=== PATIENT | female | born 1965 | race Caucasian/White ===

== ENCOUNTER 2020-06-07 08:26 | Emergency (ER) | payer MEDICAID, SELFPAY ==
[2020-06-07 08:35] VITALS: BP 198/89; PULSE 69; RESP 18; TEMP 36.7; O2SAT 97; BMI 42.3
--- NOTE | 2020-06-07 08:35 | ED.FEMALEGU ---
HPI - Female Genitourinary General Chief complaint: Urogenital-Female Stated complaint: ?uti Time Seen by Provider: 06/07/20 08:34 Source: patient Mode of arrival: ambulatory Limitations: no limitations History of Present Illness HPI Narrative: Patient with one week of frequency and now with hematuria MD elicited complaint: dysuria and UTI Pertinent past history: recurrent UTIs Onset (ago): week(s) (1) Location of symptoms: urethra Quality of pain: cramping Consistency: intermittent Urinary symptoms: Dysuria, Urgency, Frequency and Hematuria Related Data Previous Rx's Medication Instructions Recorded cephalexin 500 mg PO QID #20 cap 06/07/20 Allergies Allergy/AdvReac Type Severity Reaction Status Date / Time levofloxacin [From Levaquin] Allergy Severe THROAT Verified 06/07/20 08:41 CLOSES Review of Systems Constitutional: Constitutional: Reports no additional constitutional complaints Eyes: Eyes: Reports no additional eye complaints ENT: Denies dizziness Cardiovascular: Cardiovascular: Reports no additional cardiovascular complaints Respiratory: Respiratory: Reports as per HPI Gastrointestinal: Gastrointestinal: Reports no additional gastrointestinal complaints Genitourinary: Genitourinary: Reports no additional female genitourinary complaints Musculoskeletal: Musculoskeletal: Reports no additional musculoskeletal complaints Integumentary/Breasts: Skin/Breast: Denies rash Neurologic: Reports system reviewed and no additional complaints, except as documented, Denies dizziness and Denies Sensory deficit (Neuro) Psychiatric: Psychiatric: Denies anxiety PMF Past Medical History Medical History (Updated 06/07/20 @ 10:24 by Jorge Christianson MD) Hypertension Surgical History (Updated 06/07/20 @ 08:40 by Ivonne East) Hx of appendectomy Hx of cholecystectomy Social History Social History Smoking Status: Unknown if ever smoked Advance Directives: No Advance Directives Information Provided: No Physical Exam Vital Signs: Vital Signs: Last Vital Signs Temp 98.1 F 06/07/20 08:35 Pulse 61 06/07/20 10:20 Resp 20 06/07/20 10:20 BP 188/87 H 06/07/20 10:20 Pulse Ox 100 06/07/20 10:20 Body Mass Index 42.3 Const: Other: obese female in not distress Orientation/consciousness: oriented to person and patient oriented x3 Limitations: no limitations HENMT: Head: Yes normal to inspection Ears: external ears normal General nose exam: Normal external nose present Mouth: Normal oral and palatal mucosa present and oropharynx normal Throat: Yes posterior oropharynx normal Eyes: General: appearance normal, both eyes and all related structures Neck: Other: supple Neck: Yes normal visual inspection Chest: Chest palpation & inspection: normal inspection of the chest Resp: Auscultation: clear to auscultation bilaterally Cardio: Jugular venous distension: no JVD Rate: regular rate Rhythm: regular rhythm Heart sounds: S1 normal heart sound present and S2 normal heart sound present GI: Inspection: Yes normal to inspection Palpation (GI): Soft to palpation, nontender and No hepatosplenomegaly present Auscultation: normal bowel sounds : General: Yes no CVA tenderness Back/Spine/Pelvis: Back: no CVA tenderness Skin: General skin exam: no rashes or lesions noted Neuro: General: oriented to person and patient oriented x3 Cranial nerves: Yes CN's II-XII intact bilaterally Motor exam (neuro): 5/5 motor strength present throughout Sensory Exam: No Sensory deficit (Neuro) Extrem: General: Yes normal to inspection Psych: Appearance: grossly normal Course Course Course Narrative: Patient with UTI and HTN will start keflex and valsartan and dc home. MDM - Female Genitourinary Differential Diagnosis Differential diagnosis: Likely urinary tract infection Lab Data Labs: Lab Results 06/07/20 Range/Units 08:56 Urine Color YELLOW Urine Appearance CLOUDY Urine pH 6.0 (5.0-8.0) Ur Specific [place] >= 1.030 H (1.005-1.025) Urine Protein 2+ H (NEG-TRACE) MG/DL Urine Glucose (UA) NEG (NEG) MG/DL Urine Ketones NEG (NEG) MG/DL Urine Blood 3+ H (NEG) Urine Nitrite POS H (NEG) Ur Leukocyte Esterase 1+ H (NEG) Urine RBC 30-49 H (0) /HPF Urine WBC 15-29 H (0-4) /HPF Ur Squamous Epith Cells 2+ /LPF Urine Bacteria 1+ /LPF Discharge Plan Discharge Clinical Impression: Urinary tract infection Qualifiers: Urinary tract infection type: acute cystitis Hematuria presence: with hematuria Qualified Code(s): N30.01 - Acute cystitis with hematuria Hypertension Qualifiers: Hypertension type: essential hypertension Qualified Code(s): I10 - Essential (primary) hypertension Patient Disposition: Home, Self-Care Instructions: Urinary Tract Infection in Women (ED) Prescriptions: New cephalexin 500 mg capsule 500 mg PO QID Qty: 20 RF: 0 Referrals: Physician,None [Primary Care Provider] - 2 days
[2020-06-07 09:19] LABS: Appearance Urine CLOUDY; Color Urine YELLOW; Glucose Urine UA NEG (NEG); Leukocyte Esterase Urine 1+ (NEG); Nitrite Urine POS (NEG); Specific Gravity - Urine >= 1.030 (1.005-1.025); UACC Culture Trigger YES; Urine Blood 3+ (NEG); Urine Ketones NEG (NEG); Urine Protein 2+ MG/DL (NEG-TRACE)
[2020-06-07 09:30] LABS: Bacteria Urine 1+ /LPF; RBC Urine 30-49 /HPF (0); Squamous Epithelial Cell Urine 2+ /LPF
[2020-06-07 09:52] VITALS: BP 198/89; PULSE 79
[2020-06-07] MEDS: Valsartan 80 MG TABLET PO (09:52)
[2020-06-07] MEDS: cephALEXin 500 MG CAPSULE PO (10:04)
[2020-06-07 10:20] VITALS: BP 188/87; PULSE 61; RESP 20; O2SAT 100
== END 2020-06-07 10:32 | disposition home or self-care (01) ==
PROVIDERS: Emergency Provider Emergency Medicine
DX: N30.01 Acute cystitis with hematuria (principal); I10 Essential (primary) hypertension; Z79.899 Other long term (current) drug therapy
CPT/HCPCS: 81001; 81003; 87086; 87088; 87186; 99283; 99284

== ENCOUNTER 2020-06-21 13:00 | Emergency (ER) | payer MEDICAID, SELFPAY ==
[2020-06-21 13:26] VITALS: BP 176/67; PULSE 85; RESP 18; TEMP 36.8; O2SAT 97; BMI 42.1
--- NOTE | 2020-06-21 13:44 | ED.FEMALEGU ---
HPI - Female Genitourinary General Chief complaint: Urogenital-Female Stated complaint: UTI Time Seen by Provider: 06/21/20 13:36 Source: patient Mode of arrival: ambulatory Limitations: no limitations History of Present Illness HPI Narrative: Patient comes emergency room complaining of dysuria. Patient states that on June 07 she was diagnosed with a UTI, started on cephalexin. Then patient went to see her primary care physician due to ongoing symptoms, started on Macrobid. Patient states it is her 6th day on Macrobid. Patient states she has been compliant with antibiotic regimens, but her symptoms are still ongoing. Denies hematuria, complaining of dysuria, and constant burning sensation in the suprapubic area. Patient states that now she has mild bilateral flank pain. Patient denies fever or chills Related Data Previous Rx's Medication Instructions Recorded cephalexin 500 mg PO QID #20 cap 06/07/20 levofloxacin 500 mg PO DAILY #14 tab 06/21/20 phenazopyridine 100 mg PO TID PRN 5 Days #14 tab 06/21/20 sulfamethoxazole-trimethoprim 1 tab PO BID #14 tab 06/21/20 [Bactrim DS] Allergies Allergy/AdvReac Type Severity Reaction Status Date / Time levofloxacin [From Levaquin] Allergy Severe THROAT Verified 06/21/20 13:34 CLOSES Review of Systems Review of Systems: Constitutional : No Weight loss, No Fever, No Chills, No Night Sweats, No Fatigue, No Malaise ENT/Mouth : No Hearing loss, No Ear Pain, No Nasal Congestion, No Sinus Pain, No Hoarseness, No sore throat, No Rhinorrhea, No Swallowing Difficulty Eyes: No Eye Pain, No Swelling, No Redness, No Foreign Body, No Discharge, No Vision Changes Cardiovascular : No Chest Pain, No SOB, No Dyspnea on Exertion, No Orthopnea, No Edema, No Palpitations Respiratory : No Cough, No Sputum, No Wheezing, No Smoke Exposure, No Dyspnea Gastrointestinal : No Nausea, No Vomiting, No Diarrhea, No Constipation, complaining of suprapubic pain on palpation Genitourinary : no irregular bleeding, complaining of dysuria and constant suprapubic burning sensation, No Urinary Frequency, No Hematuria, No Urinary Incontinence, No Urgency, complaining of new onset bilateral Flank Pain, No Urinary Flow Changes, No Hesitancy Musculoskeletal : No joint pain, No Myalgias, No Joint Swelling Skin : No Skin Lesions, No rash Neuro : No Weakness, No Numbness, No Paresthesias, No Loss of Consciousness, No Dizziness, No Headache Psych : No Anxiety/Panic, No Depression, No SI/HI/AH/VH, No Social Issues, Heme/Lymph: No Bruising, No Bleeding,No Lymphadenopathy Endocrine : No Polyuria, No Polydipsia, No Temperature Intolerance [facility] Past Medical History Medical History Hypertension Surgical History Hx of appendectomy Hx of cholecystectomy Social History Social History Smoking Status: Unknown if ever smoked Smoked in Last 30 Days: No Use of substances other than those prescribed or required for medical reasons: No Advance Directives: No Advance Directives Information Provided: No Physical Exam Vital Signs: Vital Signs: Last Vital Signs Temp 97.5 F 06/21/20 15:03 Pulse 80 06/21/20 15:03 Resp 16 06/21/20 15:03 BP 125/82 06/21/20 15:03 Pulse Ox 95 06/21/20 15:03 Body Mass Index 42.1 Appearance: Alert. Oriented X3. No acute distress. Eyes: Pupils equal, round and reactive to light. ENT: Pharynx normal. Neck: Normal inspection. Neck supple. No lymph nodes noted. No crepitus CVS: Normal heart rate and rhythm. Pulses normal. Normal S1 and S2 Respiratory: No respiratory distress. Breath sounds normal. No Wheezing. No rales Abdomen: Soft, mild discomfort to deep palpation over the suprapubic area, no CVA tenderness, No rigidity. No distention. good BS x4 Skin: Skin warm and dry. Normal skin color. Normal skin turgor. Extremities: No lower extremity edema. No lower extremity edema. No Lacerations. No Rash Neuro: Oriented X 3. No motor deficit. No sensory deficit. Moving all extermities. No slurred speech. Course Course Course Narrative: Patient's chemistry and 2nd lactic acid is pending. At this time, sepsis is not suspected. Patient received fluids and IV levofloxacin. Per patient's previous labs, she is sensitive to levofloxacin. The urine analysis is better than the previous UA. However, clinically patient does have pyelonephritis. Patient still receiving fluids. Labs pending as mentioned above, patient likely to be discharged home. Sign-out given to Dr. Stallings Of note, a prescription of levofloxacin was sent to the patient's pharmacy accidentally. I spoke to the [facility]ist [facility] to [facility] it, patient is allergic to levofloxacin. The order has been canceled. Prescription for Bactrim was sent. MDM - Female Genitourinary Lab Data Result diagrams: 06/21/20 14:54 06/21/20 14:54 Labs: Lab Results 06/21/20 06/21/20 06/21/20 Range/Units 13:37 14:53 14:54 WBC 8.7 (4.8-10.8) X10*3/uL RBC 5.01 (4.20-5.50) X10*6/uL Hgb 15.3 (12.0-16.0) g/dl Hct 46.1 (37-47) % MCV 92.0 (80-98) fL MCH 30.5 (27.0-33.0) pg MCHC 33.2 (31.0-35.0) g/dl RDW 13.3 (11.0-16.0) % Plt Count 386 (160-400) X10*3/uL MPV 10.4 (9.4-12.3) fL Immature Gran % (Auto) 0.1 (0.0-0.4) % Neut % (Auto) 56.0 (45-73) % Lymph % (Auto) 36.3 (20-40) % [place] % (Auto) 6.9 (2-11) % Eos % (Auto) 0.5 (0-4) % Baso % (Auto) 0.2 (0-2) % Lymph # (Auto) 3.2 (1.2-4.9) X10*3/uL [place] # (Auto) 0.6 (0.1-1.2) X10*3/uL Eos # (Auto) 0.0 (0.0-0.4) X10*3/uL Baso # (Auto) 0.0 (0.0-0.2) X10*3/uL Abs Immat Gran (auto) 0.01 (0.00-0.03) X10*3/uL Absolute Neuts (auto) 4.9 (2.0-8.3) X10*3/uL Absolute Nucleated RBC 0.000 (0.0-0.012) X10*3/uL Nucleated RBC % (auto) 0.0 (0.0-0.2) /100WBC Lactic Acid 2.1 H* (0.5-2.0) mmol/L Urine Color YELLOW Urine Appearance CLEAR Urine pH 7.0 (5.0-8.0) Ur Specific [place] 1.010 (1.005-1.025) Urine Protein NEG (NEG-TRACE) MG/DL Urine Glucose (UA) NEG (NEG) MG/DL Urine Ketones NEG (NEG) MG/DL Urine Blood NEG (NEG) Urine Nitrite NEG (NEG) Ur Leukocyte Esterase 1+ H (NEG) Urine RBC 0 (0) /HPF Urine WBC 1-4 (0-4) /HPF Ur Squamous Epith Cells 2+ /LPF Urine Bacteria NONE /LPF Discharge Plan Discharge Clinical Impression: Pyelonephritis Patient Disposition: Home, Self-Care Instructions: Kidney Infection (ED) Additional Instructions: Please follow-up with your primary care physician tomorrow. If you have any worsening or new symptoms, please return to the emergency room or call 911 Prescriptions: New levofloxacin 500 mg tablet 500 mg PO DAILY Qty: 14 RF: 0 phenazopyridine 100 mg tablet 100 mg PO TID PRN (Reason: pain) 5 Days Qty: 14 RF: 0 sulfamethoxazole-trimethoprim [Bactrim DS] 800-160 mg tablet 1 tab PO BID Qty: 14 RF: 0 No Action cephalexin 500 mg capsule 500 mg PO QID Qty: 20 RF: 0
[2020-06-21 13:49] LABS: Glucose Urine UA NEG (NEG); Leukocyte Esterase Urine 1+ (NEG); Nitrite Urine NEG (NEG); UACC Culture Trigger YES; Urine Blood NEG (NEG); Urine Ketones NEG (NEG); Urine Protein NEG (NEG-TRACE)
[2020-06-21 13:50] LABS: Appearance Urine CLEAR; Color Urine YELLOW
[2020-06-21 13:57] LABS: RBC Urine 0 /HPF (0); Squamous Epithelial Cell Urine 2+ /LPF
[2020-06-21 14:59] LABS: MANUAL DIFF FLAG NO
[2020-06-21 15:03] VITALS: BP 125/82; PULSE 80; RESP 16; TEMP 36.4; O2SAT 95
[2020-06-21 15:11] LABS: Basophils Percent Auto 0.2 % (0-2); Eosinophils Percent Auto 0.5 % (0-4); Hematocrit 46.1 % (37-47); Hemoglobin 15.3 g/dl (12.0-16.0); Imm Gran Abs Auto 0.01 X10*3/uL (0.00-0.03); Imm Gran Pct Auto 0.1 % (0.0-0.4); Lymphocytes Absolute Auto 3.2 X10*3/uL (1.2-4.9); Lymphocytes Percent Auto 36.3 % (20-40); Mean Corpuscular HGB Conc 33.2 g/dl (31.0-35.0); Mean Corpuscular Hemoglobin 30.5 pg (27.0-33.0); Mean Platelet Volume 10.4 fL (9.4-12.3); Monocytes Absolute Auto 0.6 X10*3/uL (0.1-1.2); Monocytes Percent Auto 6.9 % (2-11); Neutrophils Absolute Auto 4.9 X10*3/uL (2.0-8.3); Platelet Count 386 X10*3/uL (160-400); Red Blood Count 5.01 X10*6/uL (4.20-5.50); Red Cell Distribution Width 13.3 % (11.0-16.0); White Blood Count 8.7 X10*3/uL (4.8-10.8)
[2020-06-21 15:38] LABS: Lactic Acid 2.1 mmol/L (0.5-2.0)
[2020-06-21] MEDS: 0.9 % Sodium Chloride 1,000 ML 999 ML IVCONT (16:01)
[2020-06-21 16:57] LABS: Reflex Lactate? Lactic Acid Added
[2020-06-21 19:17] LABS: ~Lactic Acid-LAB USE ONLY 1.3 mmol/L (0.5-2.0)
[2020-06-21 19:20] LABS: Anion Gap 15 (12-20); Blood Urea Nitrogen 13 mg/dL (9-16); Calcium 9.3 mg/dL (8.4-10.2); Carbon Dioxide 26 mmol/L (22-29); Chloride 102 mmol/L (96-108); Creatinine Clr Calc Pharmacy 106.7; Estimated Glomerular Filt Rate > 60; Glucose Random 106 mg/dL (60-115); Potassium 3.4 mmol/L (3.3-5.1); Sodium 140 mmol/L (135-145)
== END 2020-06-21 20:04 | disposition home or self-care (01) ==
PROVIDERS: Emergency Medicine; Emergency Provider Emergency Medicine Emergency Medical Services; PCP Internal Medicine
DX: N12 Tubulo-interstitial nephritis, not specified as acute or chronic (principal); I10 Essential (primary) hypertension; Z79.899 Other long term (current) drug therapy; Z79.2 Long term (current) use of antibiotics
CPT/HCPCS: 36415; 80048; 81001; 81003; 83605; 85025; 87040; 87086; 96360; 99284

== ENCOUNTER 2020-06-25 21:23 | Emergency (ER) | payer MEDICAID, SELFPAY ==
--- NOTE | ~2020-06-25 | CT_ITS ---
EXAMINATION: CT CHEST WITHOUT CONTRAST CLINICAL INFORMATION: Fever, cough. COMPARISON: 06/25/2020. TECHNIQUE: Contiguous axial thin section helical images of the chest were performed without contrast. The data set was reformatted in the coronal and sagittal planes and reviewed on an independent workstation. DLP: 387 mGy-cm. FINDINGS: The heart is of normal size. There is no pericardial effusion. There is neither mediastinal, hilar nor axillary lymphadenopathy. There are no chest wall masses. Review of lung windows demonstrates that there are neither pleural effusions nor pneumothoraces. There is mild dependent bibasilar atelectasis. There are no consolidations. There are no pulmonary parenchymal nodules. Images of the upper abdomen demonstrate that the liver is of normal size and attenuation without focal lesions. Normal adrenal glands are identified. There is a small hiatal hernia. Bone windows: Neither sclerotic nor lytic bone lesions are identified. CT/CT chest wo con IMPRESSION: No consolidations. Mild dependent bibasilar atelectasis. Small hiatal hernia. Automated exposure control (Care Dose) Adjustment of the mA and/or kv according to patient size (this includes techniques or standardized protocols for targeted exams where dose is matched to indication / reason for exam; i.e. extremities or head).
--- NOTE | ~2020-06-25 | XR_ITS ---
EXAMINATION: XR CHEST CLINICAL INFORMATION: Fever and cough. COMPARISON: Chest 05/12/2018 TECHNIQUE: Frontal view of the chest was obtained. FINDINGS: No significant abnormality is noted involving the heart, lungs, mediastinum, bony thorax or soft tissues. XR/XR chest 1V IMPRESSION: Unremarkable chest examination.
[2020-06-25 21:44] VITALS: BP 152/86; PULSE 115; RESP 20; TEMP 39.5; O2SAT 98; BMI 42.1
--- NOTE | 2020-06-25 22:20 | ECG_ITS ---
Test Reason : DYSPNEA Blood Pressure : / mmHG Vent. Rate : 102 BPM Atrial Rate : 102 BPM P-R Int : 156 ms QRS Dur : 110 ms QT Int : 362 ms P-R-T Axes : 032 004 013 degrees QTc Int : 471 ms Sinus tachycardia Otherwise normal ECG When compared with ECG of 12-MAY-2018 09:26, No significant change was found Referred By: Afshin Lee Electronically Signed By:Abiodun Barrera
[2020-06-25 22:21] VITALS: BP 115/76; PULSE 108; RESP 23; TEMP 39.7; O2SAT 97
--- NOTE | 2020-06-25 22:26 | ED_ITS ---
HPI - URI/Sore Throat General Chief Complaint: Upper Respiratory Symptoms Stated Complaint: fever,cough Time Seen by Provider: 06/25/20 22:19 Source: patient Mode of arrival: ambulatory Limitations: no limitations History of Present Illness HPI Narrative: 55-year-old female presented today with 1 day history of fever, chills, and generalized body ache, and dry cough. Patient declined any recent travel. Patient declined any sick contact. Patient has been using face mask and following procedure for COVID prophylaxis. Related Data Previous Rx's Medication Instructions Recorded cephalexin 500 mg PO QID #20 cap 06/07/20 levofloxacin 500 mg PO DAILY #14 tab 06/21/20 phenazopyridine 100 mg PO TID PRN 5 Days #14 tab 06/21/20 sulfamethoxazole-trimethoprim 1 tab PO BID #14 tab 06/21/20 [Bactrim DS] Allergies Allergy/AdvReac Type Severity Reaction Status Date / Time levofloxacin [From Levaquin] Allergy Severe THROAT Verified 06/21/20 13:34 CLOSES Review of Systems Review of Systems: All other systems are reviewed and are negative Constitutional: Reports as per HPI and Reports no additional constitutional co mplaints Eyes: Reports as per HPI and Reports no additional eye complaints Reports system reviewed and no additional complaints, except as documented Cardiovascular: Reports as per HPI and Reports no additional cardiovascular complaints Respiratory: Reports as per HPI and Reports no additional respiratory complaints Gastrointestinal: Reports as per HPI and Reports no additional gastrointestinal complaints Genitourinary: Reports no additional female genitourinary complaints Musculoskeletal: Reports no additional musculoskeletal complaints Skin/Breast: Reports system reviewed and no additional complaints, except as docu Psychiatric: Reports no additional psychiatric complaints Endocrine: Reports no additional endocrine complaints Hematologic/Lymphatic: Reports no additional hematologic/lymphatic complaints Allergic/Immunologic: Reports no additional allergic/immunologic complaints Reports system reviewed and no additional complaints, except as documented and Reports Abnormal speech present [facility] Past Medical History Medical History Hypertension Surgical History Hx of appendectomy Hx of cholecystectomy Social History Social History Smoking Status: Unknown if ever smoked Advance Directives: No Advance Directives Information Provided: No Physical Exam Vital Signs: Vital Signs: Last Vital Signs Temp 101.3 F H 06/26/20 00:14 Pulse 86 06/26/20 01:55 Resp 19 06/26/20 01:55 BP 117/73 06/26/20 01:55 Pulse Ox 95 06/26/20 01:55 Body Mass Index 42.1 Vital signs have been reviewed as appeared to be correct. Blood pressure elevated. Heart rate is elevated. Respiration rate normal. Temperature is febrile. Oxygen saturation normal. Appearance: Alert. Oriented X3. No acute distress. Head: Normal external exam. Normocephalic. Atraumatic. No Guevara signs noted. No raccoon eyes noted Eyes: PERRLA. EOMI. Conjunctiva and sclera normal. Eyelids normal. ENT: TM's Normal. Pharynx normal. Uvula midline. Moist mucous membranes. No trismus noted. No drooling noted. No muffled voice noted. Neck: Normal inspection. Neck supple. FROM. No adenopathy. Thyroid Normal. No meningeal signs. No neck mass noted. CVS: Normal heart rate and rhythm. Heart sound normal. No murmurs noted. Pulses normal throughout. Respiratory: No respiratory distress. Painless inspiration. Breath sounds normal. No wheezes/rales/rhonchi noted. Chest nontender. No accessory muscle usage noted or decreased air movement noted. Abdomen: Soft and nontender. Bowel sounds normal in all 4 quadrants. No distention noted. No organomegaly noted. No visible injury noted. Back: No CVA tenderness. Full range of motion noted. Skin: Skin warm and dry. Normal skin color. Normal skin turgor. No rashes/lesions/lacerations noted. Extremities: No lower extremity edema. Extremities exhibit normal range of motion. Extremities nontender. Neuro: Oriented X 3. No motor deficit. No sensory deficit. Reflexes normal. Course Course Course Narrative: Assessment and plan. 55-year-old came in for high fever, patient had extensive workup in the emergency department which showed no source of the fever today. Patient received IV antibiotic, 1 dose of ceftriaxone thought to be UTI patient now feels better. No reason to continue antibiotic or keeping the patient in the hospital will discharge the patient with instruction to return back if fever resume or persist. Patient was on oral antibiotic for when she reported UTI (patient finished the course of antibiotic). [facility] - URI/Sore Throat Lab Data Attestation: I reviewed the patient's lab results. Result diagrams: 06/25/20 22:26 06/25/20 22:26 Labs: Lab Results 06/25/20 06/25/20 06/25/20 Range/Units 22:26 22:26 22:26 WBC 11.1 H (4.8-10.8) X10*3/uL RBC 4.57 (4.20-5.50) X10*6/uL Hgb 13.9 (12.0-16.0) g/dl Hct 41.5 (37-47) % MCV 90.8 (80-98) fL MCH 30.4 (27.0-33.0) pg MCHC 33.5 (31.0-35.0) g/dl RDW 13.3 (11.0-16.0) % Plt Count 350 (160-400) X10*3/uL MPV 10.6 (9.4-12.3) fL Immature Gran % (Auto) 0.3 (0.0-0.4) % Neut % (Auto) 78.2 H (45-73) % Lymph % (Auto) 13.2 L (20-40) % [place] % (Auto) 5.8 (2-11) % Eos % (Auto) 2.3 (0-4) % Baso % (Auto) 0.2 (0-2) % Lymph # (Auto) 1.5 (1.2-4.9) X10*3/uL [place] # (Auto) 0.6 (0.1-1.2) X10*3/uL Eos # (Auto) 0.3 (0.0-0.4) X10*3/uL Baso # (Auto) 0.0 (0.0-0.2) X10*3/uL Abs Immat Gran (auto) 0.03 (0.00-0.03) X10*3/uL Absolute Neuts (auto) 8.7 H (2.0-8.3) X10*3/uL Absolute Nucleated RBC 0.000 (0.0-0.012) X10*3/uL Nucleated RBC % (auto) 0.0 (0.0-0.2) /100WBC Sodium 138 (135-145) mmol/L Potassium 3.7 (3.3-5.1) mmol/L Chloride 98 (96-108) mmol/L Carbon Dioxide 28 (22-29) mmol/L Anion Gap 16 (12-20) BUN 17 H (9-16) mg/dL Creatinine 0.90 (0.5-1.4) mg/dL Estim Creat Clear Calc 84.2 Estimated GFR > 60 Random Glucose 118 H (60-115) mg/dL Lactic Acid 2.0 (0.5-2.0) mmol/L Calcium 9.0 (8.4-10.2) mg/dL Total Bilirubin 0.8 (0.0-1.0) mg/dL Direct Bilirubin 0.2 (0.0-0.5) mg/dL AST 16 (5-31) U/L ALT 22 (0-31) U/L Alkaline Phosphatase 62 (39-117) U/L Troponin I High Sens (<3.5-17.0) ng/L B-Natriuretic Peptide (<100) pg/mL Total Protein 7.1 (6.5-8.0) g/dL Albumin 4.3 (3.5-5.0) g/dL Lipase 29 (8-78) U/L Urine Color Urine Appearance Urine pH (5.0-8.0) Ur Specific [place] (1.005-1.025) Urine Protein (NEG-TRACE) MG/DL Urine Glucose (UA) (NEG) MG/DL Urine Ketones (NEG) MG/DL Urine Blood (NEG) Urine Nitrite (NEG) Ur Leukocyte Esterase (NEG) COVID-19 ([facility]) (Negative) COVID-19 Clin Com 06/25/20 06/25/20 06/26/20 Range/Units 22:26 22:26 00:21 WBC (4.8-10.8) X10*3/uL RBC (4.20-5.50) X10*6/uL Hgb (12.0-16.0) g/dl Hct (37-47) % MCV (80-98) fL MCH (27.0-33.0) pg MCHC (31.0-35.0) g/dl RDW (11.0-16.0) % Plt Count (160-400) X10*3/uL MPV (9.4-12.3) fL Immature Gran % (Auto) (0.0-0.4) % Neut % (Auto) (45-73) % Lymph % (Auto) (20-40) % [place] % (Auto) (2-11) % Eos % (Auto) (0-4) % Baso % (Auto) (0-2) % Lymph # (Auto) (1.2-4.9) X10*3/uL [place] # (Auto) (0.1-1.2) X10*3/uL Eos # (Auto) (0.0-0.4) X10*3/uL Baso # (Auto) (0.0-0.2) X10*3/uL Abs Immat Gran (auto) (0.00-0.03) X10*3/uL Absolute Neuts (auto) (2.0-8.3) X10*3/uL Absolute Nucleated RBC (0.0-0.012) X10*3/uL Nucleated RBC % (auto) (0.0-0.2) /100WBC Sodium (135-145) mmol/L Potassium (3.3-5.1) mmol/L Chloride (96-108) mmol/L Carbon Dioxide (22-29) mmol/L Anion Gap (12-20) BUN (9-16) mg/dL Creatinine (0.5-1.4) mg/dL Estim Creat Clear Calc Estimated GFR Random Glucose (60-115) mg/dL Lactic Acid (0.5-2.0) mmol/L Calcium (8.4-10.2) mg/dL Total Bilirubin (0.0-1.0) mg/dL Direct Bilirubin (0.0-0.5) mg/dL AST (5-31) U/L ALT (0-31) U/L Alkaline Phosphatase (39-117) U/L Troponin I High Sens < 3.5 (<3.5-17.0) ng/L B-Natriuretic Peptide 19 (<100) pg/mL Total Protein (6.5-8.0) g/dL Albumin (3.5-5.0) g/dL Lipase (8-78) U/L Urine Color YELLOW Urine Appearance CLEAR Urine pH 6.0 (5.0-8.0) Ur Specific [place] >= 1.030 H (1.005-1.025) Urine Protein NEG (NEG-TRACE) MG/DL Urine Glucose (UA) NEG (NEG) MG/DL Urine Ketones NEG (NEG) MG/DL Urine Blood NEG (NEG) Urine Nitrite NEG (NEG) Ur Leukocyte Esterase NEG (NEG) COVID-19 ([facility]) Negative (Negative) COVID-19 Clin Com See Note Imaging Data Chest x-ray: Radiologist's impression: No acute pathology. CT chest: Radiologist's impression: No acute pathology. Discharge Plan Discharge Clinical Impression: Viral infection Fever Qualifiers: Encounter type: initial encounter Patient Disposition: Home, Self-Care Instructions: Viral Syndrome (ED) Prescriptions: No Action cephalexin 500 mg capsule 500 mg PO QID Qty: 20 RF: 0 levofloxacin 500 mg tablet 500 mg PO DAILY Qty: 14 RF: 0 phenazopyridine 100 mg tablet 100 mg PO TID PRN (Reason: pain) 5 Days Qty: 14 RF: 0 sulfamethoxazole-trimethoprim [Bactrim DS] 800-160 mg tablet 1 tab PO BID Qty: 14 RF: 0 Referrals: Physician,Unknown [Primary Care Provider] - 2 days Stand Alone Forms: Work/School Release
[2020-06-25 22:42] LABS: MANUAL DIFF FLAG NO
[2020-06-25 22:43] LABS: Basophils Percent Auto 0.2 % (0-2); Eosinophils Absolute Auto 0.3 X10*3/uL (0.0-0.4); Eosinophils Percent Auto 2.3 % (0-4); Hematocrit 41.5 % (37-47); Hemoglobin 13.9 g/dl (12.0-16.0); Imm Gran Abs Auto 0.03 X10*3/uL (0.00-0.03); Imm Gran Pct Auto 0.3 % (0.0-0.4); Lymphocytes Absolute Auto 1.5 X10*3/uL (1.2-4.9); Lymphocytes Percent Auto 13.2 % (20-40); Mean Corpuscular HGB Conc 33.5 g/dl (31.0-35.0); Mean Corpuscular Hemoglobin 30.4 pg (27.0-33.0); Mean Corpuscular Volume 90.8 fL (80-98); Mean Platelet Volume 10.6 fL (9.4-12.3); Monocytes Absolute Auto 0.6 X10*3/uL (0.1-1.2); Monocytes Percent Auto 5.8 % (2-11); Neutrophils Absolute Auto 8.7 X10*3/uL (2.0-8.3); Neutrophils Percent Auto 78.2 % (45-73); Platelet Count 350 X10*3/uL (160-400); Red Blood Count 4.57 X10*6/uL (4.20-5.50); Red Cell Distribution Width 13.3 % (11.0-16.0); White Blood Count 11.1 X10*3/uL (4.8-10.8)
[2020-06-25] MEDS: Acetaminophen 325 MG TABLET 650 MG PO (22:52)
[2020-06-25 22:55] LABS: COVID-19 Test Negative (Negative); IDNOW Serial# 9DD0AD1C
[2020-06-25 22:56] VITALS: BP 133/67; PULSE 104; RESP 27; O2SAT 99
[2020-06-25 23:05] LABS: Alanine Aminotransferase 22 U/L (0-31); Albumin Level 4.3 g/dL (3.5-5.0); Alkaline Phosphatase 62 U/L (39-117); Anion Gap 16 (12-20); Aspartate Amino Transferase 16 U/L (5-31); Bilirubin Direct 0.2 mg/dL (0.0-0.5); Bilirubin Total 0.8 mg/dL (0.0-1.0); Blood Urea Nitrogen 17 mg/dL (9-16); Carbon Dioxide 28 mmol/L (22-29); Chloride 98 mmol/L (96-108); Creatinine Clr Calc Pharmacy 84.2; Estimated Glomerular Filt Rate > 60; Glucose Random 118 mg/dL (60-115); Lipase 29 U/L (8-78); Potassium 3.7 mmol/L (3.3-5.1); Sodium 138 mmol/L (135-145); Total Protein 7.1 g/dL (6.5-8.0)
[2020-06-25 23:10] LABS: B Type Natriuretic Peptide 19 pg/mL (<100); Troponin-I High Sensitivity < 3.5 ng/L (<3.5-17.0)
[2020-06-26] VITALS (9 sets, daily range): BP systolic 93–117; BP diastolic 40–73; PULSE 72–100; RESP 17–21; TEMP 37.4–38.6; O2SAT 95–97
[2020-06-26 00:30] LABS: Glucose Urine UA NEG (NEG); Leukocyte Esterase Urine NEG (NEG); Nitrite Urine NEG (NEG); Specific Gravity - Urine >= 1.030 (1.005-1.025); Urine Blood NEG (NEG); Urine Ketones NEG (NEG); Urine Protein NEG (NEG-TRACE)
[2020-06-26 00:34] LABS: Color Urine YELLOW
[2020-06-26 00:35] LABS: Appearance Urine CLEAR
[2020-06-26] MEDS: cefTRIAXone sodium 1 GM in 0.9 % Sodium Chloride 50 ML IV (01:51)
== END 2020-06-26 03:58 | disposition home or self-care (01) ==
PROVIDERS: Emergency Provider Emergency Medicine
DX: B34.9 Viral infection, unspecified (principal); Z20.822 Contact with and (suspected) exposure to COVID-19; R50.9 Fever, unspecified; I10 Essential (primary) hypertension; Z90.49 Acquired absence of other specified parts of digestive tract
CPT/HCPCS: 36415; 71045; 71250; 80048; 80076; 81003; 83605; 83690; 83880; 84484; 85025; 87040; 87635; 93005; 96361; 96365; 99283; 99284; J0696

== ENCOUNTER 2020-06-30 16:17 | Outpatient (REF) | payer MEDICAID, SELFPAY | END 2020-06-30 16:18 | disposition home or self-care (01) | LOC: HO.LAB 16:17 | PROVIDERS: PCP Internal Medicine; Visit Provider Internal Medicine | DX: I10 Essential (primary) hypertension (principal); N30.00 Acute cystitis without hematuria; R35.8 Other polyuria | CPT/HCPCS: 87086 ==

== ENCOUNTER 2020-10-07 14:41 | Outpatient (REF) | payer MEDICAID, SELFPAY ==
[2020-10-07 16:01] LABS: MANUAL DIFF FLAG NO
[2020-10-07 16:04] LABS: Basophils Percent Auto 0.2 % (0-2); Eosinophils Absolute Auto 0.1 X10*3/uL (0.0-0.4); Eosinophils Percent Auto 1.2 % (0-4); Hemoglobin 13.9 g/dl (12.0-16.0); Imm Gran Abs Auto 0.02 X10*3/uL (0.00-0.03); Imm Gran Pct Auto 0.2 % (0.0-0.4); Lymphocytes Absolute Auto 3.8 X10*3/uL (1.2-4.9); Lymphocytes Percent Auto 39.7 % (20-40); Mean Corpuscular HGB Conc 33.9 g/dl (31.0-35.0); Mean Corpuscular Hemoglobin 31.2 pg (27.0-33.0); Mean Corpuscular Volume 92.1 fL (80-98); Mean Platelet Volume 11.5 fL (9.4-12.3); Monocytes Absolute Auto 0.7 X10*3/uL (0.1-1.2); Monocytes Percent Auto 7.4 % (2-11); Neutrophils Percent Auto 51.3 % (45-73); Platelet Count 334 X10*3/uL (160-400); Red Blood Count 4.45 X10*6/uL (4.20-5.50); Red Cell Distribution Width 13.1 % (11.0-16.0); White Blood Count 9.7 X10*3/uL (4.8-10.8)
[2020-10-07 16:13] LABS: Estimated Average Glucose 123 mg/dL; Hemoglobin A1C 148.8955 umol/L; Hemoglobin A1c % 5.9 %
[2020-10-07 16:29] LABS: Alanine Aminotransferase 20 U/L (0-31); Albumin Level 4.4 g/dL (3.5-5.0); Alkaline Phosphatase 51 U/L (39-117); Anion Gap 16 (12-20); Aspartate Amino Transferase 19 U/L (5-31); Bilirubin Total 0.7 mg/dL (0.0-1.0); Blood Urea Nitrogen 19 mg/dL (9-16); Calcium 9.9 mg/dL (8.4-10.2); Carbon Dioxide 23 mmol/L (22-29); Chloride 103 mmol/L (96-108); Cholesterol 250 mg/dL; Estimated Glomerular Filt Rate > 60; Glucose Random 89 mg/dL (60-115); HDL Cholesterol 68 mg/dL; LDL Cholesterol Calculated 157 mg/dl; Potassium 3.7 mmol/L (3.3-5.1); Sodium 138 mmol/L (135-145); Triglycerides 129 mg/dL
== END 2020-10-07 14:42 | disposition home or self-care (01) ==
LOC: HO.LAB 14:41
PROVIDERS: PCP Internal Medicine; Visit Provider Internal Medicine
DX: I10 Essential (primary) hypertension (principal); R21 Rash and other nonspecific skin eruption; Z72.0 Tobacco use
CPT/HCPCS: 36415; 80053; 80061; 83036; 85025; 87086

== ENCOUNTER 2020-10-17 15:35 | Outpatient (REF) | payer MEDICAID, SELFPAY ==
--- NOTE | ~2020-10-17 | XR_ITS ---
EXAMINATION: LUMBAR SPINE, SACRUM AND PELVIS X-RAY CLINICAL INFORMATION: Pain COMPARISON: None TECHNIQUE: 3 views of the lumbar spine, 3 views of the sacrum and one view pelvis FINDINGS: Lumbar spine: Bone alignment is normal. No fracture or dislocation is seen. Disc spaces are normal. There is lower lumbar spine facet arthritis. There is evidence of atherosclerotic disease. There are surgical clips in the right lower quadrant. Sacrum: No fracture or dislocation is seen. The sacroiliac joints are normal. Soft tissues are normal. Pelvis: Bone alignment is normal. No fracture or dislocation is seen. Joint spaces are normal. There are surgical clips in the right lower quadrant. XR/XR pelvis 1-2V IMPRESSION: Mild lower lumbar spine facet arthritis.
--- NOTE | ~2020-10-17 | XR_ITS ---
EXAMINATION: LUMBAR SPINE, SACRUM AND PELVIS X-RAY CLINICAL INFORMATION: Pain COMPARISON: None TECHNIQUE: 3 views of the lumbar spine, 3 views of the sacrum and one view pelvis FINDINGS: Lumbar spine: Bone alignment is normal. No fracture or dislocation is seen. Disc spaces are normal. There is lower lumbar spine facet arthritis. There is evidence of atherosclerotic disease. There are surgical clips in the right lower quadrant. Sacrum: No fracture or dislocation is seen. The sacroiliac joints are normal. Soft tissues are normal. Pelvis: Bone alignment is normal. No fracture or dislocation is seen. Joint spaces are normal. There are surgical clips in the right lower quadrant. XR/XR sacrum coccyx min 2V IMPRESSION: Mild lower lumbar spine facet arthritis.
--- NOTE | ~2020-10-17 | XR_ITS ---
EXAMINATION: LUMBAR SPINE, SACRUM AND PELVIS X-RAY CLINICAL INFORMATION: Pain COMPARISON: None TECHNIQUE: 3 views of the lumbar spine, 3 views of the sacrum and one view pelvis FINDINGS: Lumbar spine: Bone alignment is normal. No fracture or dislocation is seen. Disc spaces are normal. There is lower lumbar spine facet arthritis. There is evidence of atherosclerotic disease. There are surgical clips in the right lower quadrant. Sacrum: No fracture or dislocation is seen. The sacroiliac joints are normal. Soft tissues are normal. Pelvis: Bone alignment is normal. No fracture or dislocation is seen. Joint spaces are normal. There are surgical clips in the right lower quadrant. XR/XR lumbar spine 2-3V IMPRESSION: Mild lower lumbar spine facet arthritis.
== END 2020-10-17 15:36 | disposition home or self-care (01) ==
LOC: HO.XRAY 15:35
PROVIDERS: PCP Internal Medicine; Visit Provider Internal Medicine Medical Oncology
DX: M54.5 Low back pain (principal)
CPT/HCPCS: 72100; 72170; 72220

== ENCOUNTER 2021-05-10 09:00 | Emergency (ER) | payer MEDICAID, SELFPAY ==
[2021-05-10] VITALS (8 sets, daily range): BP systolic 146–202; BP diastolic 70–110; PULSE 65–135; RESP 16–19; TEMP 36.6–36.8; O2SAT 98–100; BMI 40.9
--- NOTE | ~2021-05-10 | CT_ITS ---
CT head/brain wo con CLINICAL INFORMATION: Reason for Exam headache, dizziness COMPARISON: No prior CT scan available for comparison. TECHNIQUE: Department standard protocol. This CT examination was performed using dose optimization techniques as appropriate, variously including the following: *Automated exposure control *Adjustment of mA and/or kV according to patient size (this includes techniques or standardized protocols for targeted exams where dose is matched to indication/reason for exam; i.e. extremities or head) *Use of iterative reconstruction technique DLP: 652 mGy-cm FINDINGS: CEREBRAL HEMISPHERES: There is no evidence of intra-axial or extra-axial mass, hemorrhage or acute infarct. BRAIN PARENCHYMA: Normal evans-white matter differentiation. SUBDURAL SPACE: No bleed. BASAL GANGLIA AND PINEAL GLAND: Unremarkable VENTRICLES: Symmetric and normal in size. CEREBELLUM AND BRAINSTEM: No space-occupying mass, hemorrhage or acute infarct. CEREBELLOPONTINE ANGLES: No lesion found. ORBITS: No intraorbital mass. VESSELS: Unremarkable SKULL BASE: Unremarkable INCLUDED SINUSES AT SKULL BASE: Clear SKULL AND SKIN: No fracture or bone lesion found. CT/CT head/brain wo con IMPRESSION: No CT evidence of acute intracranial mass, infarct or bleed, no explanation for patient's symptoms. Normal CT scan does not rule out the possibility of hyperacute infarct in the first 12 hours. If patient symptoms persist may consider correlation with MRI, which is more sensitive for early acute infarct.
--- NOTE | ~2021-05-10 | MR_ITS ---
EXAMINATION: MR BRAIN WITHOUT CONTRAST CLINICAL INFORMATION: Dizziness. Posterior circulation stroke. COMPARISON: CT head from 05/10/2021. TECHNIQUE: MRI of the brain was obtained using routine sequences without contrast. FINDINGS: No focal restricted diffusion is demonstrated to suggest acute or subacute cerebral ischemia. No evidence of acute or chronic hemorrhagic products on heme-sensitive imaging. Few nonspecific scattered periventricular and deep white matter T2 FLAIR hyperintensities most commonly seen with mild underlying microangiopathy. Proportional prominence of the ventricles and sulcal spaces without evidence of obstructive hydrocephalus. No abnormal mass effect. No midline shift. Normal appearance of the pituitary gland. Normal positioning of the cerebellar tonsils. Normal arterial and venous vascular flow voids are present. Normal, homogeneous marrow signal. Mild mucosal thickening of the paranasal sinuses. Moderate leftward nasal septal deviation. No signal abnormalities within the mastoids. MR/MR head/brain wo con IMPRESSION: 1. No acute intracranial abnormalities. 2. Mild nonspecific white matter changes most commonly seen with underlying microangiopathy.
--- NOTE | 2021-05-10 09:30 | ECG_ITS ---
Test Reason : DIZZINESS Blood Pressure : / mmHG Vent. Rate : 069 BPM Atrial Rate : 069 BPM P-R Int : 184 ms QRS Dur : 102 ms QT Int : 416 ms P-R-T Axes : 013 -03 006 degrees QTc Int : 445 ms Normal sinus rhythm Minimal voltage criteria for LVH, may be normal variant ( [place] product ) Inferior infarct , age undetermined Cannot rule out Anterior infarct , age undetermined Abnormal ECG When compared with ECG of 25-JUN-2020 22:49, No significant change was found Referred By: Yahaira Medina Electronically Signed By:LAKSHMI MELCHOR MD
--- NOTE | 2021-05-10 10:16 | ED.DIZZY ---
HPI - Dizziness General Chief Complaint: Dizziness <Yahaira MedinaHARVINDER - Last Filed: 05/10/21 18:03> Stated Complaint: dizzy <Yahaira MedinaHARVINDER - Last Filed: 05/10/21 18:03> Time Seen by Provider: 05/10/21 09:23 <Yahaira MedinaHARVINDER - Last Filed: 05/10/21 18:03> Source: patient <Yahaira Medina HARVINDER - Last Filed: 05/10/21 18:03> Mode of arrival: ambulatory <Yahaira MedinaHARVINDER - Last Filed: 05/10/21 18:03> Limitations: no limitations <Yahaira MedinaHARVINDER - Last Filed: 05/10/21 18:03> History of Present Illness HPI Narrative: Patient is a 55-year-old female with reports of history of CVA in reportedly due to hypertension. Patient states that she awoke this morning around 430 without any symptoms. Around 7 this morning while she was standing at work she noticed sudden onset of severe dizziness. dizziness is described as a room spinning sensation and feeling off balance. It has been Constant since onset but with variable intensity. She does note some improvement when sitting down in worsening while standing or with position change. With episodes of dizziness she reports severe nausea. Additionally she is having pain to her left shoulder and left upper arm. She states that yesterday she was having a sore throat and some right ear discomfort, which have both resolved, in addition to frontal head pressure which still persists. She reports that she took an at-home COVID- 19 test which was negative. Denies any known COVID-19 exposure. denies fevers, chills, recent head injury, vision changes, syncope/ near-syncope, chest pain, palpitations, shortness of breath, dyspnea on exertion, nausea, vomiting, abdominal pain, pedal edema. <Yahairaeden Medina CNP - Last Filed: 05/10/21 18:03> MD elicited complaint: dizziness <Yahaira RasmussenHARVINDER fuentes - Last Filed: 05/10/21 18:03> Related Data Home Medications: Previous Rx's Medication Instructions Recorded cephalexin 500 mg capsule 500 mg PO QID #20 cap 06/07/20 levofloxacin 500 mg tablet 500 mg PO DAILY #14 tab 06/21/20 phenazopyridine 100 mg tablet 100 mg PO TID PRN 5 Days #14 tab 06/21/20 sulfamethoxazole 800 1 tab PO BID #14 tab 06/21/20 mg-trimethoprim 160 mg tablet (Bactrim DS) meclizine 25 mg chewable tablet 25 mg PO DAILY PRN 7 Days #7 tab 05/10/21 <Yahaira Medina CNP - Last Filed: 05/10/21 18:03> Allergies/Adverse Reactions: Allergies Allergy/AdvReac Type Severity Reaction Status Date / Time levofloxacin [From Levaquin] Allergy Severe THROAT Verified 06/21/20 13:34 CLOSES <Yahaira Medina CNP - Last Filed: 05/10/21 18:03> Review of Systems Review of Systems: Constitutional: No weight loss, fever, chills, weakness or fatigue. HEENT: No visual loss, blurred vision, double vision. No hearing loss, sneezing, congestion, runny nose or sore throat. Skin: No rash or itching. Cardiovascular: No chest pain, chest pressure or chest discomfort. No palpitations or pedal edema. Respiratory: No shortness of breath, cough or sputum production. Gastrointestinal: No anorexia, nausea, vomiting or diarrhea. No abdominal pain or blood in stool. Genitourinary: No burning micturition. No urinary frequency or incontinence. Neurologic: + head pressure, dizziness. No syncope, unilateral weakness, ataxia, numbness or tingling in the extremities. No change in bowel or bladder control. Musculoskeletal: No muscle pain, back pain, joint pain or stiffness. Hematologic: No bleeding or bruising. Lymphatics: No enlarged lymph nodes. Psychiatric:No depression or anxiety. Endocrine: No polyuria or polydipsia. <Yahaira Medina CNP - Last Filed: 05/10/21 18:03> [facility] Past Medical History Attestation statement: The following information was validated with the patient. <Yahaira Medina CNP - Last Filed: 05/10/21 18:03> Source: old records reviewed <Yahaira Medina CNP - Last Filed: 05/10/21 18:03> Medical History: Medical History Hypertension <Yahaira Medina CNP - Last Filed: 05/10/21 18:03> Surgical History: Surgical History Hx of appendectomy Hx of cholecystectomy <Yahaira Medina CNP - Last Filed: 05/10/21 18:03> Social History Social History: Social History Advance Directives: No Advance Directives Information Provided: No <Yahaira Medina CNP - Last Filed: 05/10/21 18:03> Physical Exam Vital Signs: Vital Signs: Last Vital Signs Temp 98.3 F 05/10/21 15:24 Pulse 65 05/10/21 16:00 Resp 18 05/10/21 16:00 BP 179/83 H 05/10/21 16:00 Pulse Ox 99 05/10/21 16:00 BMI result Body Mass Index 40.9 Vital signs have been reviewed and appeared to be correct. Blood pressure elevated 157/83.? Heart rate normal.? Respiration rate normal. Temperature normal.? Oxygen saturation normal. <Yahaira Medina CNP - Last Filed: 05/10/21 18:03> Vital Signs: Last Vital Signs Temp 98.3 F 05/10/21 15:24 Pulse 65 05/10/21 16:00 Resp 18 05/10/21 16:00 BP 179/83 H 05/10/21 16:00 Pulse Ox 99 05/10/21 16:00 BMI result Body Mass Index 40.9 <QUINTON Johnson - Last Filed: 05/10/21 20:35> Appearance: Alert.?Oriented to person, place and time. No acute distress.?Normal affect. Head: Normocephalic, atraumatic. No head, sinus or TMJ tenderness.? Eyes: Sclera white, conjunctiva pink. PERRL, 3 mm bilaterally. Visual mccann full to confrontation, EOMi.?No Nystagmus. Ears: Bilateral ear canals clear, TM visible with good cone of light.? Nose: Nasal mucosa pink and moist with midline septum, nares patent bilaterally.? Mouth/ Throat: Oral mucosa pink and moist without lesions. Pharynx without exudate, tonsils symmetric, no adenopathy.??? Neck: Normal inspection.? Neck supple.??No JVD CVS: Heart sounds normal. Normal heart rate and rhythm.? Pulses normal.?? Respiratory: No respiratory distress.? Lung sounds clear to auscultation bilaterally?? Abdomen: Soft and non-tender. Normoactive bowel sounds. No pulsatile mass.?? Skin: Skin warm and dry.? Normal skin color.? Normal skin turgor.?? Extremities: No lower extremity edema.? Neuro: No focal neurological deficit observed, CN II-XII intact, normal sensory observed, normal coordination observed. Level of consciousness: Appropriate for age. Motor strength: right upper extremity 5 /5, left upper extremity 5 /5, right lower extremity 5 /5, left lower extremity 5 /5.?Speech: Normal, Gait: Normal, Ztzlvd-no-oaug test: Normal, Yvvg-gl-zqcq test: Normal. <Yahaira Medina CNP - Last Filed: 05/10/21 18:03> NIH Stroke Scale Internal: Initial- Upon Arrival <Yahaira Medina CNP - Last Filed: 05/10/21 18:03> Level of Consciousness: Alert <Yahaira Medina CNP - Last Filed: 05/10/21 18:03> Level of Consciousness Questions: Answers both questions correctly <Yahaira Medina CNP - Last Filed: 05/10/21 18:03> Level of Consciousness Commands: Performs both tasks correctly <Yahaira Medina CNP - Last Filed: 05/10/21 18:03> Best Gaze: Normal <Yahaira Medina CNP Last Filed: 05/10/21 18:03> Visual: No visual loss <Yahaira Medina CNP - Last Filed: 05/10/21 18:03> Facial Palsy: Normal <Yahaira Medina CNP - Last Filed: 05/10/21 18:03> Motor Arm (Right): No drift <Yahaira Medina CNP Last Filed: 05/10/21 18:03> Motor Arm (Left): No drift <Yahaira Medina, HEAV[employer] MACHINERY ASSEMBLER - Last Filed: 05/10/21 18:03> Motor Leg (Right): No drift <Yahaira Medina HEAVY MACHINERY ASSEMBLER - Last Filed: 05/10/21 18:03> Motor Leg (Left): No drift <Yahaira Medina HEAVY MACHINERY ASSEMBLER - Last Filed: 05/10/21 18:03> Limb Ataxia: Absent <Yahaira MedinaHARVINDER - Last Filed: 05/10/21 18:03> Sensory: Normal <Yahaira MedinaHARVINDER - Last Filed: 05/10/21 18:03> Best Language: No aphasia <Yahaira Medina HEAVY MACHINERY ASSEMBLER - Last Filed: 05/10/21 18:03> Dysarthia: Normal <Yahaira Medina HEAVY MACHINERY ASSEMBLER - Last Filed: 05/10/21 18:03> Extinction and Inattention: No abnormality <Yahaira Medina HEAVY MACHINERY ASSEMBLER - Last Filed: 05/10/21 18:03> Score: 0 <Yahaira MedinaHARVINDER - Last Filed: 05/10/21 18:03> 0 <QUINTON Johnson - Last Filed: 05/10/21 20:35> Course Course Course Narrative: Patient is a 55 old female presenting for evaluation of dizziness. Prateek-Hallpike maneuver is negative, no nystagmus. Will obtain CBC to evaluate for leukocytosis/ anemia, CMP to evaluate for abnormal electrolytes /abnormal renal function/ abnormal hepatic function, EKG and troponin to evaluate for arrhythmia/ ischemia/ACS, orthostatic vital signs. No recent head trauma. Current NIH score 0, based on history and physical exam unlikely to be ICH /SAH, although cannot completely exclude posterior circulation stroke. <Yahaira Medina HEAVY MACHINERY ASSEMBLER - Last Filed: 05/10/21 18:03> Reevaluation(s) Reevaluation #1: CBC and CMP is unremarkable. Troponin is negative EKG with normal sinus rhythm no acute ischemia. COVID-19 testing negative. No orthostatic hypotension. She reports no improvement in her dizziness after meclizine 25 mg p.o., will order an additional 25 mg p.o. at this time. Will obtain CT of the head without contrast to exclude infarct. <Yahaira Mcmanus HARIVNDER Medina - Last Filed: 05/10/21 18:03> Time: 13:04 <Yahaira Mcmanus HARVINDER Medina - Last Filed: 05/10/21 18:03> Reevaluation #2: CT of the head reveals no acute intracranial mass, infarct or bleed. At this time patient appears well, she is hemodynamically stable, though she reports no improvement in her dizziness. NIH stroke scale remains 0, she has no ataxia, [id number] test is normal heel to alexis test is normal. I discussed with her the option of evaluation for posterior circulation stroke with MRI, she is agreeable to this plan and would like to proceed however she endorses significant claustrophobia, therefore will premedicate with lorazepam IV prior to MRI. We did review that hew symptoms may be consistent with benign paroxysmal positional vertigo, possible vestibular neuritis due to viral illness as she was experiencing sore throat ear pain, headache. <Yahairageovanna Medina CNP - Last Filed: 05/10/21 18:03> Time: 16:00 <Yahaira Mcmanus HARVINDER Medina - Last Filed: 05/10/21 18:03> Reevaluation #3: Patient signed out Sarina ALCANTARA pending MRI brain and disposition. <Yahaira Mariettajaime Medina CNP - Last Filed: 05/10/21 18:03> Time: 18:02 <Yahaira Mcmanus HARVINDER Medina - Last Filed: 05/10/21 18:03> Additional Reevaluation(s): Patient's MRI was read as no acute intracranial process. I discussed these findings with the patient. I recommended the patient follow up with a neurologist, her primary care provider, and a physical therapist. <QUINTON Johnson - Last Filed: 05/10/21 20:35> MDM - Dizziness Medical Records Attestation: I reviewed the patient's medical records. <Yahairageovanna Medina CNP - Last Filed: 05/10/21 18:03> Lab Data Attestation: I reviewed the patient's lab results. <Yahaira Medina CNP - Last Filed: 05/10/21 18:03> Result diagrams: : 05/10/21 10:17 05/10/21 12:14 <Yahaira Medina, HEAV[employer] MACHINERY ASSEMBLER - Last Filed: 05/10/21 18:03> Labs: Lab Results 05/10/21 05/10/21 05/10/21 Range/Units 10:17 10:17 10:17 WBC 7.1 (4.8-10.8) X10*3/uL RBC 4.41 (4.20-5.50) X10*6/uL Hgb 13.6 (12.0-16.0) g/dl Hct 40.4 (37.0-47.0) % MCV 91.6 (80.0-98.0) fL MCH 30.8 (27.0-33.0) pg MCHC 33.7 (31.0-35.0) g/dl RDW 13.3 (11.0-16.0) % Plt Count 339 (160-400) X10*3/uL MPV 10.5 (9.4-12.3) fL Immature Gran % (Auto) 0.1 (0.0-0.4) % Neut % (Auto) 45.6 (45-73) % Lymph % (Auto) 43.5 H (20-40) % [place]ne % (Auto) 8.2 (2-11) % Eos % (Auto) 2.0 (0-4) % Baso % (Auto) 0.6 (0-2) % Lymph # (Auto) 3.1 (1.2-4.9) X10*3/uL [place] # (Auto) 0.6 (0.1-1.2) X10*3/uL Eos # (Auto) 0.1 (0.0-0.4) X10*3/uL Baso # (Auto) 0.0 (0.0-0.2) X10*3/uL Abs Immat Gran (auto) 0.01 (0.00-0.03) X10*3/uL Absolute Neuts (auto) 3.2 (2.0-8.3) x10*3/uL Absolute Nucleated RBC 0.000 (0.0-0.012) X10*3/uL Nucleated RBC % (auto) 0.0 (0.0-0.2) /100WBC Sodium (135-145) mmol/L Potassium (3.3-5.1) mmol/L Chloride (96-108) mmol/L Carbon Dioxide (22-29) mmol/L Anion Gap (12-20) BUN (9-16) mg/dL Creatinine (0.5-1.4) mg/dL Estim Creat Clear Calc Estimated GFR Random Glucose (60-115) mg/dL Calcium (8.4-10.2) mg/dL Magnesium (1.6-2.6) mg/dL Total Bilirubin (0.0-1.0) mg/dL AST (5-31) U/L ALT (0-31) U/L Alkaline Phosphatase (39-117) U/L Troponin I High Sens < 3.5 (<3.5-17.0) ng/L Total Protein (6.5-8.0) g/dL Albumin (3.5-5.0) g/dL COVID-19 (HENRIQUE) Negative (Negative) COVID-19 Clin Com See Note 05/10/21 Range/Units 12:14 WBC (4.8-10.8) X10*3/uL RBC (4.20-5.50) X10*6/uL Hgb (12.0-16.0) g/dl Hct (37.0-47.0) % MCV (80.0-98.0) fL MCH (27.0-33.0) pg MCHC (31.0-35.0) g/dl RDW (11.0-16.0) % Plt Count (160-400) X10*3/uL MPV (9.4-12.3) fL Immature Gran % (Auto) (0.0-0.4) % Neut % (Auto) (45-73) % Lymph % (Auto) (20-40) % [place] % (Auto) (2-11) % Eos % (Auto) (0-4) % Baso % (Auto) (0-2) % Lymph # (Auto) (1.2-4.9) X10*3/uL [place] # (Auto) (0.1-1.2) X10*3/uL Eos # (Auto) (0.0-0.4) X10*3/uL Baso # (Auto) (0.0-0.2) X10*3/uL Abs Immat Gran (auto) (0.00-0.03) X10*3/uL Absolute Neuts (auto) (2.0-8.3) x10*3/uL Absolute Nucleated RBC (0.0-0.012) X10*3/uL Nucleated RBC % (auto) (0.0-0.2) /100WBC Sodium 143 (135-145) mmol/L Potassium 4.2 (3.3-5.1) mmol/L Chloride 106 (96-108) mmol/L Carbon Dioxide 29 (22-29) mmol/L Anion Gap 12 (12-20) BUN 13 (9-16) mg/dL Creatinine 0.75 (0.5-1.4) mg/dL Estim Creat Clear Calc 99.3 Estimated GFR > 60 Random Glucose 98 (60-115) mg/dL Calcium 9.3 D (8.4-10.2) mg/dL Magnesium 1.9 (1.6-2.6) mg/dL Total Bilirubin 0.6 (0.0-1.0) mg/dL AST 17 (5-31) U/L ALT 15 (0-31) U/L Alkaline Phosphatase 63 D (39-117) U/L Troponin I High Sens (<3.5-17.0) ng/L Total Protein 6.3 L (6.5-8.0) g/dL Albumin 3.9 (3.5-5.0) g/dL COVID-19 (HENRIQUE) (Negative) COVID-19 Clin Com <Yahaira Medina CNP - Last Filed: 05/10/21 18:03> Lab Results 05/10/21 05/10/21 05/10/21 Range/Units 10:17 10:17 10:17 WBC 7.1 (4.8-10.8) X10*3/uL RBC 4.41 (4.20-5.50) X10*6/uL Hgb 13.6 (12.0-16.0) g/dl Hct 40.4 (37.0-47.0) % MCV 91.6 (80.0-98.0) fL MCH 30.8 (27.0-33.0) pg MCHC 33.7 (31.0-35.0) g/dl RDW 13.3 (11.0-16.0) % Plt Count 339 (160-400) X10*3/uL MPV 10.5 (9.4-12.3) fL Immature Gran % (Auto) 0.1 (0.0-0.4) % Neut % (Auto) 45.6 (45-73) % Lymph % (Auto) 43.5 H (20-40) % [place]ne % (Auto) 8.2 (2-11) % Eos % (Auto) 2.0 (0-4) % Baso % (Auto) 0.6 (0-2) % Lymph # (Auto) 3.1 (1.2-4.9) X10*3/uL [place]ne # (Auto) 0.6 (0.1-1.2) X10*3/uL Eos # (Auto) 0.1 (0.0-0.4) X10*3/uL Baso # (Auto) 0.0 (0.0-0.2) X10*3/uL Abs Immat Gran (auto) 0.01 (0.00-0.03) X10*3/uL Absolute Neuts (auto) 3.2 (2.0-8.3) x10*3/uL Absolute Nucleated RBC 0.000 (0.0-0.012) X10*3/uL Nucleated RBC % (auto) 0.0 (0.0-0.2) /100WBC Sodium (135-145) mmol/L Potassium (3.3-5.1) mmol/L Chloride (96-108) mmol/L Carbon Dioxide (22-29) mmol/L Anion Gap (12-20) BUN (9-16) mg/dL Creatinine (0.5-1.4) mg/dL Estim Creat Clear Calc Estimated GFR Random Glucose (60-115) mg/dL Calcium (8.4-10.2) mg/dL Magnesium (1.6-2.6) mg/dL Total Bilirubin (0.0-1.0) mg/dL AST (5-31) U/L ALT (0-31) U/L Alkaline Phosphatase (39-117) U/L Troponin I High Sens < 3.5 (<3.5-17.0) ng/L Total Protein (6.5-8.0) g/dL Albumin (3.5-5.0) g/dL COVID-19 (HENRIQUE) Negative (Negative) COVID-19 Clin Com See Note 05/10/21 Range/Units 12:14 WBC (4.8-10.8) X10*3/uL RBC (4.20-5.50) X10*6/uL Hgb (12.0-16.0) g/dl Hct (37.0-47.0) % MCV (80.0-98.0) fL MCH (27.0-33.0) pg MCHC (31.0-35.0) g/dl RDW (11.0-16.0) % Plt Count (160-400) X10*3/uL MPV (9.4-12.3) fL Immature Gran % (Auto) (0.0-0.4) % Neut % (Auto) (45-73) % Lymph % (Auto) (20-40) % Duc[place]ne % (Auto) (2-11) % Eos % (Auto) (0-4) % Baso % (Auto) (0-2) % Lymph # (Auto) (1.2-4.9) X10*3/uL [place] # (Auto) (0.1-1.2) X10*3/uL Eos # (Auto) (0.0-0.4) X10*3/uL Baso # (Auto) (0.0-0.2) X10*3/uL Abs Immat Gran (auto) (0.00-0.03) X10*3/uL Absolute Neuts (auto) (2.0-8.3) x10*3/uL Absolute Nucleated RBC (0.0-0.012) X10*3/uL Nucleated RBC % (auto) (0.0-0.2) /100WBC Sodium 143 (135-145) mmol/L Potassium 4.2 (3.3-5.1) mmol/L Chloride 106 (96-108) mmol/L Carbon Dioxide 29 (22-29) mmol/L Anion Gap 12 (12-20) BUN 13 (9-16) mg/dL Creatinine 0.75 (0.5-1.4) mg/dL Estim Creat Clear Calc 99.3 Estimated GFR > 60 Random Glucose 98 (60-115) mg/dL Calcium 9.3 D (8.4-10.2) mg/dL Magnesium 1.9 (1.6-2.6) mg/dL Total Bilirubin 0.6 (0.0-1.0) mg/dL AST 17 (5-31) U/L ALT 15 (0-31) U/L Alkaline Phosphatase 63 D (39-117) U/L Troponin I High Sens (<3.5-17.0) ng/L Total Protein 6.3 L (6.5-8.0) g/dL Albumin 3.9 (3.5-5.0) g/dL COVID-19 (HENRIQUE) (Negative) COVID-19 Clin Com <QUINTON Johnson - Last Filed: 05/10/21 20:35> Imaging Data CT scan - head: Radiologist's impression: IMPRESSION: No CT evidence of acute intracranial mass, infarct or bleed, no explanation for patient's symptoms. ? Normal CT scan does not rule out the possibility of hyperacute infarct in the first 12 hours. If patient symptoms persist may consider correlation with MRI, which is more sensitive for early acute infarct. <Yahaira Medina CNP - Last Filed: 05/10/21 18:03> ECG Data Attestation: I personally reviewed and interpreted this ECG as follows: <Yahaira Medina CNP - Last Filed: 05/10/21 18:03> ECG interpretation date: 05/10/21 <Yahaira Medina CNP - Last Filed: 05/10/21 18:03> ECG interpretation time: 10:00 <Yahaira Medina CNP - Last Filed: 05/10/21 18:03> Prior ECG tracings: available for review <Yahaira Medina CNP - Last Filed: 05/10/21 18:03> Interpretation: Rate: 69 Rhythm:? normal sinus rhythm Normal P waves.? Normal DINAH.?? Normal QRS complex.?? ST T wave :?? no ST elevation, no ST depression, T-wave inversion in III qTC: 445 prior studies:? June 2020 similar on comparison The study has been interpreted contemporaneously by me. <Yahaira Medina CNP - Last Filed: 05/10/21 18:03> Discharge Plan Discharge Clinical Impression: Dizziness, Benign paroxysmal positional vertigo <Yahaira Medina CNP - Last Filed: 05/10/21 18:03> Patient Disposition: Home, Self-Care <Yahaira Medina CNP - Last Filed: 05/10/21 18:03> Instructions: Benign Paroxysmal Positional Vertigo (ED), Dizziness (ED) <Yahaira Medina CNP - Last Filed: 05/10/21 18:03> Additional Instructions: Follow up with your primary care provider, neurologist, and physical therapist. Return to the emergency department immediately if your symptoms worsen or if you develop any dizziness, shortness of breath, difficulty breathing, chest pain, blurry vision, loss of vision, nausea, vomiting, abdominal pain, fever, chills, back pain, or any other complaints. <Yahaira Medina CNP - Last Filed: 05/10/21 18:03> Prescriptions: New meclizine 25 mg tablet,chewable 25 mg PO DAILY PRN (Reason: dizziness) 7 Days Qty: 7 0RF No Action cephalexin 500 mg capsule 500 mg PO QID Qty: 20 0RF levofloxacin 500 mg tablet 500 mg PO DAILY Qty: 14 0RF phenazopyridine 100 mg tablet 100 mg PO TID PRN (Reason: pain) 5 Days Qty: 14 0RF sulfamethoxazole-trimethoprim [Bactrim DS] 800-160 mg tablet 1 tab PO BID Qty: 14 0RF <Yahaira Medina CNP - Last Filed: 05/10/21 18:03> Referrals: Catrina Freeman MD [Physician] - 2 days <Yahaira Medina CNP - Last Filed: 05/10/21 18:03> Print Language: Irish <Yahaira Medina CNP - Last Filed: 05/10/21 18:03>
[2021-05-10] MEDS: 0.9 % Sodium Chloride 1,000 ML 999 ML IV (10:20)
[2021-05-10 10:25] LABS: MANUAL DIFF FLAG NO
[2021-05-10 10:26] LABS: Basophils Percent Auto 0.6 % (0-2); Eosinophils Absolute Auto 0.1 X10*3/uL (0.0-0.4); Hematocrit 40.4 % (37.0-47.0); Hemoglobin 13.6 g/dl (12.0-16.0); Imm Gran Abs Auto 0.01 X10*3/uL (0.00-0.03); Imm Gran Pct Auto 0.1 % (0.0-0.4); Lymphocytes Absolute Auto 3.1 X10*3/uL (1.2-4.9); Lymphocytes Percent Auto 43.5 % (20-40); Mean Corpuscular HGB Conc 33.7 g/dl (31.0-35.0); Mean Corpuscular Hemoglobin 30.8 pg (27.0-33.0); Mean Corpuscular Volume 91.6 fL (80.0-98.0); Mean Platelet Volume 10.5 fL (9.4-12.3); Monocytes Absolute Auto 0.6 X10*3/uL (0.1-1.2); Monocytes Percent Auto 8.2 % (2-11); Neutrophils Absolute Auto 3.2 x10*3/uL (2.0-8.3); Neutrophils Percent Auto 45.6 % (45-73); Platelet Count 339 X10*3/uL (160-400); Red Blood Count 4.41 X10*6/uL (4.20-5.50); Red Cell Distribution Width 13.3 % (11.0-16.0); White Blood Count 7.1 X10*3/uL (4.8-10.8)
[2021-05-10] MEDS: Meclizine HCl 25 MG TABLET PO ×2 (10:38→14:45)
[2021-05-10 10:41] LABS: COVID-19 Test Negative (Negative); IDNOW Serial# 9DD0AD1C
[2021-05-10 10:46] LABS: Troponin-I High Sensitivity < 3.5 ng/L (<3.5-17.0)
[2021-05-10 12:46] LABS: Alanine Aminotransferase 15 U/L (0-31); Albumin Level 3.9 g/dL (3.5-5.0); Alkaline Phosphatase 63 U/L (39-117); Anion Gap 12 (12-20); Aspartate Amino Transferase 17 U/L (5-31); Bilirubin Total 0.6 mg/dL (0.0-1.0); Blood Urea Nitrogen 13 mg/dL (9-16); Calcium 9.3 mg/dL (8.4-10.2); Carbon Dioxide 29 mmol/L (22-29); Chloride 106 mmol/L (96-108); Creatinine Clr Calc Pharmacy 99.3; Estimated Glomerular Filt Rate > 60; Glucose Random 98 mg/dL (60-115); Magnesium 1.9 mg/dL (1.6-2.6); Potassium 4.2 mmol/L (3.3-5.1); Sodium 143 mmol/L (135-145); Total Protein 6.3 g/dL (6.5-8.0)
--- NOTE | 2021-05-10 15:54 | MHC.STROKE ---
I MET WITH PATIENT BASED ON HER PRESENTING SYMPTOMS: SUDDEN ONSET DIZZINESS, MENDOZA, HTN, NAUSEA. SHE GOT UP AT 0430 FOR WORK, WHILE AT WORK AROUND 0700 SHE HAD A SUDDEN EPISODE OF SEVERE DIZZINESS WITH NAUSEA. SHE DID NOT WANT HER CO-WORKER TO KNOW SO SHE DID NOT CALL AN AMBULANCE. SHE PASSED HER SWALLOW SCREEN PRIOR TO PO MECLIZINE. SHE WAS ABLE TO SIT ON THE EDGE OF THE BED HERSELF, SHE WALKED 100FT IN THE HALLWAY INDEPENDENTLY WITH ME BY HER SIDE. NO C/O DIZZINESS. SHE IS C/O THROAT PAIN, MENDOZA, NO FURTHER NAUSEA. SHE SAID THAT SHE'S NOT SURE IF THIS HAS HAPPENED BEFORE BUT IT MIGHT HAVE. SHE SAID SHE HAD TWO STROKES IN THE PAST 2012 AND 2013 FROM HTN AND SHE WENT TO [facility]. SHE SAID SHE CANNOT TOLERATE AN MRI DUE TO EXTREME CLAUSTROPHOBIA, SHE WOULD HAVE TO BE HIGHLY MEDICATED IF SHE WAS GOING TO TOLERATE THE MRI. I DID REPORT ALL THIS TO THE COMMERCIAL LITIGATION ATTORNEY NICHOLE. I HAVE CONTACTED THE BORING MILL OPERATOR FOR METAL AT [facility] TO SEE IF SHE CAN VERIFY THIS. HER CT HEAD DID NOT REVEAL ANY PRIOR STROKES.
[2021-05-10] MEDS: Acetaminophen 325 MG TABLET 975 MG PO (16:38)
[2021-05-10] MEDS: LORazepam 2 MG/ML VIAL IVPUSH (17:38)
--- NOTE | 2021-05-10 19:20 | PC.NURSE ---
Assumed care of pt at 1900. Pt sleeping, even and non-labored resps. Dispo pending MRI result
== END 2021-05-10 20:42 | disposition home or self-care (01) ==
PROVIDERS: Nurse Practitioner Family; Emergency Provider Emergency Medicine; PCP Internal Medicine
DX: H81.10 Benign paroxysmal vertigo, unspecified ear (principal); Z20.822 Contact with and (suspected) exposure to COVID-19; I10 Essential (primary) hypertension; Z86.73 Personal history of transient ischemic attack (TIA), and cerebral infarction without residual deficits
CPT/HCPCS: 70450; 70551; 80053; 83735; 84484; 85025; 87635; 93005; 96361; 96374; 99285; J2060

== ENCOUNTER 2021-07-01 12:13 | Observation (INO) | payer BC, SELFPAY ==
--- NOTE | ~2021-07-01 | CT_ITS ---
CT ANGIOGRAM NECK WITH CONTRAST CT ANGIOGRAM BRAIN WITH CONTRAST CLINICAL INFORMATION: Left-sided face, arm, and leg numbness. COMPARISON: CT head 07/01/2021 and brain MRI 05/10/2021. TECHNIQUE: Test bolus sequences followed by intravenous administration 75 mL of Omnipaque 350. Helical imaging was performed in the axial plane from the thoracic inlet to the skull vertex. Delayed postcontrast imaging of the head was also performed. The data was processed at the pharmacy technologist workstation for generation of MIP sequences. Angled MIPs and volume rendered reformatted images were also generated at an offline 3D workstation under concurrent supervision. Stenoses are assessed in accordance with NASCET criteria unless otherwise indicated. This CT examination was performed using dose optimization techniques as appropriate, variously including the following: *Automated exposure control *Adjustment of mA and/or kV according to patient size (this includes techniques or standardized protocols for targeted exams where dose is matched to indication/reason for exam; i.e. extremities or head) *Use of iterative reconstruction technique FINDINGS: BRAIN: [There is no intracranial hemorrhage, hydrocephalus, extra-axial surface collection, midline shift, or other herniation pattern. Garza to white matter differentiation is diffusely maintained without evidence of an evolved acute territorial infarct. The basilar cisterns are preserved. No significant soft tissue abnormality. No acute osseous abnormality. The paranasal sinuses and the mastoid air cells are well aerated.] CERVICAL SOFT TISSUES AND LUNG APICES: [Unremarkable. ] NECK CTA: [There is a classic 3 vessel configuration of the aortic arch. Proximal arch vessels are non-stenotic. Left vertebral artery is dominant. No significant ostial stenosis is visualized on either side. Both vertebral arteries are widely patent throughout their extracranial cervical course. Both common carotid arteries are normal in course and caliber.] Retropharyngeal course of the cervical internal carotid arteries bilaterally. BRAIN CTA: [There is normal opacification of major intracranial arteries. No focal flow-limiting stenosis nor discrete proximal large artery occlusion. No aneurysm. Timing of the contrast bolus allows assessment of the major dural venous sinuses, which all opacify normally] CT/CT angio head neck stroke IMPRESSION: - No acute intracranial findings. No acute territorial infarcts. - No significant arterial stenoses in no acute arterial occlusions within the head or neck. Covering provider paged with these findings at 1:30 PM on 07/01/2021.
--- NOTE | ~2021-07-01 | CT_ITS ---
CT HEAD WITHOUT IV CONTRAST CLINICAL INFORMATION: Stroke symptoms. Left-sided face, arm, and leg numbness. COMPARISON: Head CT and MRI brain 05/10/2021. TECHNIQUE: Multidetector CT acquisitions of the head was obtained without IV contrast. This CT examination was performed using dose optimization techniques as appropriate, variously including the following: *Automated exposure control *Adjustment of mA and/or kV according to patient size (this includes techniques or standardized protocols for targeted exams where dose is matched to indication/reason for exam; i.e. extremities or head) *Use of iterative reconstruction technique FINDINGS: There is no intracranial hemorrhage, hydrocephalus, extra-axial surface collection, midline shift, or other herniation pattern. Garza to white matter differentiation is diffusely maintained without evidence of an evolved acute territorial infarct. The basilar cisterns are preserved. No significant soft tissue abnormality. No acute osseous abnormality. The paranasal sinuses and the mastoid air cells are well aerated. CT/CT head for stroke IMPRESSION: No acute intracranial abnormality. Stroke protocol CTA discussed with Dr. Tran at 1:08 PM on 07/01/2021.
[2021-07-01 12:22] VITALS: BP 169/103; PULSE 86; RESP 16; TEMP 37; O2SAT 100; BMI 42.8
--- NOTE | 2021-07-01 12:46 | ECG_ITS ---
Test Reason : ?STROKE Blood Pressure : / mmHG Vent. Rate : 085 BPM Atrial Rate : 085 BPM P-R Int : 188 ms QRS Dur : 110 ms QT Int : 404 ms P-R-T Axes : 055 012 021 degrees QTc Int : 480 ms Normal sinus rhythm with sinus arrhythmia Minimal voltage criteria for LVH, may be normal variant ( Charan product ) Prolonged QT Abnormal ECG When compared with ECG of 10-MAY-2021 09:36, No significant change was found Referred By: Digna Tran Electronically Signed By:LAKSHMI MELCHOR MD
--- NOTE | 2021-07-01 12:47 | ED.NEUROSD ---
HPI - Neuro Symptoms/Deficit General Chief Complaint: Dizziness Stated Complaint: L side numbness/Dizzy Time Seen by Provider: 07/01/21 12:29 Source: patient Mode of arrival: ambulatory Limitations: no limitations History of Present Illness HPI Narrative: Patient comes to the emergency room complaining of left facial numbness and tingling, including the tongue. Also, numbness and tingling in the left arm and left leg numb neuro deficits. Patient states that she has no headache, no other neurological deficits. Patient has had 2 TIAs in the past. At this time, patient is not on blood thinners. Patient used to take blood thinners in 2014 after her 2nd TIA. Patient denies chest pain, no shortness of breath. Related Data Home Medications Medication Instructions Recorded Confirmed atorvastatin 20 mg tablet 1 tab PO DAILY 07/01/21 07/01/21 bupropion HCl 100 mg tablet,12 hr 1 tab PO BID 07/01/21 07/01/21 sustained-release hydrochlorothiazide 25 mg tablet 1 tab PO DAILY 07/01/21 07/01/21 valsartan 320 mg tablet 1 tab PO DAILY 07/01/21 07/01/21 Allergies Allergy/AdvReac Type Severity Reaction Status Date / Time levofloxacin [From Levaquin] Allergy Severe THROAT Verified 06/21/20 13:34 CLOSES Review of Systems Review of Systems: Constitutional : No Weight loss, No Fever, No Chills, No Night Sweats, No Fatigue, No Malaise ENT/Mouth : No Hearing loss, No Ear Pain, No Nasal Congestion, No Sinus Pain, No Hoarseness, No sore throat, No Rhinorrhea, No Swallowing Difficulty Eyes: No Eye Pain, No Swelling, No Redness, No Foreign Body, No Discharge, No Vision Changes Cardiovascular : No Chest Pain, No SOB, No Dyspnea on Exertion, No Orthopnea, No Edema, No Palpitations Respiratory : No Cough, No Sputum, No Wheezing, No Smoke Exposure, No Dyspnea Gastrointestinal : No Nausea, No Vomiting, No Diarrhea, No Constipation, No abdominal Pain, No Hematochezia, No Melena Genitourinary : no irregular bleeding, No Dysuria, No Urinary Frequency, No Hematuria, No Urinary Incontinence, No Urgency, No Flank Pain, No Urinary Flow Changes, No Hesitancy Musculoskeletal : No joint pain, No Myalgias, No Joint Swelling Skin : No Skin Lesions, No rash Neuro : No Weakness, complaining of numbness in the left side of the face and left side of the tongue, slight slurred speech due to the numbness in the tongue, left arm and left leg feel numb/tingly but no motor deficits. Psych : No Anxiety/Panic, No Depression, No SI/HI/AH/VH, No Social Issues, Heme/Lymph: No Bruising, No Bleeding,No Lymphadenopathy Endocrine : No Polyuria, No Polydipsia, No Temperature Intolerance [facility] Past Medical History Medical History (Updated 07/01/21 @ 13:26 by Digna Tran MD) Hypertension TIA (transient ischemic attack) Surgical History Hx of appendectomy Hx of cholecystectomy Social History Social History Alcohol intake: never Patient Tobacco Use Status: Never used Tobacco Use of substances other than those prescribed or required for medical reasons: No Advance Directives: No Advance Directives Information Provided: No Physical Exam Vital Signs: Vital Signs: Last Vital Signs Temp 98.2 F 07/01/21 13:17 Pulse 82 07/01/21 13:17 Resp 19 07/01/21 13:17 BP 187/98 H 07/01/21 13:17 Pulse Ox 99 07/01/21 13:17 BMI result Body Mass Index 42.8 Const: Other: Appearance: Alert. Oriented X3. No acute distress. Eyes: Pupils equal, round and reactive to light. ENT: Pharynx normal. Neck: Normal inspection. Neck supple. No lymph nodes noted. No crepitus CVS: Normal heart rate and rhythm. Pulses normal. Normal S1 and S2 Respiratory: No respiratory distress. Breath sounds normal. No Wheezing. No rales Abdomen: Soft and nontender. No rigidity. No distention. Skin: Skin warm and dry. Normal skin color. Normal skin turgor. Extremities: No lower extremity edema. No Lacerations. No Rash Neuro: Oriented X 3. No motor deficit. Slight slurred speech but fairly well understandable. Patient has no pronator drift, 5/5 strength in upper and lower extremities bilaterally, no drooping of the mouth Psych: calm, cooperative, normal affect Course Course Course Narrative: Head CT without contrast within normal limits, no acute pathology. CTA pending. I discussed the patient with Dr. Freeman, at this time tPA is not recommended CTA negative for vessel occlusion Patient is still symptomatic, still having numbness and tingling, no neurological deficits. Patient being admitted MDM - Neuro Symptoms/Deficit Lab Data Result diagrams: 07/01/21 12:53 07/01/21 12:53 Labs: Lab Results 07/01/21 07/01/21 07/01/21 Range/Units 12:53 12:53 12:53 WBC 8.4 (4.8-10.8) X10*3/uL RBC 4.28 (4.20-5.50) X10*6/uL Hgb 13.1 (12.0-16.0) g/dl Hct 39.6 (37.0-47.0) % MCV 92.5 (80.0-98.0) fL MCH 30.6 (27.0-33.0) pg MCHC 33.1 (31.0-35.0) g/dl RDW 13.2 (11.0-16.0) % Plt Count 327 (160-400) X10*3/uL MPV 10.3 (9.4-12.3) fL Immature Gran % (Auto) 0.2 (0.0-0.4) % Neut % (Auto) 41.1 L (45-73) % Lymph % (Auto) 48.4 H (20-40) % [place] % (Auto) 8.6 (2-11) % Eos % (Auto) 1.5 (0-4) % Baso % (Auto) 0.2 (0-2) % Lymph # (Auto) 4.1 (1.2-4.9) X10*3/uL [place] # (Auto) 0.7 (0.1-1.2) X10*3/uL Eos # (Auto) 0.1 (0.0-0.4) X10*3/uL Baso # (Auto) 0.0 (0.0-0.2) X10*3/uL Abs Immat Gran (auto) 0.02 (0.00-0.03) X10*3/uL Absolute Neuts (auto) 3.5 (2.0-8.3) x10*3/uL Absolute Nucleated RBC 0.000 (0.0-0.012) X10*3/uL Nucleated RBC % (auto) 0.0 (0.0-0.2) /100WBC Whole Blood PT (11.1-13.5) sec Whole Blood INR (0.9-1.1) Sodium 140 (135-145) mmol/L Potassium 4.3 (3.3-5.1) mmol/L Chloride 105 (96-108) mmol/L Carbon Dioxide 28 (22-29) mmol/L Anion Gap 11 L (12-20) BUN 21 H D (9-16) mg/dL Creatinine 0.76 (0.5-1.4) mg/dL Estim Creat Clear Calc 99.5 Estimated GFR > 60 POC Glucose (60-115) mg/dL Random Glucose 96 (60-115) mg/dL Calcium 9.9 D (8.4-10.2) mg/dL Magnesium 2.1 (1.6-2.6) mg/dL Total Bilirubin 0.5 (0.0-1.0) mg/dL Direct Bilirubin 0.2 (0.0-0.5) mg/dL AST 17 (5-31) U/L ALT 18 (0-31) U/L Alkaline Phosphatase 60 (39-117) U/L Troponin I High Sens < 3.5 (<3.5-17.0) ng/L Total Protein 6.6 (6.5-8.0) g/dL Albumin 4.1 (3.5-5.0) g/dL Urine Color Urine Appearance Urine pH (5.0-8.0) Ur Specific [place] (1.005-1.025) Urine Protein (NEG-TRACE) MG/DL Urine Glucose (UA) (NEG) MG/DL Urine Ketones (NEG) MG/DL Urine Blood (NEG) Urine Nitrite (NEG) Ur Leukocyte Esterase (NEG) Ethyl Alcohol mg/dL COVID-19 ([facility]) (Negative) COVID-19 Clin Com 07/01/21 07/01/21 07/01/21 Range/Units 12:53 12:53 13:19 WBC (4.8-10.8) X10*3/uL RBC (4.20-5.50) X10*6/uL Hgb (12.0-16.0) g/dl Hct (37.0-47.0) % MCV (80.0-98.0) fL MCH (27.0-33.0) pg MCHC (31.0-35.0) g/dl RDW (11.0-16.0) % Plt Count (160-400) X10*3/uL MPV (9.4-12.3) fL Immature Gran % (Auto) (0.0-0.4) % Neut % (Auto) (45-73) % Lymph % (Auto) (20-40) % [place] % (Auto) (2-11) % Eos % (Auto) (0-4) % Baso % (Auto) (0-2) % Lymph # (Auto) (1.2-4.9) X10*3/uL [place] # (Auto) (0.1-1.2) X10*3/uL Eos # (Auto) (0.0-0.4) X10*3/uL Baso # (Auto) (0.0-0.2) X10*3/uL Abs Immat Gran (auto) (0.00-0.03) X10*3/uL Absolute Neuts (auto) (2.0-8.3) x10*3/uL Absolute Nucleated RBC (0.0-0.012) X10*3/uL Nucleated RBC % (auto) (0.0-0.2) /100WBC Whole Blood PT 11.3 (11.1-13.5) sec Whole Blood INR 0.9 (0.9-1.1) Sodium (135-145) mmol/L Potassium (3.3-5.1) mmol/L Chloride (96-108) mmol/L Carbon Dioxide (22-29) mmol/L Anion Gap (12-20) BUN (9-16) mg/dL Creatinine (0.5-1.4) mg/dL Estim Creat Clear Calc Estimated GFR POC Glucose (60-115) mg/dL Random Glucose (60-115) mg/dL Calcium (8.4-10.2) mg/dL Magnesium (1.6-2.6) mg/dL Total Bilirubin (0.0-1.0) mg/dL Direct Bilirubin (0.0-0.5) mg/dL AST (5-31) U/L ALT (0-31) U/L Alkaline Phosphatase (39-117) U/L Troponin I High Sens (<3.5-17.0) ng/L Total Protein (6.5-8.0) g/dL Albumin (3.5-5.0) g/dL Urine Color Urine Appearance Urine pH (5.0-8.0) Ur Specific [place] (1.005-1.025) Urine Protein (NEG-TRACE) MG/DL Urine Glucose (UA) (NEG) MG/DL Urine Ketones (NEG) MG/DL Urine Blood (NEG) Urine Nitrite (NEG) Ur Leukocyte Esterase (NEG) Ethyl Alcohol < 10 mg/dL COVID-19 ([facility]) Negative (Negative) COVID-19 Clin Com See Note 07/01/21 07/01/21 Range/Units 13:20 13:26 WBC (4.8-10.8) X10*3/uL RBC (4.20-5.50) X10*6/uL Hgb (12.0-16.0) g/dl Hct (37.0-47.0) % MCV (80.0-98.0) fL MCH (27.0-33.0) pg MCHC (31.0-35.0) g/dl RDW (11.0-16.0) % Plt Count (160-400) X10*3/uL MPV (9.4-12.3) fL Immature Gran % (Auto) (0.0-0.4) % Neut % (Auto) (45-73) % Lymph % (Auto) (20-40) % [place] % (Auto) (2-11) % Eos % (Auto) (0-4) % Baso % (Auto) (0-2) % Lymph # (Auto) (1.2-4.9) X10*3/uL [place] # (Auto) (0.1-1.2) X10*3/uL Eos # (Auto) (0.0-0.4) X10*3/uL Baso # (Auto) (0.0-0.2) X10*3/uL Abs Immat Gran (auto) (0.00-0.03) X10*3/uL Absolute Neuts (auto) (2.0-8.3) x10*3/uL Absolute Nucleated RBC (0.0-0.012) X10*3/uL Nucleated RBC % (auto) (0.0-0.2) /100WBC Whole Blood PT (11.1-13.5) sec Whole Blood INR (0.9-1.1) Sodium (135-145) mmol/L Potassium (3.3-5.1) mmol/L Chloride (96-108) mmol/L Carbon Dioxide (22-29) mmol/L Anion Gap (12-20) BUN (9-16) mg/dL Creatinine (0.5-1.4) mg/dL Estim Creat Clear Calc Estimated GFR POC Glucose 81 (60-115) mg/dL Random Glucose (60-115) mg/dL Calcium (8.4-10.2) mg/dL Magnesium (1.6-2.6) mg/dL Total Bilirubin (0.0-1.0) mg/dL Direct Bilirubin (0.0-0.5) mg/dL AST (5-31) U/L ALT (0-31) U/L Alkaline Phosphatase (39-117) U/L Troponin I High Sens (<3.5-17.0) ng/L Total Protein (6.5-8.0) g/dL Albumin (3.5-5.0) g/dL Urine Color YELLOW Urine Appearance CLEAR Urine pH 5.5 (5.0-8.0) Ur Specific [place] <= 1.005 (1.005-1.025) Urine Protein NEG (NEG-TRACE) MG/DL Urine Glucose (UA) NEG (NEG) MG/DL Urine Ketones NEG (NEG) MG/DL Urine Blood NEG (NEG) Urine Nitrite NEG (NEG) Ur Leukocyte Esterase NEG (NEG) Ethyl Alcohol mg/dL COVID-19 ([facility]) (Negative) COVID-19 Clin Com Imaging Data CT scan - head: Radiologist's impression: There is no intracranial hemorrhage, hydrocephalus, extra-axial surface collection, midline shift, or other herniation pattern. [place] to white matter differentiation is diffusely maintained without evidence of an evolved acute territorial infarct. The basilar cisterns are preserved. No significant soft tissue abnormality. No acute osseous abnormality. The paranasal sinuses and the mastoid air cells are well aerated. CT/CT head for stroke IMPRESSION: No acute intracranial abnormality. Head CT and CTA: Radiologist's impression: NECK CTA: [There is a classic 3 vessel configuration of the aortic arch. Proximal arch vessels are non-stenotic. Left vertebral artery is dominant. No significant ostial stenosis is visualized on either side. Both vertebral arteries are widely patent throughout their extracranial cervical course. Both common carotid arteries are normal in course and caliber.] Retropharyngeal course of the cervical internal carotid arteries bilaterally. BRAIN CTA: [There is normal opacification of major intracranial arteries. No focal flow-limiting stenosis nor discrete proximal large artery occlusion. No aneurysm. Timing of the contrast bolus allows assessment of the major dural venous sinuses, which all opacify normally] CT/CT angio head? neck stroke IMPRESSION: - No acute intracranial findings. No acute territorial infarcts. ? - No significant arterial stenoses in no acute arterial occlusions within the head or neck. ? Covering provider paged with these findings at 1:30 PM on 07/01/2021. NIH Stroke Scale Level of Consciousness: Alert Level of Consciousness Questions: Answers both questions correctly Level of Consciousness Commands: Performs both tasks correctly Best Gaze: Normal Visual: No visual loss Facial Palsy: Normal Motor Arm (Right): No drift Motor Arm (Left): No drift Motor Leg (Right): No drift Motor Leg (Left): No drift Limb Ataxia: Absent Sensory: Normal Best Language: No aphasia Dysarthia: Mild to moderate dysarthria Extinction and Inattention: No abnormality Score: 1 Discharge Plan Discharge Clinical Impression: TIA (transient ischemic attack) Patient Disposition: Admitted As Inpatient
[2021-07-01 12:57] LABS: MANUAL DIFF FLAG NO
[2021-07-01 13:03] LABS: Basophils Percent Auto 0.2 % (0-2); Eosinophils Absolute Auto 0.1 X10*3/uL (0.0-0.4); Eosinophils Percent Auto 1.5 % (0-4); Hematocrit 39.6 % (37.0-47.0); Hemoglobin 13.1 g/dl (12.0-16.0); Imm Gran Abs Auto 0.02 X10*3/uL (0.00-0.03); Imm Gran Pct Auto 0.2 % (0.0-0.4); Lymphocytes Absolute Auto 4.1 X10*3/uL (1.2-4.9); Lymphocytes Percent Auto 48.4 % (20-40); Mean Corpuscular HGB Conc 33.1 g/dl (31.0-35.0); Mean Corpuscular Hemoglobin 30.6 pg (27.0-33.0); Mean Corpuscular Volume 92.5 fL (80.0-98.0); Mean Platelet Volume 10.3 fL (9.4-12.3); Monocytes Absolute Auto 0.7 X10*3/uL (0.1-1.2); Monocytes Percent Auto 8.6 % (2-11); Neutrophils Absolute Auto 3.5 x10*3/uL (2.0-8.3); Neutrophils Percent Auto 41.1 % (45-73); Platelet Count 327 X10*3/uL (160-400); Red Blood Count 4.28 X10*6/uL (4.20-5.50); Red Cell Distribution Width 13.2 % (11.0-16.0); White Blood Count 8.4 X10*3/uL (4.8-10.8)
--- NOTE | 2021-07-01 13:04 | PC.NURSE ---
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
[2021-07-01] MEDS: iohexoL 350 MG/ML 100 ML INFUS..BTL IV (13:12)
[2021-07-01 13:14] LABS: Ethanol < 10 mg/dL
[2021-07-01 13:16] LABS: COVID-19 Test Negative (Negative); IDNOW Serial# 55D5AD1C
[2021-07-01 13:17] VITALS: BP 187/98; PULSE 82; RESP 19; TEMP 36.8; O2SAT 99
[2021-07-01 13:17] LABS: Alanine Aminotransferase 18 U/L (0-31); Albumin Level 4.1 g/dL (3.5-5.0); Alkaline Phosphatase 60 U/L (39-117); Anion Gap 11 (12-20); Aspartate Amino Transferase 17 U/L (5-31); Bilirubin Direct 0.2 mg/dL (0.0-0.5); Bilirubin Total 0.5 mg/dL (0.0-1.0); Blood Urea Nitrogen 21 mg/dL (9-16); Calcium 9.9 mg/dL (8.4-10.2); Carbon Dioxide 28 mmol/L (22-29); Chloride 105 mmol/L (96-108); Creatinine Clr Calc Pharmacy 99.5; Estimated Glomerular Filt Rate > 60; Glucose Random 96 mg/dL (60-115); Magnesium 2.1 mg/dL (1.6-2.6); Potassium 4.3 mmol/L (3.3-5.1); Sodium 140 mmol/L (135-145); Total Protein 6.6 g/dL (6.5-8.0)
[2021-07-01 13:20] LABS: Troponin-I High Sensitivity < 3.5 ng/L (<3.5-17.0)
[2021-07-01 13:35] LABS: Prothrombin Time Whole Bld POC 11.3 sec (11.1-13.5); ~PT, ~INR - Anti Coag Clinic 0.9 (0.9-1.1)
[2021-07-01 13:35] LABS: Glucose, Whole Blood 81 mg/dL (60-115)
[2021-07-01 13:37] LABS: Appearance Urine CLEAR; Color Urine YELLOW; Glucose Urine UA NEG (NEG); Leukocyte Esterase Urine NEG (NEG); Nitrite Urine NEG (NEG); PH 5.5 (5.0-8.0); Specific Gravity - Urine <= 1.005 (1.005-1.025); Urine Blood NEG (NEG); Urine Ketones NEG (NEG); Urine Protein NEG (NEG-TRACE)
--- NOTE | 2021-07-01 13:47 | PHA.MEDREC ---
Pharmacy Consult ? Medication Reconciliation Pharmacy has completed the medication reconciliation.
[2021-07-01 14:03] LABS: Amphetamine Screen Urine Not Detected (Not Detect); Barbiturates, Urine Not Detected (Not Detect); Benzodiazepines Screen Urine Not Detected (Not Detect); Cannabinoid Screen Urine Not Detected (Not Detect); Cocaine Screen Urine Not Detected (Not Detect); Fentanyl, urine Not Detected (Not Detect); Opiate Screen Urine POSITIVE (Not Detect); Phencyclidine Screen Urine Not Detected (Not Detect)
[2021-07-01] MEDS: Aspirin Enteric Coated 325 MG TABLET.DR PO (14:09)
[2021-07-01 15:31] VITALS: BP 165/97; PULSE 70; RESP 16; TEMP 36.7; O2SAT 98
--- NOTE | 2021-07-01 15:38 | P.HPHOSP_ITS ---
History of Present Illness Date of Service: 07/01/21 Chief Complaint: numbness a 56 years old lady with PMH of obesity, HTN and TIA who presents to the hospital complaining of tongue heaviness and numbness on the left side of her body. The patient report that she woke up normally with no complaints this morning but when she was walking she started feeling tongue heaviness associated with and stent feeling of weakness and lightheadedness associated with numbness of the left upper and lower extremities partially known the whole limp. Her symptoms still improving at the time of presentation which has been almost 3 hours after the incident. She reports having similar episodes starting from 2012 that was diagnosed as TIAs and she has been taking statin baby aspirin for that. Her blood pressure is fairly controlled at home. In the emergency she was evaluated by CT head and CTA which both were negative for any acute findings. Admitted for further evaluation and treatment. Review of Systems Review of Systems: No fever, chills But felt mild dizziness and generalized weakness No chest pain, palpitation No shortness of breath or coughing No abdominal pain, nausea or vomiting No urinary symptoms No any rash or wounds tongue heaviness and numbness in left upper and lower extremities [facility] Medical History (Updated 07/01/21 @ 15:42 by Brittani Cohn MD) Hypertension TIA (transient ischemic attack) Surgical History Hx of appendectomy Hx of cholecystectomy Social History Alcohol intake: never Patient Tobacco Use Status: Never used Tobacco Use of substances other than those prescribed or required for medical reasons: No Advance Directives: No Advance Directives Information Provided: No Meds Allergies Allergy/AdvReac Type Severity Reaction Status Date / Time levofloxacin [From Levaquin] Allergy Severe THROAT Verified 06/21/20 13:34 CLOSES Active Medications: Current Medications Acetaminophen (Acetaminophen 325 Mg Tablet) 650 mg PO Q6H PRN PRN Reason: Pain, Mild (Pain Scale 1-3) Aspirin (Aspirin Enteric Coated 81 Mg Tablet.) 81 mg PO DAILY [facility] Atorvastatin Calcium (Atorvastatin Calcium 20 Mg Tablet) 20 mg PO BEDTIME [facility] Bupropion HCl (Bupropion Hcl Xl 150 Mg Tab.Er.24h) 150 mg PO DAILY [facility] Enoxaparin Sodium (Enoxaparin Sodium 40 Mg/0.4 Ml Syringe) 40 mg SUBCUT Q24H [facility] Hydrochlorothiazide (Hydrochlorothiazide 25 Mg Tablet) 25 mg PO DAILY [facility]; Protocol Ondansetron HCl (Ondansetron Hcl 4 Mg/2 Ml Vial) 4 mg IVPUSH Q8H PRN PRN Reason: Nausea and Vomiting Pharmacy Consult (Consult Rx Perform Med Rec) 1 each MISCELLANE ONCE PRN PRN Reason: Consult order Sodium Chloride (0.9 % Sodium Chloride Flush 3 Ml Syringe) 3 ml IVFLUSH QSHIFT [facility] Valsartan (Valsartan 320 Mg Tablet) 320 mg PO DAILY [facility]; Protocol Home Medications Medication Instructions Recorded Confirmed Last Taken Type atorvastatin 20 mg tablet 1 tab PO DAILY 07/01/21 07/01/21 06/29/21 History bupropion HCl 100 mg tablet,12 hr 1 tab PO BID 07/01/21 07/01/21 06/29/21 History sustained-release hydrochlorothiazide 25 mg tablet 1 tab PO DAILY 07/01/21 07/01/21 06/29/21 History valsartan 320 mg tablet 1 tab PO DAILY 07/01/21 07/01/21 06/29/21 History Physical Exam Vital Signs and Narrative: Vital Signs: Last Vital Signs Temp 98.1 F 07/01/21 15:31 Pulse 70 07/01/21 15:31 Resp 16 07/01/21 15:31 BP 165/97 H 07/01/21 15:31 Pulse Ox 98 07/01/21 15:31 BMI result Body Mass Index 42.8 Const: Other: Constitutional : Alert, oriented, not in distress Neck : Normal inspection, Supple Cardiovascular : RRR, no JVP, no lower extremity edema Respiratory : fair bilateral air entry, no crackles, wheezes or rhonchi Gastrointestinal: soft, lax, Normal bowel sounds, Non tender Skin : Warm, Dry Neurological : Alert & oriented x3, No focal deficit , CN 2-12 within normal but partially decreased sensation around the mouth on the left side of the face, decreased light touch medial side of left lower extremity Results Labs CBC and Chem 7: 07/01/21 12:53 07/01/21 12:53 Labs: Laboratory Results - last 24 hr 07/01/21 07/01/21 07/01/21 12:53 12:53 12:53 MCV 92.5 MCH 30.6 MCHC 33.1 RDW 13.2 Plt Count 327 MPV 10.3 Immature Gran % (Auto) 0.2 Neut % (Auto) 41.1 L Lymph % (Auto) 48.4 H [place] % (Auto) 8.6 Eos % (Auto) 1.5 Baso % (Auto) 0.2 Lymph # (Auto) 4.1 [place] # (Auto) 0.7 Eos # (Auto) 0.1 Baso # (Auto) 0.0 Abs Immat Gran (auto) 0.02 Absolute Neuts (auto) 3.5 Absolute Nucleated RBC 0.000 Nucleated RBC % (auto) 0.0 Whole Blood PT Whole Blood INR Anion Gap 11 L Estim Creat Clear Calc 99.5 Estimated GFR > 60 POC Glucose Random Glucose 96 Calcium 9.9 D Magnesium 2.1 Total Bilirubin 0.5 Direct Bilirubin 0.2 AST 17 ALT 18 Alkaline Phosphatase 60 Troponin I High Sens < 3.5 Total Protein 6.6 Albumin 4.1 Urine Color Urine Appearance Urine pH Ur Specific [place] Urine Protein Urine Glucose (UA) Urine Ketones Urine Blood Urine Nitrite Ur Leukocyte Esterase Urine Opiates Screen Urine Fentanyl Screen Ur Barbiturates Screen Ur Phencyclidine Scrn Ur Amphetamines Screen U Benzodiazepines Scrn Urine Cocaine Screen U Marijuana (THC) Screen Ethyl Alcohol COVID-19 ([facility]) COVID-19 Clin Com 07/01/21 07/01/21 07/01/21 12:53 12:53 13:19 MCV MCH MCHC RDW Plt Count MPV Immature Gran % (Auto) Neut % (Auto) Lymph % (Auto) [place] % (Auto) Eos % (Auto) Baso % (Auto) Lymph # (Auto) [place] # (Auto) Eos # (Auto) Baso # (Auto) Abs Immat Gran (auto) Absolute Neuts (auto) Absolute Nucleated RBC Nucleated RBC % (auto) Whole Blood PT 11.3 Whole Blood INR 0.9 Anion Gap Estim Creat Clear Calc Estimated GFR POC Glucose Random Glucose Calcium Magnesium Total Bilirubin Direct Bilirubin AST ALT Alkaline Phosphatase Troponin I High Sens Total Protein Albumin Urine Color Urine Appearance Urine pH Ur Specific [place] Urine Protein Urine Glucose (UA) Urine Ketones Urine Blood Urine Nitrite Ur Leukocyte Esterase Urine Opiates Screen Urine Fentanyl Screen Ur Barbiturates Screen Ur Phencyclidine Scrn Ur Amphetamines Screen U Benzodiazepines Scrn Urine Cocaine Screen U Marijuana (THC) Screen Ethyl Alcohol < 10 COVID-19 ([facility]) Negative COVID-19 Clin Com See Note 07/01/21 07/01/21 07/01/21 13:20 13:26 13:32 MCV MCH MCHC RDW Plt Count MPV Immature Gran % (Auto) Neut % (Auto) Lymph % (Auto) [place] % (Auto) Eos % (Auto) Baso % (Auto) Lymph # (Auto) [place] # (Auto) Eos # (Auto) Baso # (Auto) Abs Immat Gran (auto) Absolute Neuts (auto) Absolute Nucleated RBC Nucleated RBC % (auto) Whole Blood PT Whole Blood INR Anion Gap Estim Creat Clear Calc Estimated GFR POC Glucose 81 Random Glucose Calcium Magnesium Total Bilirubin Direct Bilirubin AST ALT Alkaline Phosphatase Troponin I High Sens Total Protein Albumin Urine Color YELLOW Urine Appearance CLEAR Urine pH 5.5 Ur Specific [place] <= 1.005 Urine Protein NEG Urine Glucose (UA) NEG Urine Ketones NEG Urine Blood NEG Urine Nitrite NEG Ur Leukocyte Esterase NEG Urine Opiates Screen POSITIVE H Urine Fentanyl Screen Not Detected Ur Barbiturates Screen Not Detected Ur Phencyclidine Scrn Not Detected Ur Amphetamines Screen Not Detected U Benzodiazepines Scrn Not Detected Urine Cocaine Screen Not Detected U Marijuana (THC) Screen Not Detected Ethyl Alcohol COVID-19 ([facility]) COVID-19 Clin Com Imaging Radiologist's Impressions: Impressions Head CT 07/01/21 12:48 IMPRESSION: No acute intracranial abnormality. Stroke protocol CTA discussed with Dr. Tran at 1:08 PM on 07/01/2021. Head/Neck CTA 07/01/21 13:03 IMPRESSION: - No acute intracranial findings. No acute territorial infarcts. - No significant arterial stenoses in no acute arterial occlusions within the head or neck. Covering provider paged with these findings at 1:30 PM on 07/01/2021. Assessment and Plan (1) Numbness and tingling of left arm and leg: Status: Acute (2) TIA (transient ischemic attack): Status: Acute Plan a 56 years old lady with PMH of obesity, HTN and TIA who presents to the hospital complaining of tongue heaviness and numbness on the left side of her body. numbness and tingling Could be secondary to TIA attack, Migraine variant, somatization disorder or others CT head, CTA are negative for any acute findings Start baby aspirin along with statin Get Neurology evaluation Monitor overnight Hypertension Continue valsartan and hydrochlorothiazide DVT PPX Lovenox Quality Stroke Does the patient have a stroke diagnosis?: No VTE Prior VTE?: No VTE Risk Level:: Medical - moderate - high VTE Device Contraindication: Treatment Not Indicated VTE Drug Contraindication: N/A - Med Ordered
[2021-07-01] MEDS: 0.9 % Sodium Chloride Flush 3 ML SYRINGE IVFLUSH (15:50)
[2021-07-01] MEDS: Enoxaparin Sodium 40 MG/0.4 ML SYRINGE SUBCUT (15:50)
[2021-07-01 16:46] VITALS: BP 165/87; PULSE 70; RESP 19; O2SAT 98
[2021-07-01 19:08] VITALS: BP 152/79; PULSE 72; RESP 20; O2SAT 99
[2021-07-01 22:00] VITALS: BP 123/69; PULSE 67; RESP 16; TEMP 36.9; O2SAT 98
[2021-07-01 22:19] LABS: Glucose, Whole Blood 102 mg/dL (60-115)
[2021-07-01] MEDS: Acetaminophen 325 MG TABLET 650 MG PO (23:46)
[2021-07-02 01:34] VITALS: PULSE 66; RESP 18
[2021-07-02 02:25] VITALS: BP 139/67; PULSE 63; RESP 17; O2SAT 97
[2021-07-02 04:00] VITALS: PULSE 67; RESP 15
[2021-07-02 04:44] LABS: Anion Gap 12 (12-20); Blood Urea Nitrogen 15 mg/dL (9-16); Calcium 9.3 mg/dL (8.4-10.2); Carbon Dioxide 27 mmol/L (22-29); Chloride 107 mmol/L (96-108); Creatinine Clr Calc Pharmacy 100.8; Estimated Glomerular Filt Rate > 60; Glucose Random 107 mg/dL (60-115); Potassium 4.6 mmol/L (3.3-5.1); Sodium 141 mmol/L (135-145)
--- NOTE | 2021-07-02 06:22 | PC.NURSE ---
Pt sleeping, chest rise and fall observed, Pt c/o a headache early on the overnight, treated and resolved with Tylenol, Pt remained complaint free through out the rest of the night, safety maintained, call light in reach, this RN continues to monitor.
[2021-07-02 07:51] LABS: Glucose, Whole Blood 162 mg/dL (60-115)
[2021-07-02] MEDS: 0.9 % Sodium Chloride Flush 3 ML SYRINGE IVFLUSH (08:45)
[2021-07-02] MEDS: buPROPion HCl XL 150 MG TAB.ER.24H PO (10:21)
[2021-07-02] MEDS: hydroCHLOROthiazide 25 MG TABLET PO (10:21)
[2021-07-02] MEDS: Aspirin Enteric Coated 81 MG TABLET.DR PO (10:21)
[2021-07-02] MEDS: Valsartan 320 MG TABLET PO (10:21)
--- NOTE | 2021-07-02 12:08 | P.CNNE_ITS ---
History of Present Illness Data of Consult Service Date: 07/02/21 Primary Care Provider: Pierce Rosales MD [facility] Reason for consult: Tongue numbness 56 years old woman I was asked to see for possibility of stroke. She said that she had an episode which was her 3rd 1 of exact similar type. She developed left-sided tongue and facial numbness that slowly spread it to involving left arm left side of body and leg in about 15 minutes. After that she had a headache on the left side. She said that she was having a headache almost daily and mostly on the left side. She had multiple investigations that did not re veal any significant pathology. Review of Systems Review of Systems: No recent cold or flu-like illness or trauma PMFSH Past Medical History Medical History (Updated 07/02/21 @ 12:11 by Catrina Freeman MD) Hypertension TIA (transient ischemic attack) Surgical History Surgical History Hx of appendectomy Hx of cholecystectomy Social History Social History Alcohol intake: never Patient Tobacco Use Status: Never used Tobacco Use of substances other than those prescribed or required for medical reasons: No Advance Directives: No Advance Directives Information Provided: No Meds Allergies Allergy/AdvReac Type Severity Reaction Status Date / Time levofloxacin [From Levaquin] Allergy Severe THROAT Verified 06/21/20 13:34 CLOSES Active Medications: Current Medications Acetaminophen (Acetaminophen 325 Mg Tablet) 650 mg PO Q6H PRN PRN Reason: Pain, Mild (Pain Scale 1-3) Last Admin: 07/01/21 23:46 Dose: 650 mg Documented by: Aspirin (Aspirin Enteric Coated 81 Mg Tablet.) 81 mg PO DAILY [facility] Last Admin: 07/02/21 10:21 Dose: 81 mg Documented by: Atorvastatin Calcium (Atorvastatin Calcium 20 Mg Tablet) 20 mg PO BEDTIME [facility] Bupropion HCl (Bupropion Hcl Xl 150 Mg Tab.Er.24h) 150 mg PO DAILY [facility] Last Admin: 07/02/21 10:21 Dose: 150 mg Documented by: Enoxaparin Sodium (Enoxaparin Sodium 40 Mg/0.4 Ml Syringe) 40 mg SUBCUT Q24H [facility] Last Admin: 07/01/21 15:50 Dose: 40 mg Documented by: Hydrochlorothiazide (Hydrochlorothiazide 25 Mg Tablet) 25 mg PO DAILY [facility]; Protocol Last Admin: 07/02/21 10:21 Dose: 25 mg Documented by: Ondansetron HCl (Ondansetron Hcl 4 Mg/2 Ml Vial) 4 mg IVPUSH Q8H PRN PRN Reason: Nausea and Vomiting Pharmacy Consult (Consult Rx Perform Med Rec) 1 each MISCELLANE ONCE PRN PRN Reason: Consult order Sodium Chloride (0.9 % Sodium Chloride Flush 3 Ml Syringe) 3 ml IVFLUSH QSHIFT [facility] Last Admin: 07/02/21 08:45 Dose: 3 ml Documented by: Valsartan (Valsartan 320 Mg Tablet) 320 mg PO DAILY [facility]; Protocol Last Admin: 07/02/21 10:21 Dose: 320 mg Documented by: Home Medications Medication Instructions Recorded Confirmed Last Taken Type atorvastatin 20 mg tablet 1 tab PO DAILY 07/01/21 07/01/21 06/29/21 History bupropion HCl 100 mg tablet,12 hr 1 tab PO BID 07/01/21 07/01/21 06/29/21 History sustained-release hydrochlorothiazide 25 mg tablet 1 tab PO DAILY 07/01/21 07/01/21 06/29/21 History valsartan 320 mg tablet 1 tab PO DAILY 07/01/21 07/01/21 06/29/21 History Physical Exam Vital Signs: Vital Signs: Last Vital Signs Temp 98.4 F 07/01/21 22:00 Pulse 67 07/02/21 04:00 Resp 15 07/02/21 04:00 BP 139/67 07/02/21 02:25 Pulse Ox 97 07/02/21 02:25 BMI result Body Mass Index 42.8 Neuro: Other: She was alert and awake with normal spontaneity of speech fluency comprehension and affect. Face was symmetrical. Visual mccann are full. There was no focal weakness. Plantars were flexors. Deep tendon reflexes were trace. Results Labs CBC & Chem 7: 07/01/21 12:53 07/02/21 03:49 Labs: Short CBC 07/01/21 Range/Units 12:53 WBC 8.4 (4.8-10.8) X10*3/uL Hgb 13.1 (12.0-16.0) g/dl Hct 39.6 (37.0-47.0) % Plt Count 327 (160-400) X10*3/uL BMP 07/01/21 07/02/21 12:53 03:49 Sodium 140 141 Potassium 4.3 4.6 Chloride 105 107 Carbon Dioxide 28 27 BUN 21 H D 15 Creatinine 0.76 0.75 Calcium 9.9 D 9.3 D Liver Function 07/01/21 Range/Units 12:53 Total Bilirubin 0.5 (0.0-1.0) mg/dL Direct Bilirubin 0.2 (0.0-0.5) mg/dL AST 17 (5-31) U/L ALT 18 (0-31) U/L Alkaline Phosphatase 60 (39-117) U/L Albumin 4.1 (3.5-5.0) g/dL Urine 07/01/21 Range/Units 13:26 Urine Color YELLOW Urine Appearance CLEAR Urine pH 5.5 (5.0-8.0) Ur Specific [place] <= 1.005 (1.005-1.025) Urine Protein NEG (NEG-TRACE) MG/DL Urine Glucose (UA) NEG (NEG) MG/DL Noncontrast head CT of brain, CTA of brain and neck, and MRI of brain without contrast did not reveal any significant abnormality. Assessment and Plan (1) Migraine with aura: Status: Acute (2) Migraine with aura and with status migrainosus: Status: Acute 56 years old woman with classical migraine with aura associated with status tiffany rainosus. She was educated about this condition. Likely reason for worsening of her headache was menopause she was going through. I recommended dose of sumatriptan if needed and starting her on topiramate 25 mg twice a day for migraine control. Procedures Date of Service Date of Service: 07/02/21
--- NOTE | 2021-07-02 12:19 | MHC.CM.PN ---
NATH 07/02/21 FEMALE 56 DX NUMBNESS SHE LIVES WITH HER SISTER. SHE IS INDEPENDENT ALL FUNCTIONAL MOBILITY. A HCP HAS BEEN DOCUMENTED. IT HAS BEEN SCANNED INTO THE EMR. COPIES HAVE BEEN PROVIDED TO THE PATIENT. SHE IS VAX X 2 PFIZER. DP HOME NO SERVICES. PATIENT WILL ARRANGE FOR TRANSPORTATION HOME.
[2021-07-02 12:55] VITALS: BP 152/86; PULSE 66; O2SAT 99
--- NOTE | 2021-07-02 12:55 | P.DS_ITS ---
DS: Providers Provider Date of Service: 07/02/21 Date of admission: 07/01/21 14:55 Primary care physician: Pierce Rosales MD Consults: 07/01/21 14:55 Consult to Neurology Routine Consulting Provider: [facility] Reason for consultation: facial and left-sided numbness DS: Diagnosis Discharge Diagnosis (1) Migraine with aura: Status: Acute (2) Migraine with aura and with status migrainosus: Status: Acute (3) Numbness and tingling of left arm and leg: Status: Acute DS: Summary Hospital Course Hospital Course: admission note HPI ?a 56 years old lady with PMH of obesity, HTN and TIA who presents to the hospital complaining of tongue heaviness? and numbness on the left side of her body.? The patient report that she woke up normally with no complaints this morning but when she was walking she started feeling tongue heaviness associated with and stent feeling of weakness and lightheadedness associated with numbness of the left upper and lower extremities partially known the whole limp.? Her symptoms still improving at the time of presentation which has been almost 3 hours after the incident. ? She reports having similar episodes starting from 2012 that was diagnosed as TIAs and she has been taking statin baby aspirin for that.? Her blood pressure is fairly controlled at home. ? In the emergency she was evaluated by CT head and CTA which both were negative for any acute findings. Admitted for further evaluation and treatment. Hospital course The patient was admitted for observation the hospital. Her symptoms resolved within few hours of presentation. Images of CT and CT head were both negative for any acute findings. She was evaluated by Neurology team who diagnosed her with status migrainous and recommended starting to be remained 25 mg twice daily and sumatriptan as needed to keep her migraine under control. Plan to be discharged home on to be VIII and Soma tripped and to follow-up with Neurology as needed. Time Spent with Patient Time attestation: Total time spent providing and/or coordinating discharge services: Discharge coordination time: Less than 30 minutes Quality: Safe Use of Opioids Does Pt have an Active Cancer Diagnosis on the Problem List?: No Quality: Stroke Does the patient have a stroke diagnosis?: No Physical Exam Vital Signs: Vital Signs: Last Vital Signs Temp 98.4 F 07/01/21 22:00 Pulse 67 07/02/21 04:00 Resp 15 07/02/21 04:00 BP 139/67 07/02/21 02:25 Pulse Ox 97 07/02/21 02:25 BMI result Body Mass Index 42.8 Const: Other: Constitutional : Alert, oriented, not in distress Neck : Normal inspection, Supple Cardiovascular : RRR, no JVP, no lower extremity edema Respiratory : fair bilateral air entry, no crackles, wheezes or rhonchi Gastrointestinal: soft, lax, Normal bowel sounds, Non tender Skin : Warm, Dry Neurological : Alert & oriented x3, No focal deficit , CN 2-12 within normal DS: Data Data Completed and Pending Labs on day of discharge: Laboratory Results - last 24 hr 07/01/21 07/01/21 07/01/21 12:53 12:53 12:53 WBC 8.4 RBC 4.28 Hgb 13.1 Hct 39.6 MCV 92.5 MCH 30.6 MCHC 33.1 RDW 13.2 Plt Count 327 MPV 10.3 Immature Gran % (Auto) 0.2 Neut % (Auto) 41.1 L Lymph % (Auto) 48.4 H [place] % (Auto) 8.6 Eos % (Auto) 1.5 Baso % (Auto) 0.2 Lymph # (Auto) 4.1 [place] # (Auto) 0.7 Eos # (Auto) 0.1 Baso # (Auto) 0.0 Abs Immat Gran (auto) 0.02 Absolute Neuts (auto) 3.5 Absolute Nucleated RBC 0.000 Nucleated RBC % (auto) 0.0 Whole Blood PT Whole Blood INR Sodium 140 Potassium 4.3 Chloride 105 Carbon Dioxide 28 Anion Gap 11 L BUN 21 H D Creatinine 0.76 Estim Creat Clear Calc 99.5 Estimated GFR > 60 POC Glucose Random Glucose 96 Calcium 9.9 D Magnesium 2.1 Total Bilirubin 0.5 Direct Bilirubin 0.2 AST 17 ALT 18 Alkaline Phosphatase 60 Troponin I High Sens < 3.5 Total Protein 6.6 Albumin 4.1 Urine Color Urine Appearance Urine pH Ur Specific [place] Urine Protein Urine Glucose (UA) Urine Ketones Urine Blood Urine Nitrite Ur Leukocyte Esterase Urine Opiates Screen Urine Fentanyl Screen Ur Barbiturates Screen Ur Phencyclidine Scrn Ur Amphetamines Screen U Benzodiazepines Scrn Urine Cocaine Screen U Marijuana (THC) Screen Ethyl Alcohol COVID-19 ([facility]) COVID-19 Clin Com 0407/01/21 07/01/21 12:53 12:53 13:19 WBC RBC Hgb Hct MCV MCH MCHC RDW Plt Count MPV Immature Gran % (Auto) Neut % (Auto) Lymph % (Auto) [place] % (Auto) Eos % (Auto) Baso % (Auto) Lymph # (Auto) [place] # (Auto) Eos # (Auto) Baso # (Auto) Abs Immat Gran (auto) Absolute Neuts (auto) Absolute Nucleated RBC Nucleated RBC % (auto) Whole Blood PT 11.3 Whole Blood INR 0.9 Sodium Potassium Chloride Carbon Dioxide Anion Gap BUN Creatinine Estim Creat Clear Calc Estimated GFR POC Glucose Random Glucose Calcium Magnesium Total Bilirubin Direct Bilirubin AST ALT Alkaline Phosphatase Troponin I High Sens Total Protein Albumin Urine Color Urine Appearance Urine pH Ur Specific [place] Urine Protein Urine Glucose (UA) Urine Ketones Urine Blood Urine Nitrite Ur Leukocyte Esterase Urine Opiates Screen Urine Fentanyl Screen Ur Barbiturates Screen Ur Phencyclidine Scrn Ur Amphetamines Screen U Benzodiazepines Scrn Urine Cocaine Screen U Marijuana (THC) Screen Ethyl Alcohol < 10 COVID-19 ([facility]) Negative COVID-19 Clin Com See Note 07/01/21 07/01/21 07/01/21 13:20 13:26 13:32 WBC RBC Hgb Hct MCV MCH MCHC RDW Plt Count MPV Immature Gran % (Auto) Neut % (Auto) Lymph % (Auto) [place] % (Auto) Eos % (Auto) Baso % (Auto) Lymph # (Auto) [place] # (Auto) Eos # (Auto) Baso # (Auto) Abs Immat Gran (auto) Absolute Neuts (auto) Absolute Nucleated RBC Nucleated RBC % (auto) Whole Blood PT Whole Blood INR Sodium Potassium Chloride Carbon Dioxide Anion Gap BUN Creatinine Estim Creat Clear Calc Estimated GFR POC Glucose 81 Random Glucose Calcium Magnesium Total Bilirubin Direct Bilirubin AST ALT Alkaline Phosphatase Troponin I High Sens Total Protein Albumin Urine Color YELLOW Urine Appearance CLEAR Urine pH 5.5 Ur Specific [place] <= 1.005 Urine Protein NEG Urine Glucose (UA) NEG Urine Ketones NEG Urine Blood NEG Urine Nitrite NEG Ur Leukocyte Esterase NEG Urine Opiates Screen POSITIVE H Urine Fentanyl Screen Not Detected Ur Barbiturates Screen Not Detected Ur Phencyclidine Scrn Not Detected Ur Amphetamines Screen Not Detected U Benzodiazepines Scrn Not Detected Urine Cocaine Screen Not Detected U Marijuana (THC) Screen Not Detected Ethyl Alcohol COVID-19 ([facility]) COVID-19 Clin Com 07/01/21 07/02/21 07/02/21 22:08 03:49 07:32 WBC RBC Hgb Hct MCV MCH MCHC RDW Plt Count MPV Immature Gran % (Auto) Neut % (Auto) Lymph % (Auto) [place] % (Auto) Eos % (Auto) Baso % (Auto) Lymph # (Auto) [place] # (Auto) Eos # (Auto) Baso # (Auto) Abs Immat Gran (auto) Absolute Neuts (auto) Absolute Nucleated RBC Nucleated RBC % (auto) Whole Blood PT Whole Blood INR Sodium 141 Potassium 4.6 Chloride 107 Carbon Dioxide 27 Anion Gap 12 BUN 15 Creatinine 0.75 Estim Creat Clear Calc 100.8 Estimated GFR > 60 POC Glucose 102 162 H Random Glucose 107 Calcium 9.3 D Magnesium Total Bilirubin Direct Bilirubin AST ALT Alkaline Phosphatase Troponin I High Sens Total Protein Albumin Urine Color Urine Appearance Urine pH Ur Specific [place] Urine Protein Urine Glucose (UA) Urine Ketones Urine Blood Urine Nitrite Ur Leukocyte Esterase Urine Opiates Screen Urine Fentanyl Screen Ur Barbiturates Screen Ur Phencyclidine Scrn Ur Amphetamines Screen U Benzodiazepines Scrn Urine Cocaine Screen U Marijuana (THC) Screen Ethyl Alcohol COVID-19 ([facility]) COVID-19 Clin Com Discharge Plan Discharge Patient Disposition: Home, Self-Care Referrals: Pierce Rosales MD [Primary Care Provider] - 1 Week Discharge Medications: New topiramate 25 mg tablet 25 mg PO BID Qty: 60 2RF sumatriptan succinate 50 mg tablet 50 mg PO Q2-4H PRN (Reason: migraine headache) Qty: 20 4RF Rx Instructions: do not exceed 4 doses per 24 hrs Continued atorvastatin 20 mg tablet 1 tab PO DAILY 0RF bupropion HCl 100 mg tablet sustained-release 12 hr 1 tab PO BID 0RF valsartan 320 mg tablet 1 tab PO DAILY 0RF hydrochlorothiazide 25 mg tablet 1 tab PO DAILY 0RF Discharge Orders: Discharge Order (Routine); Ordered 07/02/21 Ordered By: Brittani Cohn Diet: advance to usual diet Activity on Discharge: As tolerated Stand Alone Forms: Patient Portal Discharge page Care Plan Goals: Read below Health Concerns: Read below Plan of Treatment: Read below Assessment: You were admitted to the hospital for evaluation of numbness and tongue heaviness. Images including CT and CTA were negative for any acute stroke or narrowing in your brain vessels. You were evaluated by neurologist who thinks your symptoms are related to status migrainous from having uncontrolled migraine. Start Topiramate 25 mg twice Daily Use sumatriptan as needed for pain To follow-up with Neurology as outpatient
[2021-07-02] MEDS: Acetaminophen 325 MG TABLET 650 MG PO (13:26)
[2021-07-02 13:40] LABS: Glucose, Whole Blood 96 mg/dL (60-115)
--- NOTE | 2021-07-02 14:14 | MHC.CM.PN ---
NATH 07/02/21 PATIENT IS DISCHARGED TO HOME NO SERVICES. PATIENT HAS ARRANGED TRANSPORTATION HOME.
== END 2021-07-02 14:22 | disposition home or self-care (01) ==
LOC: HO.ED 13:26 → HO.EDOVER 15:02
PROVIDERS: Admitting Provider Student in an Organized Health Care Education/Training Program; Emergency Provider Emergency Medicine; PCP Internal Medicine; Visit Provider Student in an Organized Health Care Education/Training Program
DX: R20.0 Anesthesia of skin (principal); R20.2 Paresthesia of skin; G43.101 Migraine with aura, not intractable, with status migrainosus; I10 Essential (primary) hypertension; I45.81 Long QT syndrome; E66.3 Overweight; Z68.41 Body mass index [BMI] 40.0-44.9, adult; Z20.822 Contact with and (suspected) exposure to COVID-19; Z90.49 Acquired absence of other specified parts of digestive tract; Z88.8 Allergy status to other drugs, medicaments and biological substances; Z79.82 Long term (current) use of aspirin; Z79.899 Other long term (current) drug therapy
CPT/HCPCS: 36415; 70450; 70496; 70498; 80048; 80076; 80307; 81003; 82077; 82947; 83735; 84484; 85025; 85610; 87635; 93005; 96372; 96374; 99219; 99285; J1650; Q9967

== ENCOUNTER 2022-05-17 09:20 | Emergency (ER) | payer BC, SELFPAY ==
--- NOTE | ~2022-05-17 | CT_ITS ---
EXAMINATION: CT HEAD WITHOUT CONTRAST CLINICAL INFORMATION: Headache and hypertensive urgency COMPARISON: Head CT 07/11/2021 TECHNIQUE: Imaging was performed from the skull base to vertex without intravenous administration of contrast. This CT examination was performed using dose optimization techniques as appropriate, variously including the following: *Automated exposure control *Adjustment of mA and/or kV according to patient size (this includes techniques or standardized protocols for targeted exams where dose is matched to indication/reason for exam; i.e. extremities or head) *Use of iterative reconstruction technique Total exam dose length product: 636 mGy-cm FINDINGS: No intra or extra-axial fluid collection, hemorrhage, or mass. No ventriculomegaly. No midline shift or herniation. Basal cisterns are patent. Garza-white matter differentiation is maintained. No territorial encephalomalacia. No significant volume loss. There is no abnormal attenuation within the brain parenchyma. No calvarial fracture or soft tissue abnormality. The mastoid air cells and visualized portions of the paranasal sinuses are well aerated. CT/CT head/brain wo IV con IMPRESSION: 1. No acute intracranial pathology.
[2022-05-17 09:39] VITALS: BP 195/104; PULSE 79; RESP 18; TEMP 36.6; O2SAT 96; BMI 40.7
[2022-05-17 09:42] VITALS: BP 217/107
[2022-05-17 11:03] VITALS: BP 182/101; PULSE 64; RESP 16; O2SAT 100
--- NOTE | 2022-05-17 12:18 | ECG_ITS ---
Test Reason : hypertension Blood Pressure : / mmHG Vent. Rate : 065 BPM Atrial Rate : 065 BPM P-R Int : 166 ms QRS Dur : 092 ms QT Int : 452 ms P-R-T Axes : 017 -03 007 degrees QTc Int : 470 ms Normal sinus rhythm cannot exclude old Inferior infarct , age undetermined Cannot rule out Anterior infarct , age undetermined Abnormal ECG When compared with ECG of 01-JUL-2021 13:23, No significant change was found Referred By: Juvenal Alicia Electronically Signed By:LI CATALAN
[2022-05-17 12:43] LABS: MANUAL DIFF FLAG NO
[2022-05-17] MEDS: Metoclopramide HCl 10 MG/2 ML VIAL IVPUSH (12:45)
[2022-05-17] MEDS: Acetaminophen 325 MG TABLET 975 MG PO (12:45)
[2022-05-17] MEDS: cloNIDine HCL 0.1 MG TABLET PO (12:46)
[2022-05-17 12:47] LABS: Basophils Percent Auto 0.5 % (0-2); Eosinophils Absolute Auto 0.1 X10*3/uL (0.0-0.4); Eosinophils Percent Auto 1.4 % (0-4); Hematocrit 43.4 % (37.0-47.0); Hemoglobin 14.9 g/dl (12.0-16.0); Imm Gran Abs Auto 0.01 X10*3/uL (0.00-0.03); Imm Gran Pct Auto 0.1 % (0.0-0.4); Lymphocytes Absolute Auto 3.6 X10*3/uL (1.2-4.9); Lymphocytes Percent Auto 40.9 % (20-40); Mean Corpuscular HGB Conc 34.3 g/dl (31.0-35.0); Mean Corpuscular Hemoglobin 30.8 pg (27.0-33.0); Mean Corpuscular Volume 89.9 fL (80.0-98.0); Mean Platelet Volume 10.6 fL (9.4-12.3); Monocytes Absolute Auto 0.7 X10*3/uL (0.1-1.2); Monocytes Percent Auto 7.7 % (2-11); Neutrophils Absolute Auto 4.3 x10*3/uL (2.0-8.3); Neutrophils Percent Auto 49.4 % (45-73); Platelet Count 355 X10*3/uL (160-400); Red Blood Count 4.83 X10*6/uL (4.20-5.50); Red Cell Distribution Width 12.9 % (11.0-16.0); White Blood Count 8.7 X10*3/uL (4.8-10.8)
[2022-05-17 13:05] LABS: Anion Gap 13 (12-20); Blood Urea Nitrogen 19 mg/dL (9-16); Carbon Dioxide 31 mmol/L (22-29); Chloride 102 mmol/L (96-108); Creatinine Clr Calc Pharmacy 96.6; Estimated Glomerular Filt Rate > 60; Glucose Random 104 mg/dL (60-115); Potassium 4.6 mmol/L (3.3-5.1); Sodium 141 mmol/L (135-145)
--- NOTE | 2022-05-17 13:17 | ED_ITS ---
HPI - General Adult General Chief complaint: Recheck/Abnormal Lab/Rx Stated complaint: high bp nausea Time Seen by Provider: 05/17/22 10:41 Source: patient Mode of arrival: ambulatory Limitations: no limitations History of Present Illness HPI narrative: 56-year-old female presents with headache, elevated blood pressure. She has been off of her blood pressure medication for several months. Over the past 1 week, patient has had frontal headaches that affect her eyes in vision. She has also had nausea without vomiting. She checked her blood pressure at home and it was approximately 230/130. She contacted her primary care provider who instructed her to go the emergency department, however, she did not come. She was subsequently placed on losartan with hydrochlorothiazide. Her blood pressures come down however, home her blood pressure diastolic was still significantly elevated and she was directed back to the emergency department. At this time, patient denies any chest pain, shortness breath, orthopnea, PND, lower extremity edema. Her headache is moderate to severe in nature. There is no clear relieving or exacerbating features. It can be worse with light. She has no focal neurologic deficits or neurologic complaints other than headache. She did take her blood pressure medication this morning. Related Data Home Medications Medication Instructions Recorded Confirmed atorvastatin 20 mg tablet 1 tab PO DAILY 07/01/21 07/01/21 bupropion HCl 100 mg tablet,12 hr 1 tab PO BID 07/01/21 07/01/21 sustained-release hydrochlorothiazide 25 mg tablet 1 tab PO DAILY 07/01/21 07/01/21 valsartan 320 mg tablet 1 tab PO DAILY 07/01/21 07/01/21 Previous Rx's Medication Instructions Recorded sumatriptan succinate 50 mg tablet 50 mg PO Q2-4H PRN migraine 07/02/21 headache #20 tabs topiramate 25 mg tablet 25 mg PO BID #60 tabs 07/02/21 clonidine HCl 0.1 mg 0.1 mg PO BID PRN hypertension #10 05/17/22 tablet,extended release,12 hr tabs Allergies Allergy/AdvReac Type Severity Reaction Status Date / Time levofloxacin [From Levaquin] Allergy Severe THROAT Verified 06/21/20 13:34 CLOSES Review of Systems Review of Systems: CONSTITUTIONAL: Denies weight loss, fever and chills. HEENT: Denies changes in vision and hearing. RESPIRATORY: Denies SOB and cough. CV: Denies palpitations no CP. GI: Denies abdominal pain, nausea, vomiting and diarrhea. : Denies dysuria and urinary frequency. MSK: Denies myalgia and joint pain. SKIN: Denies rash and pruritus. NEUROLOGICAL: Positive headache negative syncope. PSYCHIATRIC: Denies recent changes in mood. Denies anxiety and depression. All other ROS are negative unless in HPI [facility] Past Medical History Medical History Hypertension Migraine with aura and with status migrainosus Surgical History Hx of appendectomy Hx of cholecystectomy Social History Social History Alcohol intake: current Alcohol intake frequency: a few times a month Patient Tobacco Use Status: Never used Tobacco Smoked in Last 30 Days: No Use of substances other than those prescribed or required for medical reasons: No Advance Directives: Yes Advance Directives on File: Yes Advance Directives Date on File: 07/03/21 service: No Current occupational status: employed Physical Exam ED Vital Signs: Vital Signs - 24 hr 05/17/22 09:39 05/17/22 09:42 05/17/22 11:03 Temperature 97.9 F Pulse Rate 79 64 Respiratory Rate 18 16 Blood Pressure 195/104 H 217/107 H 182/101 H Pulse Oximetry 96 100 Oxygen Delivery Method Room Air Room Air 05/17/22 15:07 Temperature Pulse Rate 60 Respiratory Rate 16 Blood Pressure 111/61 Pulse Oximetry 97 Oxygen Delivery Method Room Air BMI result Body Mass Index 40.7 GEN: Well developed, no acute distress, alert, oriented HEENT: Normocephalic, atraumatic, normal external ears, nose appears normal, no oropharyngeal edema or exudates Eyes: Normal to appearance Neck: Supple, no lymphadenopathy Respiratory: Talks in complete sentences, no respiratory distress, clear to auscultation bilaterally Cardiovascular: Regular rate and rhythm, no murmurs rubs or gallops Abdomen: Soft, nontender, nondistended, no guarding, no rebound Back: No CVA tenderness Extremities: No clubbing cyanosis or edema Neurologic: No focal neurologic deficits, cranial nerves 2-12 intact, strength is 5/5 bilaterally, gait normal Skin: No rash Course Course Course Narrative: 56-year-old female presents with hypertensive urgency. She is symptomatic with headache. Unclear whether the headache is causing a more elevated blood pressure, however, I suspect noncompliance has a significant factor in regards to her hypertension. She has had no chest pain, shortness of breath or other cardiac symptoms. At this time, will obtain a CT does rule out intracranial bleeding as an additional comorbidity. Will check metabolic panel to assess for renal dysfunction. Patient did take her valsartan with hydrochlorothiazide. It does appear to have improved her blood pressure from 230 systolic the 270. However, at this time, I will give an additional 0.1 mg of clonidine. I will reassess her blood pressure, laboratory analysis and CT scan. Assuming everything is metabolically unremarkable, patient can likely be discharged on a short course of clonidine with follow-up with her primary care provider. Disposition is currently pending all results. Reevaluation(s) Reevaluation #1: blood pressure came down nicely. Will d/c on current medications + small dose of clonidine prn discussed paremeters as well. Close follow up with PMD Time: 16:03 Medications Administered Discontinued Medications Generic Name Dose Route Start Last Admin Trade Name Freq PRN Reason Stop Dose Admin Acetaminophen 975 mg 05/17/22 12:19 05/17/22 12:45 Acetaminophen 325 Mg Tablet PO 05/17/22 12:20 975 mg ONCE ONE Administration Clonidine HCl 0.1 mg 05/17/22 12:18 05/17/22 12:46 Clonidine Hcl 0.1 Mg Tablet PO 05/17/22 12:19 0.1 mg ONCE ONE Administration Protocol Metoclopramide HCl 10 mg 05/17/22 12:18 05/17/22 12:45 Metoclopramide Hcl 10 Mg/2 Ml Vial IVPUSH 05/17/22 12:19 10 mg ONCE ONE Administration Medical Decision Making Medical Decision Making MDM Narrative: 56-year-old female presents with hypertensive urgency. She is symptomatic with headache. Unclear whether the headache is causing a more elevated blood pressure, however, I suspect noncompliance has a significant factor in regards to her hypertension. She has had no chest pain, shortness of breath or other cardiac symptoms. At this time, will obtain a CT does rule out intracranial bleeding as an additional comorbidity. Will check metabolic panel to assess for renal dysfunction. Patient did take her valsartan with hydrochlorothiazide. It does appear to have improved her blood pressure from 230 systolic the 270. However, at this time, I will give an additional 0.1 mg of clonidine. I will reassess her blood pressure, laboratory analysis and CT scan. Assuming everything is metabolically unremarkable, patient can likely be discharged on a short course of clonidine with follow-up with her primary care provider. Disposition is currently pending all results. Differential Diagnosis Differential Diagnoses: The differential diagnosis associated with the presentation includes (Hypertensive urgency, renal dysfunction, electrolyte abnormality, intracranial bleeding, tension headache, cluster headache, migraine) Admission/Observation Consideration of admission/observation: Escalation of care including admission/observation considered Lab Data MDM Lab Attestation statement: I reviewed the patient's lab results. 05/17/22 12:39 05/17/22 12:39 Labs: Lab Results 05/17/22 05/17/22 Range/Units 12:39 12:39 WBC 8.7 (4.8-10.8) X10*3/uL RBC 4.83 (4.20-5.50) X10*6/uL Hgb 14.9 (12.0-16.0) g/dl Hct 43.4 (37.0-47.0) % MCV 89.9 (80.0-98.0) fL MCH 30.8 (27.0-33.0) pg MCHC 34.3 (31.0-35.0) g/dl RDW 12.9 (11.0-16.0) % Plt Count 355 (160-400) X10*3/uL MPV 10.6 (9.4-12.3) fL Immature Gran % (Auto) 0.1 (0.0-0.4) % Neut % (Auto) 49.4 (45-73) % Lymph % (Auto) 40.9 H (20-40) % Carver % (Auto) 7.7 (2-11) % Eos % (Auto) 1.4 (0-4) % Baso % (Auto) 0.5 (0-2) % Lymph # (Auto) 3.6 (1.2-4.9) X10*3/uL Carver # (Auto) 0.7 (0.1-1.2) X10*3/uL Eos # (Auto) 0.1 (0.0-0.4) X10*3/uL Baso # (Auto) 0.0 (0.0-0.2) X10*3/uL Abs Immat Gran (auto) 0.01 (0.00-0.03) X10*3/uL Absolute Neuts (auto) 4.3 (2.0-8.3) x10*3/uL Absolute Nucleated RBC 0.000 (0.0-0.012) X10*3/uL Nucleated RBC % (auto) 0.0 (0.0-0.2) /100WBC Sodium 141 (135-145) mmol/L Potassium 4.6 (3.3-5.1) mmol/L Chloride 102 (96-108) mmol/L Carbon Dioxide 31 H (22-29) mmol/L Anion Gap 13 (12-20) BUN 19 H (9-16) mg/dL Creatinine 0.76 (0.5-1.4) mg/dL Estim Creat Clear Calc 96.6 Estimated GFR > 60 Random Glucose 104 (60-115) mg/dL Calcium 10.0 D (8.4-10.2) mg/dL Independent Interpretation I performed an independent interpretation of an: EKG (Normal sinus rhythm heart rate 65, Q-waves noted in the inferior leads likely normal variant, poor precordial progression possible old anterior septal wall SC, no acute ST elevations or depressions, otherwise normal intervals) and CT Scan (CT head no acute intracranial bleeding) Radiology Impression Discussion of test interpretation with radiology: I have reviewed the radiologist's reading. ( CT/CT head/brain wo IV con IMPRESSION: 1. No acute intracranial pathology. Dictated By:Abraham CulpSigned By:<Electronically signed by Abraham Culp in OV>05/17/22 [id number]) External Record Review External record reviewed: Office record (Neurology visit from July 02, 2021) Tests considered The following testing was considered but not selected: MRI Prescription Management I considered prescription management with: Pain Medication Chronic Conditions Patient?s care impacted by: Hypertension Discharge Plan Discharge Clinical Impression: Hypertensive urgency Patient Disposition: Home, Self-Care Instructions: Hypertensive Crisis (ED) Additional Instructions: He will be given a prescription for clonidine. You should continue your other blood pressure medications at this time. I am recommending taking clonidine 0.1 mg twice daily as needed. If your systolic blood pressure is greater than 170 for your diastolic blood pressure is greater than 110 you should take the clonidine. For worsening headache, chest pain, shortness of breath, palpitations, lightheadedness, please seek attention in the emergency department. Prescriptions: New clonidine HCl 0.1 mg tablet extended release 12 hr 0.1 mg PO BID PRN (Reason: hypertension) Qty: 10 0RF Rx Instructions: Take 1 tablet twice daily as needed for systolic blood pressure greater than 170 and/or diastolic blood pressure greater than 110. No Action atorvastatin 20 mg tablet 1 tab PO DAILY bupropion HCl 100 mg tablet sustained-release 12 hr 1 tab PO BID valsartan 320 mg tablet 1 tab PO DAILY hydrochlorothiazide 25 mg tablet 1 tab PO DAILY topiramate 25 mg tablet 25 mg PO BID Qty: 60 2RF sumatriptan succinate 50 mg tablet 50 mg PO Q2-4H PRN (Reason: migraine headache) Qty: 20 4RF Rx Instructions: do not exceed 4 doses per 24 hrs Referrals: Pierce Rosales MD [Primary Care Provider] - 3 days
[2022-05-17 15:07] VITALS: BP 111/61; PULSE 60; RESP 16; O2SAT 97
== END 2022-05-17 16:37 | disposition home or self-care (01) ==
PROVIDERS: Emergency Provider Emergency Medicine; PCP Internal Medicine
DX: I16.0 Hypertensive urgency (principal); R51.9 Headache, unspecified; Z79.02 Long term (current) use of antithrombotics/antiplatelets; Z79.899 Other long term (current) drug therapy
CPT/HCPCS: 36415; 70450; 80048; 85025; 93005; 96374; 99284; 99285; J2765

== ENCOUNTER 2023-02-17 15:10 | Emergency (ER) | payer BC, SELFPAY ==
--- NOTE | ~2023-02-17 | XR_ITS ---
EXAMINATION: XR CHEST CLINICAL INFORMATION: Chest pain COMPARISON: None available. TECHNIQUE: Frontal view of the chest was obtained. FINDINGS: No significant abnormality is noted involving the heart, lungs, mediastinum, bony thorax or soft tissues. XR/XR chest 1V IMPRESSION: Unremarkable chest examination.
--- NOTE | 2023-02-17 15:11 | ECG_ITS ---
Test Reason : CHEST PAIN Blood Pressure : / mmHG Vent. Rate : 092 BPM Atrial Rate : 092 BPM P-R Int : 166 ms QRS Dur : 102 ms QT Int : 382 ms P-R-T Axes : 038 006 013 degrees QTc Int : 472 ms Normal sinus rhythm Minimal voltage criteria for LVH, may be normal variant ( Amma product ) Abnormal ECG When compared with ECG of 17-MAY-2022 14:40, No significant change was found Heart rate has increased Referred By: Generic ED Physician Electronically Signed By:ABHIJIT FINLEY MD
[2023-02-17 15:42] VITALS: BP 190/81; PULSE 80; RESP 16; TEMP 37.3; O2SAT 98; BMI 42.1
--- NOTE | 2023-02-17 15:42 | ED_ITS ---
HPI - Chest Pain General Chief Complaint: Chest Pain Stated Complaint: chest pain Time Seen by Provider: 02/17/23 16:32 History of Present Illness HPI narrative: Pt is a 57yo female who presents to the ED with a cc of chest pain. Pt states it began at approx 1430 and lasted about 45 minutes. Pain was sharp and severe, radiating to the left shoulder. Pt states she was resting comfortably watching TV when this occured. Notes some SOB when the pain was occuring. Denies n/v, headaches, leg swelling, or dizziness. States she has never experienced anything similar to this in the past. Pt does have a hx of anxiety but no panic attacks. Pt has no cardiac hx besides a dx of HTN. Pt is currently resting comfortably. Related Data Home Medications Medication Instructions Recorded Confirmed atorvastatin 20 mg tablet 1 tab PO DAILY 07/01/21 07/01/21 bupropion HCl 100 mg tablet,12 hr 1 tab PO BID 07/01/21 07/01/21 sustained-release hydrochlorothiazide 25 mg tablet 1 tab PO DAILY 07/01/21 07/01/21 valsartan 320 mg tablet 1 tab PO DAILY 07/01/21 07/01/21 Previous Rx's Medication Instructions Recorded sumatriptan succinate 50 mg tablet 50 mg PO Q2-4H PRN migraine 07/02/21 headache #20 tabs topiramate 25 mg tablet 25 mg PO BID #60 tabs 07/02/21 clonidine HCl 0.1 mg 0.1 mg PO BID PRN hypertension #10 05/17/22 tablet,extended release,12 hr tabs Allergies Allergy/AdvReac Type Severity Reaction Status Date / Time levofloxacin [From Levaquin] Allergy Severe THROAT Verified 02/17/23 15:42 CLOSES Review of Systems 2 Constitutional: Constitutional: Denies chills, Denies fever(s), Denies headache(s) and Denies weakness Eyes: Eyes: Denies change in vision ENT: Denies dizziness and Denies headache(s) Cardiovascular: Cardiovascular: Reports chest pain, Reports chest pain at rest, Denies pedal edema, Denies leg edema, Reports dyspnea and Reports other (palpitations) Respiratory: Respiratory: Denies cough and Reports dyspnea Gastrointestinal: Gastrointestinal: Denies abdominal pain, Denies constipation, Denies diarrhea, Denies nausea and Denies vomiting Musculoskeletal: Musculoskeletal: Reports radiating pain into limb (chest pain radiating to left shoulder) Neurologic: Denies dizziness, Denies headache(s), Denies focal weakness and Denies weakness Psychiatric: Psychiatric: Reports anxiety (hx of anxiety; denies panic attacks) PMFSH Past Medical History Medical History Hypertension Migraine with aura and with status migrainosus Surgical History Hx of appendectomy Hx of cholecystectomy Social History Alcohol intake: current Alcohol intake frequency: holidays/special occasions only Patient Tobacco Use Status: Never used Tobacco Smoked in Last 30 Days: No Use of substances other than those prescribed or required for medical reasons: No Advance Directives: No Advance Directives Information Provided: Yes Advance Directives Date on File: 07/03/21 Patient : No service: No Current occupational status: employed Physical Exam 2 Vital Signs: Vital Signs: Last Vital Signs Temp 98.0 F 02/17/23 18:40 Pulse 64 02/17/23 18:40 Resp 21 H 02/17/23 18:40 BP 144/81 H 02/17/23 18:40 Pulse Ox 100 02/17/23 18:40 O2 Del Method Room Air 02/17/23 18:40 BMI result Body Mass Index 42.1 Const: General: cooperative, comfortable, no acute distress, alert and awake; No diaphoretic Orientation/consciousness: patient oriented x3 Limitations: no limitations HEENT: Head: Yes normocephalic and Yes atraumatic Ears: hearing grossly normal bilaterally General nose exam: Normal external nose present Eyes: General: appearance normal, both eyes and all related structures P upils: Equal, round and reactive pupils present Neck: Neck: Yes normal visual inspection Chest: Chest palpation & inspection: normal inspection of the chest, normal palpation of entire chest wall and no tenderness Resp: Effort & Inspection: normal respiratory effort and able to speak in complete sentences Auscultation: clear to auscultation bilaterally Cardio: Rate: regular rate Rhythm: regular rhythm Heart sounds: S1 normal heart sound present and S2 normal heart sound present GI: Palpation (GI): nontender Neuro: General: patient oriented x3 Cranial nerves: Yes CN's II-XII intact bilaterally and Yes Equal, round and reactive pupils present Motor exam (neuro): 5/5 motor strength present throughout Course Course Course Narrative: RME: 57yo F w/PMHx HLD, Migraines w/aura, c/o substernal /L sided chest pain that radiated to L neck while at rest 1hr [employer]. Admits to continued pain but improved since onset. Admits to assoc lightheadedness & SOB when pain started. Pain worse w/deep breathing. tearful EKG, Labs, CXR, COVID ordered Full HPI, ROS and PE to be performed by primary ED provider. Medical Decision Making Medical Decision Making [facility] Narrative: She 7-year-old female presents for evaluation of chest pain that started at rest. EKG is nonischemic, troponin is negative. Given her symptoms started within 3 hours arrival repeat troponin. If negative, this then she rules out ACS. Patient's D-dimer is negative. Symptoms most consistent with anxiety. Differential Diagnosis Differential Diagnoses: The differential diagnosis associated with the presentation includes (panic attack, STEMI/NSTEMI, unstable angina, costochondritis, GERD) Admission/Observation Consideration of admission/observation: Escalation of care including admission/observation considered Patient complain of chest pain started at rest. Ruled out for ACS Lab Data [facility] Lab Attestation statement: I reviewed the patient's lab results. No leukocytosis or anemia. Patient's sodium is just above normal at 146. CO2 is just above normal at 30 which may be related to undiagnosed sleep apnea. Patient's sugars 173 with no evidence of DKA. Troponin negative, D-dimer negative. 02/17/23 16:09 02/17/23 16:09 Labs: Lab Results 02/17/23 02/17/23 Range/Units 16:09 18:23 WBC 8.1 (4.8-10.8) X10*3/uL RBC 4.41 (4.20-5.50) X10*6/uL Hgb 13.5 (12.0-16.0) g/dl Hct 40.3 (37.0-47.0) % MCV 91.4 (80.0-98.0) fL MCH 30.6 (27.0-33.0) pg MCHC 33.5 (31.0-35.0) g/dl RDW 13.0 (11.0-16.0) % Plt Count 326 (160-400) X10*3/uL MPV 10.2 (9.4-12.3) fL Immature Gran % (Auto) 0.5 H (0.0-0.4) % Neut % (Auto) 51.8 (45-73) % Lymph % (Auto) 38.4 (20-40) % Canadian % (Auto) 6.1 (2-11) % Eos % (Auto) 2.8 (0-4) % Baso % (Auto) 0.4 (0-2) % Lymph # (Auto) 3.1 (1.2-4.9) X10*3/uL [place] # (Auto) 0.5 (0.1-1.2) X10*3/uL Eos # (Auto) 0.2 (0.0-0.4) X10*3/uL Baso # (Auto) 0.0 (0.0-0.2) X10*3/uL Abs Immat Gran (auto) 0.04 H (0.00-0.03) X10*3/uL Absolute Neuts (auto) 4.2 (2.0-8.3) x10*3/uL Absolute Nucleated RBC 0.000 (0.0-0.012) X10*3/uL Nucleated RBC % (auto) 0.0 (0.0-0.2) /100WBC PT 10.5 L (11.1-13.3) SEC INR 0.9 (0.9-1.1) D-Dimer High Sensitivty < 150 NG/ML Sodium 146 H (135-145) mmol/L Potassium 3.5 D (3.3-5.1) mmol/L Chloride 108 (96-108) mmol/L Carbon Dioxide 30 H (22-29) mmol/L Anion Gap 12 (12-20) BUN 15 (9-16) mg/dL Creatinine 0.77 (0.5-1.4) mg/dL Estim Creat Clear Calc 96.0 Estimated GFR > 60 Random Glucose 173 H (60-115) mg/dL Calcium 9.7 (8.4-10.2) mg/dL Magnesium 2.0 (1.6-2.6) mg/dL Total Bilirubin 0.4 (0.0-1.0) mg/dL Direct Bilirubin 0.1 (0.0-0.5) mg/dL AST 22 (5-31) U/L ALT 17 (0-31) U/L Alkaline Phosphatase 60 (39-117) U/L Troponin I High Sens < 2.7 < 2.7 (<3.5-17.0) ng/L B-Natriuretic Peptide 93 (<100) pg/mL Total Protein 6.6 (6.5-8.0) g/dL Albumin 3.7 (3.5-5.0) g/dL COVID-19 ([facility]ENRIQUE) Negative (Negative) COVID-19 Clin Com See Note Independent Interpretation I performed an independent interpretation of an: EKG (Sinus rhythm with a rate of 92 beats per minute. T-wave inversions in lead 3 which are slightly more pronounced when compared to April of 2022.) and Plain X-Ray (No infiltrate) Radiology Impression Discussion of test interpretation with radiology: I have reviewed the radiologist's reading. (No acute pathology and chest x-ray) Discharge Plan Discharge Clinical Impression: Chest pain Patient Disposition: Home, Self-Care Instructions: Chest Pain (ED) Additional Instructions: Your workup in the emergency room today was reassuring. This includes or EKG, chest x-ray and labs. Your symptoms may be related to anxiety Follow-up with your primary doctor Return for new or worsening symptoms Prescriptions: No Action atorvastatin 20 mg tablet 1 tab PO DAILY bupropion HCl 100 mg tablet sustained-release 12 hr 1 tab PO BID valsartan 320 mg tablet 1 tab PO DAILY hydrochlorothiazide 25 mg tablet 1 tab PO DAILY topiramate 25 mg tablet 25 mg PO BID Qty: 60 2RF sumatriptan succinate 50 mg tablet 50 mg PO Q2-4H PRN (Reason: migraine headache) Qty: 20 4RF Rx Instructions: do not exceed 4 doses per 24 hrs clonidine HCl 0.1 mg tablet extended release 12 hr 0.1 mg PO BID PRN (Reason: hypertension) Qty: 10 0RF Rx Instructions: Take 1 tablet twice daily as needed for systolic blood pressure greater than 170 and/or diastolic blood pressure greater than 110.
[2023-02-17 16:13] LABS: MANUAL DIFF FLAG NO
[2023-02-17 16:15] LABS: Basophils Percent Auto 0.4 % (0-2); Eosinophils Absolute Auto 0.2 X10*3/uL (0.0-0.4); Eosinophils Percent Auto 2.8 % (0-4); Hematocrit 40.3 % (37.0-47.0); Hemoglobin 13.5 g/dl (12.0-16.0); Imm Gran Abs Auto 0.04 X10*3/uL (0.00-0.03); Imm Gran Pct Auto 0.5 % (0.0-0.4); Lymphocytes Absolute Auto 3.1 X10*3/uL (1.2-4.9); Lymphocytes Percent Auto 38.4 % (20-40); Mean Corpuscular HGB Conc 33.5 g/dl (31.0-35.0); Mean Corpuscular Hemoglobin 30.6 pg (27.0-33.0); Mean Corpuscular Volume 91.4 fL (80.0-98.0); Mean Platelet Volume 10.2 fL (9.4-12.3); Monocytes Absolute Auto 0.5 X10*3/uL (0.1-1.2); Monocytes Percent Auto 6.1 % (2-11); Neutrophils Absolute Auto 4.2 x10*3/uL (2.0-8.3); Neutrophils Percent Auto 51.8 % (45-73); Platelet Count 326 X10*3/uL (160-400); Red Blood Count 4.41 X10*6/uL (4.20-5.50); White Blood Count 8.1 X10*3/uL (4.8-10.8)
[2023-02-17 16:20] LABS: INTERNATIONAL NORM RATIO 0.9 (0.9-1.1); Prothrombin Time 10.5 SEC (11.1-13.3)
[2023-02-17 16:29] LABS: COVID-19 Test Negative (Negative); IDNOW Serial# BCCEAD1C
[2023-02-17 16:37] LABS: Alanine Aminotransferase 17 U/L (0-31); Albumin Level 3.7 g/dL (3.5-5.0); Alkaline Phosphatase 60 U/L (39-117); Anion Gap 12 (12-20); Aspartate Amino Transferase 22 U/L (5-31); Bilirubin Direct 0.1 mg/dL (0.0-0.5); Bilirubin Total 0.4 mg/dL (0.0-1.0); Blood Urea Nitrogen 15 mg/dL (9-16); Calcium 9.7 mg/dL (8.4-10.2); Carbon Dioxide 30 mmol/L (22-29); Chloride 108 mmol/L (96-108); Estimated Glomerular Filt Rate > 60; Glucose Random 173 mg/dL (60-115); Potassium 3.5 mmol/L (3.3-5.1); Sodium 146 mmol/L (135-145); Total Protein 6.6 g/dL (6.5-8.0)
[2023-02-17 16:39] LABS: B Type Natriuretic Peptide 93 pg/mL (<100)
[2023-02-17 16:44] LABS: Troponin-I High Sensitivity < 2.7 ng/L (<3.5-17.0)
--- OUTSIDE RECORDS SUMMARY | 2023-02-17 16:47 | XMS_ITS | Continuity of Care Document ---
Author Name Unknown Organization [facility] ter Address [address] [place] [address]- Care Team Providers Care Director Of Technology Name Role Phone Not on Staff, PCP Primary Care Physician Unavail able [place] [facility] [place] 04/21/20 - 04/21/[address] [address]- Discharge Disposition: A-D/C Home Attending Physician: Radha Shelton MD Admitting Physician: Radha Shelton MD Referring Physician: Not on Staff, Referring MD Allergies, Adverse Reactions, Alerts Substance Reaction Severity Status hydrOXYzine Levaquin Levaquin Levaquin Levaquin Levaquin Levaquin Active Levaquin Active Immunizations Given and Recorded Vaccine Date Status Refusal Reason influenza virus vaccine, inactivated 02/13/20 Give n Medications atorvastatin 20 mg oral tablet 1 tablet = 20 mg, By Mouth, Daily at bedtime, # 30 tablet, 0 Refills, Maintenance, 02/13/20 14:53:00 EST, Tablet, [facility], Partial fill upon patient request, 160.02, cm, 02/12/2010:43:00 EST, Height, 109.09, kg, 02/12/20 5:29:00 EST,... Start Date: 02/13/20 Status: Ordered hydrochlorothiazide-valsartan 25 mg-320 mg oral tablet 1 tablet, By Mouth, Daily, # 30 tablet, 0 Refills, Maintenance, 02/12/20 4:48:00 EST, Tablet, Partial fill upon patient request Start Date: 02/12/20 Status: Ordered hydrochlorothiazide-valsartan 25 mg-320 mg oral tablet 1 tablet, By Mouth, Daily, # 90 tablet, 0 Refills, Maintenance, 04/21/20 19:36:00 EST, Tablet, [facility], Partial fill upon patient request if the prescription is for a schedule IIopioid drug., 1 tablet By Mouth Daily, 160.02, cm, 01/24... Start Date: 04/21/20 Status: Ordered ZyrTEC 10 mg oral tablet 1 tablet = 10 mg, By Mouth, Daily, # 30 tablet, 0 Refills, Maintenance, 02/12/20 4:49:00 EST, Tablet, Partial fill upon patient request Start Date: 02/12/20 Status: Ordered Vital Signs Most recent to oldest [Reference Range]: 1 2 3 Weight 111.6 kg (04/21/20 3:13 PM) 111.6 kg (04/21/20 3:10 PM) Oxygen Saturation [94-100 %] 100 % (04/21/20 10:08 PM) 100 % (04/21/20 9:45 PM) 100 % (04/21/20 9:15 PM) Pulse Rate [55-90 bpm] 66 bpm (04/21/20 10:08 PM) 67 bpm (04/21/20 9:45 PM) 64 bpm (04/21/20 9:15 PM) Blood Pressure [90-138/55-84 mm Hg] 199/90mm Hg *H* (04/21/20 10:08 PM) 196/97mm Hg *H* (04/21/20 9:45 PM) 192/89mm Hg *H* (04/21/20 9:15 PM) Respiratory Rate [16-30 br/min] 20 br/min (04/21/20 10:08 PM) 18 br/min (04/21/20 9:45 PM) 17 br/min (04/21/20 9:15 PM) Temperature [96.8-100.4 DegF] 97.8 DegF (04/21/20 7:09 PM) 98.9 DegF (04/21/20 3:10 PM) Mode of Delivery (Oxygen) Room air (04/21/20 10:08 PM) Room air (04/21/20 9:45 PM) Room air (04/21/20 9:15 PM) Blood pressure sites Arm, right (04/21/20 7:09 PM) Arm, right (04/21/20 3:10 PM) Temperature Route Oral (04/21/20 7:09 PM) Oral (04/21/20 3:10 PM) Dry Weight 111.6 kg (04/21/20 3:13 PM) 111.6 kg (04/21/20 3:10 PM) Weight Obtained Via Standing scale (04/21/20 3:10 PM) Dry Weight Obtained Via Standing scale (04/21/20 3:10 PM)
--- OUTSIDE RECORDS SUMMARY | 2023-02-17 16:47 | XMS_ITS | Continuity of Care Document ---
Author Name Unknown Organization [facility] ter Address [address] [place] [address]- Care Team Providers Care Garbage Stoker Name Role Phone Toma Robles MD Primary Care Physician [phone] [place] [facility] [place] - 06/27/[address] [address]- Discharge Disposition: A-D/C Home Attending Physician: Reji Amezcua MD Admitting Physician: Reji Amezcua MD Referring Physician: Not on Staff, Referring [...] to oldest [Reference Range]: 1 2 3 Height 160 cm (06/27/20 8:31 AM) 160 cm (06/27/20 8:23 AM) Weight 108 kg (06/27/20 8:31 AM) 108 kg (06/27/20 8:23 AM) Oxygen Saturation [94-100 %] 99 % (06/27/20 3:48 PM) 99 % (06/27/20 1:15 PM) 98 % (06/27/20 8:23 AM) Pulse Rate [55-90 bpm] 72 bpm (06/27/20 3:48 PM) 76 bpm (06/27/20 1:15 PM) 76 bpm (06/27/20 8:23 AM) Body Mass Index [18.5-24.99] 42.19 *>HHI* (06/27/20 8:23 AM) Blood Pressure [90-138/55-84 mm Hg] 148/88mm Hg *H* (06/27/20 3:48 PM) 162/86mm Hg *H* (06/27/20 1:15 PM) 149/89mm Hg *H* (06/27/20 8:23 AM) Respiratory Rate [16-30 br/min] 19 br/min (06/27/20 3:48 PM) 20 br/min (06/27/20 1:15 PM) 18 br/min (06/27/20 8:23 AM) Temperature [96.8-100.4 DegF] 98.3 DegF (06/27/20 3:48 PM) 98.1 DegF (06/27/20 1:15 PM) 98.1 DegF (06/27/20 8:23 AM) Mode of Delivery (Oxygen) Room air (06/27/20 3:48 PM) Room air (06/27/20 1:15 PM) Room air (06/27/20 8:23 AM) Blood pressure sites Arm, right (06/27/20 3:48 PM) Arm, right (06/27/20 1:15 PM) Arm, right (06/27/20 8:23 AM) Temperature Route Oral (06/27/20 3:48 PM) Oral (06/27/20 1:15 PM) Oral (06/27/20 8:23 AM) Dry Weight 108 kg (06/27/20 8:31 AM) 108 kg (06/27/20 8:23 AM)
--- OUTSIDE RECORDS SUMMARY | 2023-02-17 16:47 | XMS_ITS | Continuity of Care Document ---
Author Name Unknown Organization [facility] Address [address] [place] [address]- Care Team Providers Care Global Upstream Marketing Manager Name Role Phone Margaret OVIEDO, Toma Shell Primary Care Physician Encounter [facility] [place] Date(s): 01/11/21 - 02/10/[address] [address] Attending Physician: Admulysses, [id number] Admitting Physician: [id number] Referring Physician: Admtr, [id number] Allergies, Adverse Reactions, Alerts Substance Reaction Severity [...]
--- OUTSIDE RECORDS SUMMARY | 2023-02-17 16:47 | XMS_ITS | Continuity of Care Document ---
Author Name Unknown Organization [facility] Address [address] [place] [address]- Care Team Providers Care Record Tabulating Clerk Name Role Phone Toma Robles MD Primary Care Physician [phone] [place] [facility] [place] 07/10/22 - 08/09/[address] [address] Allergies, Adverse Reactions, Alerts Substance Reaction Severity [...] 1 tablet By Mouth Daily, 160.02, cm, 2... Start Date: 04/21/20 Status: Ordered ZyrTEC 10 mg oral tablet 1 tablet = 10 mg, By Mouth, Daily, # 30 tablet, 0 Refills, Maintenance, 02/12/20 4:49:00 EST, Tablet, Partial fill upon patient request Start Date: 02/12/20 Status: Ordered Patient Care team information Care Team Personnel Name: Toma Robles MD Position: [facility] Outreach Member Role: PCP Address: Address: [address] [place] [address] [address] [place] [address]- Care Team Related Persons Name: ALEC BARNES Address: home [address] [place] [address] Name: ABDELRAHMAN MATIAS Address: home [address] [place] [address] Name: LEXA MARTIN Address: [place] [address]
--- OUTSIDE RECORDS SUMMARY | 2023-02-17 16:47 | XMS_ITS | Continuity of Care Document ---
Author Name Unknown Organization [facility] ter Address [address] [place] [address]- Care Team Providers Care Cabinet And Trim Installer Name Role Phone Bobby OVIEDO, Pierce Anderson Primary Care Physician [place] [facility] [place](s[place] 04/10/19 - 04/10/[address] [address]- [facility] Encounter Diagnosis HTN (hypertension)(Final) - 04/10/19 Noncompliance with medication regimen(Final) - 04/10/19 Acute URI(Final) - 04/10/19 Discharge Disposition: A-D/C Home Attending Physician: Alfonzo Vidal MD Admitting Physician: Alfonzo Vidal MD Referring Physician: Not on Staff, Referring MD Allergies, Adverse Reactions, Alerts Substance Reaction Severity Status hydrOXYzine Levaquin Levaquin Levaquin Levaquin Levaquin Levaquin Active Levaquin Active Medications Amlodipine By Mouth, Daily, Maintenance, 09/17/14 10:48:30 Start Date: 09/17/14 Status: Ordered Hydrochlorothiazide By Mouth, Daily, 0 Refills, Maintenance, 09/17/14 10:49:08 Start Date: 09/17/14 Status: Ordered hydroCHLOROthiazide 12.5 mg oral capsule 1 capsule = 12.5 mg, By Mouth, Daily, # 30 capsule, 0 Refills, Maintenance, 04/10/19 16:18:00 EST, Capsule Start Date: 04/10/19 Stop Date: 05/10/19 Status: Ordered Meclizine By Mouth, 3 times a day, 0 Refills, Maintenance, 09/17/14 10:44:57 Start Date: 09/17/14 Status: Ordered Motrin 800 mg oral tablet 800, mg, 1, tablet, By Mouth, Every 8 hours, Scheduled / PRN, 42, tablet, 1, 1, 12/24/05 11:58:25, as needed for pain, with food or milk, extended daily intake may increase risk heart/stroke problems, Print BROCK Number, [facility]... Start Date: 12/24/05 Stop Date: 01/21/06 Status: Ordered Venlafaxine By Mouth, 0 Refills, Maintenance, 09/17/14 10:50:44 Start Date: 09/17/14 Status: Ordered Vicodin 500 mg-5 mg oral tablet 1, tablet, By Mouth, Every 4 hours, Scheduled / PRN, 42, tablet, 0, 0, 12/24/05 12:00:05, as neededfor pain, Print BROCK Number, ADS [id number], [facility] [address] [place] [address], 51 Start Date: 12/24/05 Stop Date: 12/31/05 Status: Ordered Vital Signs Most recent to oldest [Reference Range]: 1 2 3 Oxygen Saturation [94-100 %] 99 % (04/10/19 3:07 PM) 97 % (04/10/19 1:16 PM) 97 % (04/10/19 12:26 PM) Pulse Rate [55-90 bpm] 77 bpm (04/10/19 3:07 PM) 83 bpm (04/10/19 1:16 PM) 91 bpm *H* (04/10/19 12:26 PM) Blood Pressure [90-138/55-84 mm Hg] 192/88mm Hg *H* (04/10/19 3:07 PM) 195/101mm Hg *H* (04/10/19 1:16 PM) 192/116mm Hg *H* (04/10/19 12:26 PM) Respiratory Rate [16-30 br/min] 17 br/min (04/10/19 3:07 PM) 17 br/min (04/10/19 1:16 PM) 17 br/min (04/10/19 12:26 PM) Temperature [96.8-100.4 DegF] 98.4 DegF (04/10/19 12:26 PM) Mode of Delivery (Oxygen) Room air (04/10/19 3:07 PM) Room air (04/10/19 1:16 PM) Room air (04/10/19 12:26 PM) Temperature Route Oral (04/10/19 12:26 PM)
--- OUTSIDE RECORDS SUMMARY | 2023-02-17 16:47 | XMS_ITS | Continuity of Care Document ---
Author Name Unknown Organization [facility] Address [address] [place] [address]- Care Team Providers Care Rolling Chair Pusher Name Role Phone Toma Robles MD Primary Care Physician [phone] Encounter [facility] [place] Date(s): 10/04/20 - 03/05/[address] [address]- Discharge Disposition: A-D/C Home Attending Physician: Juan Robles MD Admitting Physician: Juan Robles MD Referring Physician: Omar Tejeda MD Allergies, Adverse Reactions, Alerts Substance Reaction [...]
[2023-02-17 17:38] LABS: D Dimer High Sensitivity < 150 NG/ML
[2023-02-17 18:40] VITALS: BP 144/81; PULSE 64; RESP 21; TEMP 36.7; O2SAT 100
[2023-02-17 18:52] LABS: Troponin-I High Sensitivity < 2.7 ng/L (<3.5-17.0)
== END 2023-02-17 19:11 | disposition home or self-care (01) ==
PROVIDERS: Physician Assistant; Emergency Provider Internal Medicine; PCP Internal Medicine
DX: R07.89 Other chest pain (principal); M25.512 Pain in left shoulder; F41.1 Generalized anxiety disorder; M54.2 Cervicalgia; R06.02 Shortness of breath; Z11.52 Encounter for screening for COVID-19; Z20.822 Contact with and (suspected) exposure to COVID-19; Z79.899 Other long term (current) drug therapy
CPT/HCPCS: 36415; 71045; 80048; 80076; 83735; 83880; 84484; 85025; 85379; 85610; 87635; 93005; 99283; 99285

== ENCOUNTER 2023-09-02 14:45 | Emergency (ER) | payer BC, SELFPAY ==
--- NOTE | ~2023-09-02 | XR_ITS ---
EXAMINATION: XR CHEST CLINICAL INFORMATION: Shortness of breath COMPARISON: 02/17/2023 TECHNIQUE: 2 views of the chest were obtained. FINDINGS: No significant abnormality is noted involving the heart, lungs, mediastinum, bony thorax or soft tissues. Status post cholecystectomy. XR/XR chest 2V IMPRESSION: Unremarkable examination.
[2023-09-02 14:49] VITALS: BP 119/63; PULSE 89; RESP 20; TEMP 37.6; O2SAT 99; BMI 40.0
--- NOTE | 2023-09-02 14:52 | ECG_ITS ---
Test Reason : SOB Blood Pressure : / mmHG Vent. Rate : 069 BPM Atrial Rate : 069 BPM P-R Int : 156 ms QRS Dur : 096 ms QT Int : 414 ms P-R-T Axes : 014 005 020 degrees QTc Int : 443 ms Normal sinus rhythm Inferior infarct (cited on or before 02-SEP-2023) Cannot rule out Anterior infarct , age undetermined Abnormal ECG When compared with ECG of 17-FEB-2023 15:17, No significant changes seen Referred By: Generic ED Physician Electronically Signed By:LI CATALAN
--- NOTE | 2023-09-02 14:53 | ED_ITS ---
HPI - General Adult General Chief complaint: Dyspnea Stated complaint: Diff breathing Time Seen by Provider: 09/02/23 20:56 Source: patient Mode of arrival: ambulatory History of Present Illness ED Provider: Dr Marcus HPI narrative: 58-year-old female with history of hypertension, occasional glass of wine, not a smoker, comes in with a few days of shortness of breath, states that she can not walk farther than 10 ft without becoming short of breath, denies any lower extremity swelling denies history of COPD/asthma states that she had COVID-19 in April and denies any recent travel. Related Data Home Medications ?Medication ?Instructions ?Recorded ?Confirmed atorvastatin 20 mg tablet 1 tab PO DAILY 07/01/21 07/01/21 bupropion HCl 100 mg tablet,12 hr 1 tab PO BID 07/01/21 07/01/21 sustained-release hydrochlorothiazide 25 mg tablet 1 tab PO DAILY 07/01/21 07/01/21 valsartan 320 mg tablet 1 tab PO DAILY 07/01/21 07/01/21 Previous Rx's ?Medication ?Instructions ?Recorded sumatriptan succinate 50 mg tablet 50 mg PO Q2-4H PRN migraine 07/02/21 headache #20 tabs topiramate 25 mg tablet 25 mg PO BID #60 tabs 07/02/21 clonidine HCl 0.1 mg 0.1 mg PO BID PRN hypertension #10 05/17/22 tablet,extended release,12 hr tabs Allergies Allergy/AdvReac Type Severity Reaction Status Date / Time levofloxacin [From Levaquin] Allergy Severe THROAT Verified 09/02/23 14:51 CLOSES Review of Systems 2 Review of Systems: Pertinent positives and negatives as stated in [facility] Past Medical History Source: nursing notes reviewed Medical History Migraine with aura and with status migrainosus Hypertension Surgical History Hx of appendectomy Hx of cholecystectomy Social History Social History Alcohol intake: current Alcohol intake frequency: holidays/special occasions only Patient Tobacco Use Status: Never used Tobacco Advance Directives: No Advance Directives Information Provided: Yes Advance Directives Date on File: 07/03/21 service: No Current occupational status: employed Physical Exam ED Vital Signs: Vital Signs - 24 hr 09/02/23 14:49 09/02/23 20:21 09/02/23 20:51 Temperature 99.7 F 97.6 F 97.9 F Pulse Rate 89 71 76 Respiratory Rate 20 18 18 Blood Pressure 119/63 124/82 128/80 Pulse Oximetry 99 100 99 Oxygen Delivery Method Room Air Room Air Room Air 09/02/23 23:54 Temperature 97.9 F Pulse Rate 87 Respiratory Rate 16 Blood Pressure 134/85 Pulse Oximetry 100 Oxygen Delivery Method Room Air BMI result Body Mass Index 40.0 VITAL SIGNS: Reviewed. GENERAL: Well developed, well nourished, in no acute distress. HEAD: Normocephalic/atraumatic EYES: PERRLA, EOMI EARS: Ext canals without abnormality NOSE: Nares patent bilateral OROPHARYNX: no oral lesions noted, posterior pharynx clear NECK: Supple, no adenopathy LUNGS: Normal breath sounds. No adventitious sounds or accessory muscle use. SpO2<99> CARDIOVASCULAR: Regular rate and rhythm without noted murmurs ABDOMEN: Soft, non-tender, non-distended with bowel sounds. MUSCULOSKELETAL: No tenderness, deformities, or effusions noted on gross inspection. EXTREMITIES: No cyanosis, clubbing or edema. SKIN: Inspection of the skin reveals no rashes NEUROLOGIC: Alert and oriented x 4. Strength and sensation to light touch were grossly intact x 4. Course Course Course Narrative: RME performed by Sarina Alexis PA-C. Patient is a 58 year old assigned female at presenting to the emergency department with shortness of breath. Patient states over the last day she has had significantly worse shortness of breath worse with ambulation. Detailed physical exam and review of systems are deferred to the care clinician. EKG, labs, imaging, and swabs ordered. Patient placed back in the waiting room pending room availability and results. Medications Administered Discontinued Medications Generic Name Dose Route Start Last Admin Trade Name Freq PRN Reason Stop Dose Admin Albuterol Sulfate 2 puff 09/03/23 00:28 09/03/23 00:56 Albuterol Sulfate 90 Mcg 8 Gm Inhaler INHALE 09/03/23 00:29 2 puff ONCE ONE Administration Medical Decision Making Medical Decision Making MDM Narrative: 58-year-old female with history and clinical presentation, DDX: CHF, viral illness, lower clinical suspicion for pneumonia/PE/ACS I reviewed all investigations and hematologic indices are negative for leukocytosis/anemia/thrombocytopenia. Coagulation studies are within normal limits and D-dimer is undetectable. Chemistry indices demonstrates an ELEONORA but no evidence to suggest elevated high sensitivity troponin or BNP. There is no evidence on clinical exam or chest x-ray to suggest venous congestion. Viral testing is negative for influenza/COVID-19. Chest x-ray also not significant for infiltrate. Tried patient with some Ventolin as well as an ambulation test, oxygenation remained 98-100%. Patient is feeling improved. Differential Diagnosis Differential Diagnoses: The differential diagnosis associated with the presentation includes Please see the discussion above Admission/Observation Consideration of admission/observation: Escalation of care including admission/observation considered Please see the discussion above Lab Data MDM Lab Attestation statement: I reviewed the patient's lab results. Please see the discussion above 09/02/23 15:25 09/02/23 15:24 Labs: Lab Results 09/02/23 09/02/23 09/02/23 Range/Units 15:24 15:25 19:08 WBC 10.8 (4.8-10.8) X10*3/uL RBC 5.06 (4.20-5.50) X10*6/uL Hgb 15.3 (12.0-16.0) g/dl Hct 45.1 (37.0-47.0) % MCV 89.1 (80.0-98.0) fL MCH 30.2 (27.0-33.0) pg MCHC 33.9 (31.0-35.0) g/dl RDW 13.4 (11.0-16.0) % Plt Count 369 (160-400) X10*3/uL MPV 10.4 (9.4-12.3) fL Immature Gran % (Auto) 0.3 (0.0-0.4) % Neut % (Auto) 58.5 (45-73) % Lymph % (Auto) 32.3 (20-40) % [place] % (Auto) 8.1 (2-11) % Eos % (Auto) 0.5 (0-4) % Baso % (Auto) 0.3 (0-2) % Lymph # (Auto) 3.5 (1.2-4.9) X10*3/uL [place] # (Auto) 0.9 (0.1-1.2) X10*3/uL Eos # (Auto) 0.1 (0.0-0.4) X10*3/uL Baso # (Auto) 0.0 (0.0-0.2) X10*3/uL Abs Immat Gran (auto) 0.03 (0.00-0.03) X10*3/uL Absolute Neuts (auto) 6.3 (2.0-8.3) x10*3/uL Absolute Nucleated RBC 0.000 (0.0-0.012) X10*3/uL Nucleated RBC % (auto) 0.0 (0.0-0.2) /100WBC PT 11.5 (11.1-13.3) SEC INR 0.9 (0.9-1.1) APTT 32.0 (26.0-36.8) SEC D-Dimer High Sensitivty < 150 NG/ML Sodium 133 L (135-145) mmol/L Potassium 3.7 (3.3-5.1) mmol/L Chloride 101 (96-108) mmol/L Carbon Dioxide 21 L (22-29) mmol/L Anion Gap 15 (12-20) BUN 30 H (9-16) mg/dL Creatinine 1.57 H (0.5-1.4) mg/dL Estim Creat Clear Calc 45.1 Estimated GFR 34 Random Glucose 98 (60-115) mg/dL Calcium 10.7 H D (8.4-10.2) mg/dL Magnesium 2.0 (1.6-2.6) mg/dL Total Bilirubin 0.6 (0.0-1.0) mg/dL AST 20 (5-31) U/L ALT 19 (0-31) U/L Alkaline Phosphatase 62 (39-117) U/L Troponin I High Sens < 2.7 (<3.5-17.0) ng/L B-Natriuretic Peptide < 10 (<100) pg/mL Total Protein 7.9 (6.5-8.0) g/dL Albumin 4.5 (3.5-5.0) g/dL COVID-19 (HENRIQUE) (Negative) COVID-19 Clin Com Influenza Type A (JUANITA) (Negative) Influenza Type A (PCR) TNP Influenza Type B (JUANITA) (Negative) Influenza Type B (PCR) TNP Influenza A & B Note RSV RNA Qual (PCR) TNP SARS-CoV-2 RNA (RT-PCR) TNP 09/02/23 09/02/23 Range/Units 22:31 22:33 WBC (4.8-10.8) X10*3/uL RBC (4.20-5.50) X10*6/uL Hgb (12.0-16.0) g/dl Hct (37.0-47.0) % MCV (80.0-98.0) fL MCH (27.0-33.0) pg MCHC (31.0-35.0) g/dl RDW (11.0-16.0) % Plt Count (160-400) X10*3/uL MPV (9.4-12.3) fL Immature Gran % (Auto) (0.0-0.4) % Neut % (Auto) (45-73) % Lymph % (Auto) (20-40) % [place] % (Auto) (2-11) % Eos % (Auto) (0-4) % Baso % (Auto) (0-2) % Lymph # (Auto) (1.2-4.9) X10*3/uL [place] # (Auto) (0.1-1.2) X10*3/uL Eos # (Auto) (0.0-0.4) X10*3/uL Baso # (Auto) (0.0-0.2) X10*3/uL Abs Immat Gran (auto) (0.00-0.03) X10*3/uL Absolute Neuts (auto) (2.0-8.3) x10*3/uL Absolute Nucleated RBC (0.0-0.012) X10*3/uL Nucleated RBC % (auto) (0.0-0.2) /100WBC PT (11.1-13.3) SEC INR (0.9-1.1) APTT (26.0-36.8) SEC D-Dimer High Sensitivty NG/ML Sodium (135-145) mmol/L Potassium (3.3-5.1) mmol/L Chloride (96-108) mmol/L Carbon Dioxide (22-29) mmol/L Anion Gap (12-20) BUN (9-16) mg/dL Creatinine (0.5-1.4) mg/dL Estim Creat Clear Calc Estimated GFR Random Glucose (60-115) mg/dL Calcium (8.4-10.2) mg/dL Magnesium (1.6-2.6) mg/dL Total Bilirubin (0.0-1.0) mg/dL AST (5-31) U/L ALT (0-31) U/L Alkaline Phosphatase (39-117) U/L Troponin I High Sens (<3.5-17.0) ng/L B-Natriuretic Peptide (<100) pg/mL Total Protein (6.5-8.0) g/dL Albumin (3.5-5.0) g/dL COVID-19 (HENRIQUE) Negative (Negative) COVID-19 Clin Com See Note Influenza Type A (JUANITA) Negative (Negative) Influenza Type A (PCR) Influenza Type B (JUANITA) Negative (Negative) Influenza Type B (PCR) Influenza A & B Note See Note RSV RNA Qual (PCR) SARS-CoV-2 RNA (RT-PCR) Independent Interpretation I performed an independent interpretation of an: EKG Interpretation: Sinus rhythm, HR-69, no STEMI, [place]/QRS/QTC is within normal limits. Radiology Impression Discussion of test interpretation with radiology: I have reviewed the radiologist's reading. Radiologist Impression: Please see the discussion above External Record Review External record reviewed: Outpatient record and Prior outpatient labs Chronic Conditions Patient?s care impacted by: Hypertension Critical Care Time Critical Care Time Critical Care Time: Yes Total Critical Care Time: 45 Attestation: I personally attest to this time spent taking care of the patient. Discharge Plan Discharge Clinical Impression: Dyspnea, ELEONORA (acute kidney injury) Patient Disposition: Home, Self-Care Instructions: Dyspnea (ED) Additional Instructions: 1. Resume all home medications as prescribed. Increase the amount of water intake as your medications may be affecting your kidneys. 2. I highly recommend follow-up with your primary care doctor in the next 2-3 days for further outpatient evaluation of your symptoms, there is no evidence of pneumonia or fluid overload or cardiac injury in your investigation today. You will need to discuss possible medication adjustment given your kidney function. Return to the ER for any worsening symptoms. Prescriptions: No Action atorvastatin 20 mg tablet 1 tab PO DAILY bupropion HCl 100 mg tablet sustained-release 12 hr 1 tab PO BID valsartan 320 mg tablet 1 tab PO DAILY hydrochlorothiazide 25 mg tablet 1 tab PO DAILY topiramate 25 mg tablet 25 mg PO BID Qty: 60 2RF sumatriptan succinate 50 mg tablet 50 mg PO Q2-4H PRN (Reason: migraine headache) Qty: 20 4RF Rx Instructions: do not exceed 4 doses per 24 hrs clonidine HCl 0.1 mg tablet extended release 12 hr 0.1 mg PO BID PRN (Reason: hypertension) Qty: 10 0RF Rx Instructions: Take 1 tablet twice daily as needed for systolic blood pressure greater than 170 and/or diastolic blood pressure greater than 110. Referrals: Pierce Rosales MD [Primary Care Provider] - Print Language: Vietnamese
--- OUTSIDE RECORDS SUMMARY | 2023-09-02 15:21 | XMS_ITS | Continuity of Care Document ---
Author Organization [facility] Address [address] [facility], [address] Floor, [address] [place] [address]- Care Team Providers Care Roentgenology Teacher Name Role Phone Toma Robles MD Primary Care Physician Encounter [facility] [place] Date(s): 04/10/23 - 05/10/23 [facility] [address], [address], [address] [place] [address]- Allergies, Adverse Reactions, Alerts Substance Reaction Severity [...] Team Personnel Name: Toma Robles MD Position: [facility] Outreach Member Role: PCP Address: Address: [address] [place] [address] [address] [place] [address]- Care Team Related Persons Name: ALEC BARNES Address: home [address] [place] [address] Name: ABDELRAHMAN MATIAS Address: home [address] [place] [address] Name: LEXA MARTIN Address: [place] [address]
[2023-09-02 15:29] LABS: MANUAL DIFF FLAG NO
[2023-09-02 15:36] LABS: Basophils Percent Auto 0.3 % (0-2); Eosinophils Absolute Auto 0.1 X10*3/uL (0.0-0.4); Eosinophils Percent Auto 0.5 % (0-4); Hematocrit 45.1 % (37.0-47.0); Hemoglobin 15.3 g/dl (12.0-16.0); Imm Gran Abs Auto 0.03 X10*3/uL (0.00-0.03); Imm Gran Pct Auto 0.3 % (0.0-0.4); Lymphocytes Absolute Auto 3.5 X10*3/uL (1.2-4.9); Lymphocytes Percent Auto 32.3 % (20-40); Mean Corpuscular HGB Conc 33.9 g/dl (31.0-35.0); Mean Corpuscular Hemoglobin 30.2 pg (27.0-33.0); Mean Corpuscular Volume 89.1 fL (80.0-98.0); Mean Platelet Volume 10.4 fL (9.4-12.3); Monocytes Absolute Auto 0.9 X10*3/uL (0.1-1.2); Monocytes Percent Auto 8.1 % (2-11); Neutrophils Absolute Auto 6.3 x10*3/uL (2.0-8.3); Neutrophils Percent Auto 58.5 % (45-73); Platelet Count 369 X10*3/uL (160-400); Red Blood Count 5.06 X10*6/uL (4.20-5.50); Red Cell Distribution Width 13.4 % (11.0-16.0); White Blood Count 10.8 X10*3/uL (4.8-10.8)
[2023-09-02 15:54] LABS: Alanine Aminotransferase 19 U/L (0-31); Albumin Level 4.5 g/dL (3.5-5.0); Alkaline Phosphatase 62 U/L (39-117); Anion Gap 15 (12-20); Aspartate Amino Transferase 20 U/L (5-31); Bilirubin Total 0.6 mg/dL (0.0-1.0); Blood Urea Nitrogen 30 mg/dL (9-16); Calcium 10.7 mg/dL (8.4-10.2); Carbon Dioxide 21 mmol/L (22-29); Chloride 101 mmol/L (96-108); Creatinine Clr Calc Pharmacy 45.1; Estimated Glomerular Filt Rate 34; Glucose Random 98 mg/dL (60-115); Potassium 3.7 mmol/L (3.3-5.1); Sodium 133 mmol/L (135-145); Total Protein 7.9 g/dL (6.5-8.0)
[2023-09-02 16:01] LABS: B Type Natriuretic Peptide < 10 pg/mL (<100)
[2023-09-02 16:12] LABS: Troponin-I High Sensitivity < 2.7 ng/L (<3.5-17.0)
[2023-09-02 19:24] LABS: INTERNATIONAL NORM RATIO 0.9 (0.9-1.1); Prothrombin Time 11.5 SEC (11.1-13.3)
[2023-09-02 20:21] VITALS: BP 124/82; PULSE 71; RESP 18; TEMP 36.4; O2SAT 100
[2023-09-02 20:51] VITALS: BP 128/80; PULSE 76; RESP 18; TEMP 36.6; O2SAT 99
[2023-09-02 21:48] LABS: D Dimer High Sensitivity < 150 NG/ML
[2023-09-02 23:10] LABS: COVID-19 Test Negative (Negative); IDNOW Serial# 08D9AD1C
[2023-09-02 23:10] LABS: IDNOW Serial# 152EDE1D; Influenza A Negative (Negative); Influenza B2 Negative (Negative)
--- NOTE | 2023-09-02 23:53 | MHC.EDTECH ---
Per Provider request ambulation trial done ,Patient 02 sat was maintaining between 98-100 % on room air ,Provider and RN aware .
[2023-09-02 23:54] VITALS: BP 134/85; PULSE 87; RESP 16; TEMP 36.6; O2SAT 100
[2023-09-03] MEDS: Albuterol Sulfate 90 MCG 8 GM INHALER 2 PUFF INHALE (00:56)
[2023-09-03 01:11] VITALS: BP 134/85; PULSE 87; RESP 18; TEMP 36.6; O2SAT 100
== END 2023-09-03 01:12 | disposition home or self-care (01) ==
PROVIDERS: Physician Assistant Medical; Emergency Provider Student in an Organized Health Care Education/Training Program; PCP Internal Medicine
DX: N17.9 Acute kidney failure, unspecified (principal); R06.00 Dyspnea, unspecified; I10 Essential (primary) hypertension; Z11.52 Encounter for screening for COVID-19
CPT/HCPCS: 0241U; 71046; 80053; 83735; 83880; 84484; 85025; 85379; 85610; 85730; 87502; 87635; 93005; 99284

== ENCOUNTER → 2023-09-02 14:52 | Outpatient (BNV) | payer BC, SELFPAY | PROVIDERS: Emergency Provider Student in an Organized Health Care Education/Training Program; PCP Internal Medicine; Visit Provider Internal Medicine | DX: R94.31 Abnormal electrocardiogram [ECG] [EKG] (principal) | CPT/HCPCS: 93010 ==

== ENCOUNTER 2024-06-28 13:41 | Emergency (ER) | payer BC, SELFPAY ==
--- NOTE | ~2024-06-28 | XR_ITS ---
CLINICAL HISTORY: chest pain 2 view chest x-ray Comparison: CR/GA/SR - XR CHEST 2V - 09/02/23 15:30 EDT Findings: No consolidation or effusion. Normal size heart. No acute fracture. IMPRESSION: 1. No acute findings. This document has been electronically signed by: Soo Carrillo MD on 06/28/2024 14:41:37
--- NOTE | 2024-06-28 13:43 | ECG_ITS ---
Test Reason : cp Blood Pressure : */* mmHG Vent. Rate : 78 BPM Atrial Rate : 78 BPM P-R Int : 166 ms QRS Dur : 102 ms QT Int : 396 ms P-R-T Axes : 35 -3 5 degrees QTcB Int : 451 ms Normal sinus rhythm Minimal voltage criteria for LVH, may be normal variant ( R in aVL ) Possible Anterolateral infarct (cited on or before 17-May-2022) Abnormal ECG When compared with ECG of 02-Sep-2023 14:56, Fusion complexes are no longer Present Referred By: Sarina Alexis Electronically Signed By: Abiodun Barrera
[2024-06-28 13:55] VITALS: BP 166/76; PULSE 90; RESP 16; TEMP 36.6; O2SAT 99; BMI 41.2
--- NOTE | 2024-06-28 13:57 | ED.GENADULT ---
HPI - General Adult General Chief complaint: Chest Pain Stated complaint: chest pain Time Seen by Provider: 06/28/24 15:00 Source: patient Mode of arrival: ambulatory Limitations: no limitations History of Present Illness ED Provider: DR. Lee HPI narrative: This is a 59-year-old female came in for evaluation of chest pain, palpitation, shortness of breath since last night, symptoms has been intermittent was resolved then started to feel same symptoms in the morning and it has been constant since then, no recent travel, no recent prolonged immobilization, no lower extremity swelling or tenderness, no history of PE or DVT. Pain feels like tightness in the mid chest with no radiation, no other associated symptoms, pain is happening at rest, no clear aggravating factor or relieving factor. No fever, no chills. Related Data Home Medications ?Medication ?Instructions ?Recorded ?Confirmed atorvastatin 20 mg tablet 1 tab PO DAILY 07/01/21 07/01/21 bupropion HCl 100 mg tablet,12 hr 1 tab PO BID 07/01/21 07/01/21 sustained-release hydrochlorothiazide 25 mg tablet 1 tab PO DAILY 07/01/21 07/01/21 valsartan 320 mg tablet 1 tab PO DAILY 07/01/21 07/01/21 Previous Rx's ?Medication ?Instructions ?Recorded sumatriptan succinate 50 mg tablet 50 mg PO Q2-4H PRN migraine 07/02/21 headache #20 tabs topiramate 25 mg tablet 25 mg PO BID #60 tabs 07/02/21 clonidine HCl 0.1 mg 0.1 mg PO BID PRN hypertension #10 05/17/22 tablet,extended release,12 hr tabs Allergies Allergy/AdvReac Type Severity Reaction Status Date / Time levofloxacin [From Levaquin] Allergy Severe THROAT Verified 06/28/24 13:56 CLOSES Review of Systems Review of Systems: All other systems are reviewed and are negative Constitutional: Reports as per HPI and Reports no additional constitutional complaints Eyes: Reports as per HPI and Reports no additional eye complaints Reports system reviewed and no additional complaints, except as documented Cardiovascular: Reports as per HPI and Reports no additional cardiovascular complaints Respiratory: Reports as per HPI and Reports no additional respiratory complaints Gastrointestinal: Reports as per HPI and Reports no additional gastrointestinal complaints Genitourinary: Reports no additional female genitourinary complaints Musculoskeletal: Reports no additional musculoskeletal complaints Skin/Breast: Reports system reviewed and no additional complaints, except as docu Psychiatric: Reports no additional psychiatric complaints Endocrine: Reports no additional endocrine complaints Hematologic/Lymphatic: Reports no additional hematologic/lymphatic complaints Allergic/Immunologic: Reports no additional allergic/immunologic complaints Reports system reviewed and no additional complaints, except as documented and Reports Abnormal speech present [facility] Past Medical History Medical History Migraine with aura and with status migrainosus Hypertension Surgical History Hx of appendectomy Hx of cholecystectomy Social History Social History Alcohol intake: never Patient Tobacco Use Status: Never used Tobacco Smoked in Last 30 Days: No Use of substances other than those prescribed or required for medical reasons: No Advance Directives: No Advance Directives Information Provided: Yes Advance Directives Date on File: 07/03/21 Do you have a plan to hurt others: No Plan Patient : No service: No Current occupational status: employed Physical Exam ED Vital Signs: Vital Signs - 24 hr 06/28/24 13:55 06/28/24 15:07 Temperature 97.8 F 98.2 F Pulse Rate 90 68 Respiratory Rate 16 18 Blood Pressure 166/76 H 146/81 H Pulse Oximetry 99 98 Oxygen Delivery Method Room Air Room Air BMI result Body Mass Index 41.2 Vital signs have been reviewed and appear to be correct. Blood pressure elevated. Heart rate normal. Respiratory rate normal. Temperature normal. Oxygen saturation normal. Appearance: Anxious, Alert. Oriented X3. No acute distress. Head: Normal external exam. Normocephalic. Atraumatic. No Guevara signs noted. No raccoon eyes noted Eyes: PERRLA. EOMI. Conjunctiva and sclera normal. Eyelids normal. ENT: TM's Normal. Pharynx normal. Uvula midline. Moist mucous membranes. No trismus noted. No drooling noted. No muffled voice noted. Neck: Normal inspection. Neck supple. FROM. No adenopathy. Thyroid Normal. No meningeal signs. No neck mass noted. CVS: Normal heart rate and rhythm. Heart sound normal. No murmurs noted. Pulses normal throughout. Respiratory: No respiratory distress. Painless inspiration. Breath sounds normal. No wheezes/rales/rhonchi noted. Chest nontender. No accessory muscle usage noted or decreased air movement noted. Abdomen: Soft and nontender. Bowel sounds normal in all 4 quadrants. No distention noted. No organomegaly noted. No visible injury noted. Back: No CVA tenderness. Full range of motion noted. Skin: Skin warm and dry. Normal skin color. Normal skin turgor. No rashes/lesions/lacerations noted. Extremities: No lower extremity edema. Extremities exhibit normal range of motion. Extremities nontender. Neuro: Oriented X 3. Cranial nerve exam: II-XII are grossly intact No motor deficit. No sensory deficit. Reflexes normal. Course Course Course Narrative: RME performed by Sarina Alexis PA-C. Patient is a 59 year old assigned female at presenting to the emergency department with chest pain and shortness of breath. Patient states it started last night and has not improved or resolved. Detailed physical exam and review of systems are deferred to the fire controlman. EKG, labs, imaging, and swabs ordered. Patient placed back in the waiting room pending room availability and results. Reevaluation(s) Reevaluation #1: Chest pain and palpitation since last night, no risk for pulmonary embolism with negative D-dimer, EKG with no ischemic change and unchanged from previous with normal troponin x2. Time: 16:15 Medical Decision Making Differential Diagnosis Differential Diagnoses: The differential diagnosis associated with the presentation includes (Pneumonia, pneumothorax, pleural effusion, pulmonary embolism, ACS, chest wall pain, severe anemia, electrolyte derangement.) Admission/Observation Consideration of admission/observation: Escalation of care including admission/observation considered Lab Data MDM Lab Attestation statement: I reviewed the patient's lab results. 06/28/24 14:06 06/28/24 14:06 Labs: Lab Results 06/28/24 Range/Units 14:06 WBC 8.4 (4.8-10.8) X10*3/uL RBC 4.65 (4.20-5.50) X10*6/uL Hgb 14.2 (12.0-16.0) g/dl Hct 42.1 (37.0-47.0) % MCV 90.5 (80.0-98.0) fL MCH 30.5 (27.0-33.0) pg MCHC 33.7 (31.0-35.0) g/dl RDW 13.1 (11.0-16.0) % Plt Count 340 (160-400) X10*3/uL MPV 10.5 (9.4-12.3) fL Immature Gran % (Auto) 0.2 (0.0-0.4) % Neut % (Auto) 43.6 L (45-73) % Lymph % (Auto) 46.2 H (20-40) % Foster % (Auto) 8.3 (2-11) % Eos % (Auto) 1.3 (0-4) % Baso % (Auto) 0.4 (0-2) % Lymph # (Auto) 3.9 (1.2-4.9) X10*3/uL Foster # (Auto) 0.7 (0.1-1.2) X10*3/uL Eos # (Auto) 0.1 (0.0-0.4) X10*3/uL Baso # (Auto) 0.0 (0.0-0.2) X10*3/uL Abs Immat Gran (auto) 0.02 (0.00-0.03) X10*3/uL Absolute Neuts (auto) 3.7 (2.0-8.3) x10*3/uL Absolute Nucleated RBC 0.000 (0.0-0.012) X10*3/uL Nucleated RBC % (auto) 0.0 (0.0-0.2) /100WBC Sodium 140 (135-145) mmol/L Potassium 3.5 (3.3-5.1) mmol/L Chloride 102 (96-108) mmol/L Carbon Dioxide 29 (22-29) mmol/L Anion Gap 13 (12-20) BUN 16 (9-16) mg/dL Creatinine 0.75 (0.5-1.4) mg/dL Estim Creat Clear Calc 95.0 Estimated GFR > 60 Random Glucose 127 H (60-115) mg/dL Calcium 9.2 D (8.4-10.2) mg/dL Magnesium 2.1 (1.6-2.6) mg/dL Total Bilirubin 0.5 (0.0-1.0) mg/dL AST 21 (5-31) U/L ALT 20 (0-31) U/L Alkaline Phosphatase 59 (39-117) U/L Troponin I High Sens < 2.7 (<3.5-17.0) ng/L Total Protein 7.0 (6.5-8.0) g/dL Albumin 4.2 (3.5-5.0) g/dL Influenza Type A (PCR) NEGATIVE (Negative) Influenza Type B (PCR) NEGATIVE (Negative) RSV RNA Qual (PCR) NEGATIVE (Negative) SARS-CoV-2 RNA (RT-PCR) NEGATIVE (Negative) Independent Interpretation I performed an independent interpretation of an: EKG (Normal sinus rhythm at 78 beats per minutes, normal intervals, no ST-T changes, no change from previous EKG.) and Plain X-Ray (Chest: No acute intrathoracic pathology.) Discharge Plan Discharge Clinical Impression: Atypical chest pain Patient Disposition: Home, Self-Care Instructions: Chest Pain (ED) Prescriptions: No Action atorvastatin 20 mg tablet 1 tab PO DAILY bupropion HCl 100 mg tablet sustained-release 12 hr 1 tab PO BID valsartan 320 mg tablet 1 tab PO DAILY hydrochlorothiazide 25 mg tablet 1 tab PO DAILY topiramate 25 mg tablet 25 mg PO BID Qty: 60 2RF sumatriptan succinate 50 mg tablet 50 mg PO Q2-4H PRN (Reason: migraine headache) Qty: 20 4RF Rx Instructions: do not exceed 4 doses per 24 hrs clonidine HCl 0.1 mg tablet extended release 12 hr 0.1 mg PO BID PRN (Reason: hypertension) Qty: 10 0RF Rx Instructions: Take 1 tablet twice daily as needed for systolic blood pressure greater than 170 and/or diastolic blood pressure greater than 110. Referrals: Pierce Rosales MD [Primary Care Provider] - Print Language: Citizen Of [place]
[2024-06-28 14:10] LABS: MANUAL DIFF FLAG NO
[2024-06-28 14:21] LABS: Basophils Percent Auto 0.4 % (0-2); Eosinophils Absolute Auto 0.1 X10*3/uL (0.0-0.4); Eosinophils Percent Auto 1.3 % (0-4); Hematocrit 42.1 % (37.0-47.0); Hemoglobin 14.2 g/dl (12.0-16.0); Imm Gran Abs Auto 0.02 X10*3/uL (0.00-0.03); Imm Gran Pct Auto 0.2 % (0.0-0.4); Lymphocytes Absolute Auto 3.9 X10*3/uL (1.2-4.9); Lymphocytes Percent Auto 46.2 % (20-40); Mean Corpuscular HGB Conc 33.7 g/dl (31.0-35.0); Mean Corpuscular Hemoglobin 30.5 pg (27.0-33.0); Mean Corpuscular Volume 90.5 fL (80.0-98.0); Mean Platelet Volume 10.5 fL (9.4-12.3); Monocytes Absolute Auto 0.7 X10*3/uL (0.1-1.2); Monocytes Percent Auto 8.3 % (2-11); Neutrophils Absolute Auto 3.7 x10*3/uL (2.0-8.3); Neutrophils Percent Auto 43.6 % (45-73); Platelet Count 340 X10*3/uL (160-400); Red Blood Count 4.65 X10*6/uL (4.20-5.50); Red Cell Distribution Width 13.1 % (11.0-16.0); White Blood Count 8.4 X10*3/uL (4.8-10.8)
[2024-06-28 14:25] LABS: Alanine Aminotransferase 20 U/L (0-31); Albumin Level 4.2 g/dL (3.5-5.0); Alkaline Phosphatase 59 U/L (39-117); Anion Gap 13 (12-20); Aspartate Amino Transferase 21 U/L (5-31); Bilirubin Total 0.5 mg/dL (0.0-1.0); Blood Urea Nitrogen 16 mg/dL (9-16); Calcium 9.2 mg/dL (8.4-10.2); Carbon Dioxide 29 mmol/L (22-29); Chloride 102 mmol/L (96-108); Estimated Glomerular Filt Rate > 60; Glucose Random 127 mg/dL (60-115); Magnesium 2.1 mg/dL (1.6-2.6); Potassium 3.5 mmol/L (3.3-5.1); Sodium 140 mmol/L (135-145)
[2024-06-28 14:33] LABS: Troponin-I High Sensitivity < 2.7 ng/L (<3.5-17.0)
[2024-06-28 15:07] VITALS: BP 146/81; PULSE 68; RESP 18; TEMP 36.8; O2SAT 98
[2024-06-28 15:09] LABS: Influenza A PCR NEGATIVE (Negative); Influenza B PCR NEGATIVE (Negative); Resp Syncy Virus RNA Qual PCR NEGATIVE (Negative); SARS COV2 PCR INHOUSE NEGATIVE (Negative)
--- OUTSIDE RECORDS SUMMARY | 2024-06-28 15:19 | XMS_ITS | Clinical Summary ---
Author Organization [facility] it Address [address] [place] [address] Care Team Providers Care Program Medical Director Name Role Phone Luba Gao MD Primary Care Provider + Surgical History Surgery Date Site/Laterality Comments APPENDECTOMY PROCEDURE: [place] APPENDECTOMY CHOLECYSTECTOMY PROCEDURE: HISTORICAL CHOLECYSTECTOMY Medical History Medical History Date Comments Depressive disorder, not els ewhere classified 08/22/2006 DX:Depressive disorder, not elsewhere classified Seizure (CMS/HCC) 05/07/2007 DX:Seizure (HC C); COMMENT: 10/29 Morbid obesity (CMS/HCC) 09/12/2007 DX:Morb id obesity ([facility]) Allergic rhinitis 12/02/2007 DX:Allergic rh initis Hypercholesteremia 05/10/2010 DX:Hyperchole steremia Family History Medical History Relation Name Comments Diabetes Father heart problems, hypertension Heart attack Mother Relation Name Status Comments Father Mother Social History Tobacco Use Types Packs/Day Years Used Date Smoking Tobacco: Every Day Alcohol Use Standard Drinks/Week Comments Yes 0 (1 standard drink = 0.6 oz pur e alcohol) Comments Unknown Sex and Gender Information Value Date Recorded Sex Assigned at Not on file Legal Sex Female 1:32 AM EST Gender Identity Not on file Sexual Orientation Not on file Obstetrics History Plan of Treatment Health Maintenance Due Date Last Done Comments Breast Cancer Screening 1966 Hepatitis B Vaccines (1 of 3 - 19+ 3-dose series) 1985 Cervical Cancer Screening: P ap Smear 06/02/1987 Pneumococcal Vaccine: 50+ Ye ars (1 of 1 - PCV) 2016 Zoster Vaccines (1 of 2) 2016 DTaP,Tdap,and Td Vaccines (2 - Td or Tdap) 05/07/2017 05/07/2007 COVID-19 Vaccine ( - 2023-2 5 season) 2023 Influenza Vaccine (#1) 2023 HIB Vaccines Aged Out No longer eligi ble based on patient's age to complete this topic HPV Vaccines Aged Out No longer eligi ble based on patient's age to complete this topic Hepatitis A Vaccines Aged Out No long er eligible based on patient's age to complete this topic IPV Vaccines Aged Out No longer eligi ble based on patient's age to complete this topic MMR Vaccines Aged Out No longer eligi ble based on patient's age to complete this topic Meningococcal ACWY Vaccine Aged Out N o longer eligible based on patient's age to complete this topic Meningococcal B Vacine Aged Out No lo nger eligible based on patient's age to complete this topic Pneumococcal Vaccine: Pediat rics (0 to 5 Years) and At-Risk Patients (6 to 64 Years) Aged Out No longer eligi ble based on patient's age to complete this topic RSV Immunization Patients Un nida 20 months Aged Out No longer eligible b ased on patient's age to complete this topic Varicella Vaccines Aged Out No longer eligible based on patient's age to complete this topic Care Teams Program Medical Director Relationship Specialty Start Date End Date Luba Gao MD [address] [place] [id number] PCP - General 09/19/12
--- OUTSIDE RECORDS SUMMARY | 2024-06-28 15:19 | XMS_ITS ---
Author Name [facility] Organization Unknown Care Team Organization Name Specialty Phone Email Start Date End Da te [employer] 03/26/2023 0 11/11/2023
--- OUTSIDE RECORDS SUMMARY | 2024-06-28 15:20 | XMS_ITS | Data Portability ---
Author Organization [facility] [address] Address [address] [place] [address] Assessment No assessment recorded. Plan of Treatment Reminders Order Date Submit Date Provider Last Modified By Organization Details Last Modified Time Details Appointments None record ed. Lab None record ed. Referral None record ed. Procedures None record ed. Surgeries None record ed. Imaging None record ed. Medication Orders None record ed. Patient TargetsNo targets recorded. Patient InstructionsNo instructions recorded. Reason for Referral None Reported. Procedures Surgical History Date Name Laterality Status Provider Name and Address Organization Details Recorded Time 3 [facility] Send Out Template NON DOT completed BOYD HADLEY [facility] 11/09/2022 11:37:02 Imaging Results None recorded. Procedure Notes None recorded. Medical Equipment None Reported. Medications Name Sig Start Date Stop Date Status Note LastModified by Organization Details LastModified Time meloxicam 15 mg tablet TAKE ONE TABLET BY MOUTH EVERY DAY active Not Available Not Available No t Available sulfamethoxa zole 800 mg-trimethop rim 160 mg tablet TAKE 1 TABLET BY MOUTH EVERY 12 HOURS FOR 5 DAYS active Not Available Not Available N ot Available tramadol 50 mg tablet TAKE ONE TABLET BY MOUTH EVERY 6 HOURS FOR 7 DAYS active Not Available Not Available No t Available oxycodone-ac etaminophen 5 mg-325 mg tablet TAKE ONE TABLET BY MOUTH EVERY 6 HOURS FOR 7 DAYS active Not Available Not Available No t Available valsartan 320 mg tablet TAKE ONE TABLET BY MOUTH EVERY DAY active Not Available Not Available No t Available hydrochlorot hiazide 25 mg tablet TAKE 1 TABLET BY MOUTH ONCE DAILY. active Not Available Not Available No t Available Wegovy 1.7 mg/0.75 mL subcutaneous pen injector INJECT ONE PEN SUBCUTANEOU SLY ONCE A WEEK DIRECTED active Not Available Not Available No t Available Wegovy 1 mg/0.5 mL subcutaneous pen injector INJECT ONE PEN SUBCUTANEOU SLY ONCE A WEEK DIRECTED active Not Available Not Available No t Available Wegovy 0.5 mg/0.5 mL subcutaneous pen injector INJECT ONE PEN UNDER THE SKIN ONCE A WEEK DIRECTED active Not Available Not Available Not Available Vitals None Recorded Social History None recorded. Functional Status None recorded. Mental Status None recorded. Family History Nothing Reported. Medical History No medical history recorded. Gynecological HistoryNo gynecological history recorded. Obstetrics History GPAL:G 0 P 0 0 0 0 Past Encounters Encounter ID Performer Location Encounter Start Date Encounter Closed Date Diagnosis/Indication Diagnosis SNOMED-CT Code Diagnosis ICD10 Code Diagnosis Note [id number] [address] [place] [id number] 01/27/2015 17:51:21 01/27/2015 19:02:52 [id number] [address] [place] [phone] 10/02/2018 15:51:24 10/02/2018 16:53:41 [id number] [address] [place] [address] 04/06/2015 16:12:14 04/06/2015 17:05:48 [id number] [facility] [address] [address] 11/09/2022 10:28:53 11/09/2022 12:10:18 History and physical examination, occupation 584375206 Z02.1 Health Concerns Section Related Observation LastModified by Organization Detai ls LastModified Time None Recorded Concern Status LastModified by Organization Details LastModified Time None Recorded Advance Directives Directive None Recorded Payers Encounter Date Sequence Insurance Name Policy Number Policy Cunningham Covered Member ID Cunningham Member ID Guarantor Name 11/09/2022 [employer] Miriam Theodore OBGyn Episode No OBEpisode recorded.
[2024-06-28 15:51] LABS: D Dimer High Sensitivity < 150 NG/ML
[2024-06-28 16:11] LABS: Troponin-I High Sensitivity < 2.7 ng/L (<3.5-17.0)
[2024-06-28 16:56] VITALS: BP 146/81; PULSE 68; RESP 18; TEMP 36.8; O2SAT 98
== END 2024-06-28 16:57 | disposition home or self-care (01) ==
PROVIDERS: Physician Assistant Medical; Emergency Provider Emergency Medicine; PCP Internal Medicine
DX: R07.89 Other chest pain (principal); R06.02 Shortness of breath; I10 Essential (primary) hypertension; Z03.818 Encounter for observation for suspected exposure to other biological agents ruled out; Z79.02 Long term (current) use of antithrombotics/antiplatelets; Z79.899 Other long term (current) drug therapy
CPT/HCPCS: 0241U; 36415; 71046; 80053; 83735; 84484; 85025; 85379; 93005; 99283; 99285

== ENCOUNTER → 2024-06-28 13:43 | Outpatient (BNV) | payer BC, SELFPAY | PROVIDERS: Emergency Provider Emergency Medicine; PCP Internal Medicine; Visit Provider Internal Medicine Cardiovascular Disease | DX: R94.31 Abnormal electrocardiogram [ECG] [EKG] (principal); R07.9 Chest pain, unspecified | CPT/HCPCS: 93010 ==

== ENCOUNTER → 2024-06-28 13:57 | Outpatient (BNV) | payer BC, SELFPAY | PROVIDERS: Emergency Provider Emergency Medicine; PCP Internal Medicine; Visit Provider Radiology Diagnostic Radiology | DX: R07.9 Chest pain, unspecified (principal) | CPT/HCPCS: 71046 ==

== ENCOUNTER 2024-10-12 16:44 | Emergency (ER) | payer BC, SELFPAY ==
--- NOTE | ~2024-10-12 | XR_ITS ---
CLINICAL HISTORY: 2-5th digit crush injury, ?fx dislocation 3 view rightdigits Comparison: None Findings: There is vague linear lucency traverses the distal tuft of the 3rd digit. No significant arthritic change. No erosions. No radiopaque foreign body. IMPRESSION: Possible 3rd digit fracture. This document has been electronically signed by: Chicho Quezada MD on 10/12/2024 17:39:27
[2024-10-12 16:58] VITALS: BP 177/90; PULSE 93; RESP 18; TEMP 36.6; O2SAT 93; BMI 40.6
--- NOTE | 2024-10-12 16:59 | ED.UPPEXIN ---
HPI - Extremity Injury (Upper) General Chief Complaint: Extremity Problem Stated Complaint: broken fingers ? Time Seen by Provider: 10/12/24 18:02 Source: patient Mode of arrival: ambulatory Limitations: no limitations History of Present Illness ED Provider: Juanita Allen PA-C HPI narrative: Patient reports to the emergency department today for evaluation of a crush injury to her right hand. Patient states that she was at a friend's house trying to help them take care their house around the vacation she went to attempt to open up their garage and an opening it her hand got pushed into the top of the garage door and the opening. This caused it to close on 2 her most distal portion of her right middle finger. She reports feeling pain at the tip of it the most. She is denying any paresthesias or weakness but it does hurt to move it. She can move her fingers better now than when she 1st arrived the ED after anything it. She is right-hand dominant has not experienced any injuries to this hand before in the past no other injuries reported. No break in the skin. She is not on any anticoagulation Related Data Home Medications ?Medication ?Instructions ?Recorded ?Confirmed atorvastatin 20 mg tablet 1 tab PO DAILY 07/01/21 07/01/21 bupropion HCl 100 mg tablet,12 hr 1 tab PO BID 07/01/21 07/01/21 sustained-release hydrochlorothiazide 25 mg tablet 1 tab PO DAILY 07/01/21 07/01/21 valsartan 320 mg tablet 1 tab PO DAILY 07/01/21 07/01/21 Previous Rx's ?Medication ?Instructions ?Recorded sumatriptan succinate 50 mg tablet 50 mg PO Q2-4H PRN migraine 07/02/21 headache #20 tabs topiramate 25 mg tablet 25 mg PO BID #60 tabs 07/02/21 clonidine HCl 0.1 mg 0.1 mg PO BID PRN hypertension #10 05/17/22 tablet,extended release,12 hr tabs Allergies Allergy/AdvReac Type Severity Reaction Status Date / Time levofloxacin (From Levaquin) Allergy Severe THROAT Verified 10/12/24 17:02 CLOSES Review of Systems Review of Systems: Yes all other systems are reviewed and are negative PMFSH Past Medical History Attestation statement: The following information was validated with the patient. Source: old records reviewed and nursing notes reviewed Medical History Migraine with aura and with status migrainosus Hypertension Surgical History Hx of appendectomy Hx of cholecystectomy Social History Social History Alcohol intake: never Patient Tobacco Use Status: Never used Tobacco Advance Directives: No Advance Directives Information Provided: No Advance Directives Date on File: 07/03/21 service: No Current occupational status: employed Physical Exam Exam: Exam: General: Appears in no acute distress, appears well nourished body habitus is obese, appears stated age. No septic or ill-appearing. Vitals reviewed normal, PMH/Social and Surgical hx reviewed including allergies and current medications. - Head: Normocephalic, no obvious trauma or skin lesions noted. Eyes: EOMI ENMT: moist oral mucosa Neck: trachea midline Cardiovascular: peripheral perfusion normal, Regular heart rate regular rhythm Respiratory: no respiratory distress Abdomen: nondistended Extremities: Right hand: Patient's distal right middle fingers tenderness to palpation with a 1/10 of the proximal nail fold with slight subungual hematoma no deficit with range of motion but does hurt to bend actively at the D IP joint. Slight chemosis of the volar tip. There is no break in the skin cap refill less than 3 seconds distal pulses 2+ she is able to perform finger opposition and make the okay sign. 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 Psych: Cooperative Neuro: Alert and oriented. Vital Signs: Vital Signs: Last Vital Signs Temp 98 F 10/12/24 16:58 Pulse 93 10/12/24 16:58 Resp 18 10/12/24 16:58 BP 177/90 H 10/12/24 16:58 Pulse Ox 93 10/12/24 16:58 O2 Del Method Room Air 10/12/24 16:58 BMI result Body Mass Index 40.6 Course Course Course Narrative: This is an RME performed by Seferino Medina CNP: Additional HPI, ROS, PE not included below will be deferred to primary provider. Patient is a 59-year-old female right-hand dominant who presents emergency department for evaluation of traumatic injury to the right hand 30 minutes prior to arrival. Helping the friend went to close the garage door when the 2nd through 5th digit got caught/crushed in between the door resulting in pain. Harmon a cracking noise. Inability to fully extend or flex the fingers. Pain 8/10. Plan: XR Medical Decision Making Medical Decision Making [facility] Narrative: Patient presents to ED today for evaluation of right-sided hand pain . JOVANA is crush injury. This is not work related. H and P as above. Patient is afebrile with stable vitals and well-appearing. ?History and physical as stated above. ?Patient is neurovascular intact in the affected extremity. ?X-rays were obtained to further evaluate. At this time no evidence of NVC to warrant further work up/ intervention or consult. They show potential fracture of the distal phalanx of the right middle finger. ?Patient's symptoms are consistent with a contusion and tuft fracture of the right middle finger. ?Patient?s right middle finger ?was placed in a splint. Patient is neurovascularly intact. Mild subungual hematoma noted 1/10 nailbed nail trephination not indicated today. ?Discussed icing it, elevating and alternating ibuprofen and Tylenol for discomfort. ?Discussed that there is no significant improvement in the next 1 to 2 weeks to follow-up with an ?orthopedic clinic, information given. Discussed symptomatic treatment with the patient. ?Discussed return precautions. ?Patient verbalized understanding of the above plan and is in agreement with the above plan. ?The patient was discharged home in stable condition with return precautions. Differential Diagnosis Differential Diagnoses: The differential diagnosis associated with the presentation includes See MDM Admission/Observation Consideration of admission/observation: Escalation of care including admission/observation considered Patient would have been admitted to the hospital had her work up had any findings where hospital admission was appropriate and her clinical presentation warranted hospital admission. Independent Interpretation I performed an independent interpretation of an: Plain X-Ray Interpretation: Tuft fracture right distal phalanx right middle finger Radiology Impression Discussion of test interpretation with radiology: I have reviewed the radiologist's reading. Radiologist Impression: Fracture as above Tests considered The following testing was considered but not selected: Would have consider labs if patient had an open cut and she was on anticoagulation but otherwise not so not done Prescription Management I considered prescription management with: Antibiotic Would have considered oral antibiotics if there was an open laceration making this an open fracture Chronic Conditions Patient?s care impacted by: Hypertension Discharge Plan Discharge Clinical Impression: Closed fracture of tuft of distal phalanx of right middle finger Patient Disposition: Home, Self-Care Instructions: Finger Fracture (ED) Additional Instructions: You were seen in the emergency department today due to a crush injury to right hand. You have mild bruising of the right middle finger with x-rays that show a likely tuft fracture of the distal phalanx. Please take Tylenol and/or Motrin as needed for pain Use the splint for the next 7 days. After this you may use sriram taping for another few days if needed. You may remove this to shower and if at rest. Try and perform some range of motion exercises to prevent worsening stiffness. Ice for 20 minutes at a time, 3-4x daily, for the next 48 hours. You may follow up with Orthopedics. You were given a work excuse with light duty For any worsening pain or concerns please return to emergency department. There was no evidence of neurovascular compromise today or an open fracture to warrant oral antibiotics. Prescriptions: No Action atorvastatin 20 mg tablet 1 tab PO DAILY bupropion HCl 100 mg tablet sustained-release 12 hr 1 tab PO BID valsartan 320 mg tablet 1 tab PO DAILY hydrochlorothiazide 25 mg tablet 1 tab PO DAILY topiramate 25 mg tablet 25 mg PO BID Qty: 60 2RF sumatriptan succinate 50 mg tablet 50 mg PO Q2-4H PRN (Reason: migraine headache) Qty: 20 4RF Rx Instructions: do not exceed 4 doses per 24 hrs clonidine HCl 0.1 mg tablet extended release 12 hr 0.1 mg PO BID PRN (Reason: hypertension) Qty: 10 0RF Rx Instructions: Take 1 tablet twice daily as needed for systolic blood pressure greater than 170 and/or diastolic blood pressure greater than 110. Referrals: [facility] [Provider Group] Referral Note: Tuft fracture right middle finger, dominant hand Stand Alone Forms: Work/School Release Print Language: Turkish
--- OUTSIDE RECORDS SUMMARY | 2024-10-12 18:16 | XMS_ITS | Data Portability ---
Author Organization [facility], [address] Address [address] [place] [address] Assessment No assessment recorded. Plan of Treatment [...] Name and Address Organization Details Recorded Time OC-UDS Send Out Template NON DOT completed BOYD POOLEMARTHA [facility] [employer] [facility] 11/09/2022 11:37:02 Imaging Results None recorded. [...] SNOMED-CT Code Diagnosis ICD10 Code Diagnosis Note [id number] [address] [place] [phone] 01/27/2015 17:51:21 01/27/2015 19:02:52 [id number] [address] [place] [phone] 10/02/2018 15:51:24 10/02/2018 16:53:41 [id number] [address] [place] [address] 04/06/2015 16:12:14 04/06/2015 17:05:48 [id number] [facility] MIRANDA [address] [address] 11/09/2022 10:28:53 11/09/2022 12:10:18 History and physical examination, occupation [id number] Z02.1 Health Concerns Section Related Observation LastModified by Organization Detai ls LastModified Time None Recorded Concern Status LastModified by Organization Details LastModified Time None Recorded Advance Directives Directive None Recorded Payers Insurance Date Sequence Insurance Name Policy Number Policy Cunningham Covered Member ID Cunningham Member ID Guarantor Name 11/09/2022 OC[employer]CREEN [employer] Miriam Theodore 11/09/2022 1 [place] [facility] Miriam Theodore [id number] Miriam Theodore OBGymatthew Episode No OBEpisode recorded.
[2024-10-12 18:36] VITALS: BP 190/90; PULSE 74; RESP 18; TEMP 36.6; O2SAT 96
== END 2024-10-12 18:35 | disposition home or self-care (01) ==
PROVIDERS: Emergency Provider Internal Medicine; PCP Internal Medicine
DX: S62.632A Displaced fracture of distal phalanx of right middle finger, initial encounter for closed fracture (principal); W23.0XXA Caught, crushed, jammed, or pinched between moving objects, initial encounter; L60.8 Other nail disorders; Y93.E9 Activity, other interior property and clothing maintenance; Y92.015 Private garage of single-family (private) house as the place of occurrence of the external cause; Y99.8 Other external cause status
CPT/HCPCS: 29130; 73140; 99282; 99283

== ENCOUNTER → 2024-10-12 17:01 | Outpatient (BNV) | payer BC, SELFPAY | PROVIDERS: PCP Internal Medicine; Visit Provider Radiology Diagnostic Radiology | DX: S62.602A Fracture of unspecified phalanx of right middle finger, initial encounter for closed fracture (principal) | CPT/HCPCS: 73140 ==

== ENCOUNTER 2024-10-14 11:12 | Outpatient (AMB) | payer BC, SELFPAY ==
--- NOTE | 2024-10-14 11:30 | A.OFFVIS_ITS ---
Vital Signs 10/14/24 11:33 Height 5 ft 3 in Weight 244 lb BMI 43.2 Intake Visit Reasons: CP-zrhrc-vqtsg hand pain(JOVANA is crush injury) Intake Note: Miriam 59 yr old rigth hand dominant female presnets today for her rigt hand middle and ring finger injury from DOI 10/12/24 . As per ED notes patient stated that she was at a friend's house trying to help them take care their house around the vacation she went to attempt to open up their garage and an opening it her hand got pushed into the top of the garage door and the opening. This caused it to close on 2 her most distal portion of her right middle finger. She reported feeling pain at the tip of it the most. States xrays were taken and her finger were splinted. Currently she is having numbness at her DIP of her middle and also bruising. Allergies levofloxacin (From Levaquin) Allergy (Severe, Verified 10/14/24 11:32) THROAT CLOSES HPI HPI OT-xugkv-crhfx hand pain(JOVANA is crush injury): Details: Miriam is a 59 year old right hand dominant woman who presents for a right middle & ring finger fractures, S/P crush injury, DOI: 10/12/24. She caught her right hand in an automatic garage door. She was seen in the ED where her finger was splinted. She complains of pain to the tip of her fingers, along with bruising. She also complains of new numbness to the tip of her middle finger, which began following her injury. 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 Review of Systems Const All systems reviewed & are unremarkable except as noted in HPI and below Physical Exam Vital Signs: BMI result Body Mass Index 43.2 Const General: cooperative, healthy appearing and no acute distress Orientation/consciousness: patient oriented x3 HEENT Head: Yes normocephalic and Yes atraumatic Eyes EOM: EOMs intact bilaterally Resp Effort & Inspection: normal respiratory effort and able to speak in complete sentences Cardio Jugular venous distension: no JVD Skin General skin exam: turgor normal Rashes: no rashes Neuro General: patient oriented x3 Extrem Other: Evaluation of Right Upper Extremity: The patient is alert, oriented, and in no acute distress Some decreased sensation to the tip of the affected digits Cap refill brisk ROM: She can make a fist and extend all her digits, except for her middle finger DIP joint, as expected No rotational mal-alignment Skin: No lacerations or abrasions. General: No Erythema or evidence of infection. Most tender over the middle finger distal phalanx No tenderness over the ring finger Small hematoma under the middle finger eponycheal fold Ecchymosis at the fracture site No open wounds Radiographs: 3 views of the right hand were taken and viewed by me today in clinic. They show a nondisplaced distal phalanx tuft fracture of botht he middle & ring fingers Psych Appearance: grossly normal Affect: normal affect Attitude: cooperative Office Procedures AMB Fracture Care Details: Fracture care [id number] Fracture Billing Code: Fracture Billing Code Assessment & Plan Assessment & Plan (1) Fracture of distal phalanx of right middle finger: Code(s): S62.632A - Displaced fracture of distal phalanx of right middle finger, initial encounter for closed fracture Category: Medical Plan Assessment & Plan: 1. 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 She was given a note for work to remain out of work for the next 2 weeks. She will follow up in 2 weeks, with X-rays, 3V R hand, OOP. Anticipate return to light duty at next appointment, depending on her pain Scribed for Ivelisse Walton MD by Jean-Paul Kingsley, medical staff services coordinator, on 10/14/24 at 11:35 AM, EST. Coding Level of Care Code New Pt Level 3 (25597) Diagnoses Fracture of distal phalanx of right middle finger S62.632A CPT Codes Fracture Care - Fracture Billing Code: Fracture Billing Code ([id number])
[2024-10-14 11:33] VITALS: BMI 43.2
--- OUTSIDE RECORDS SUMMARY | 2024-10-14 12:15 | XMS_ITS | Data Portability ---
Author Organization [facility] [employer], [address] Address [address] [place] [address] Assessment No assessment recorded. Plan of Treatment [...] Template NON DOT completed BOYD POOLEMARTHA [facility] [employer] [facility] 11/09/2022 11:37:02 Imaging Results None recorded. [...] SNOMED-CT Code Diagnosis ICD10 Code Diagnosis Note [id number] [address] [place] [phone] 01/27/2015 17:51:21 01/27/2015 19:02:52 [id number] [address] [place] [phone] 10/02/2018 15:51:24 10/02/2018 16:53:41 [id number] [address] [place] [address] 04/06/2015 16:12:14 04/06/2015 17:05:48 [id number] QUINT[facility] MIRANDA [address] [address] 11/09/2022 10:28:53 11/09/2022 12:10:18 History and physical examination, occupation [id number] Z02.1 Health Concerns Section Related Observation LastModified by Organization Detai ls LastModified Time None Recorded Concern Status LastModified by Organization Details LastModified Time None Recorded Advance Directives Directive None Recorded Payers Insurance Date Sequence Insurance Name Policy Number Policy Cunningham Covered Member ID Cunningham Member ID Guarantor Name 11/09/2022 [employer]EN [employer] Miriam Theodore 11/09/2022 1 [place] [facility] Miriam Theodore [id number] Miriam Theodore OBGymatthew Episode No OBEpisode recorded.
--- OUTSIDE RECORDS SUMMARY | 2024-10-14 12:15 | XMS_ITS | Clinical Summary ---
Author Organization [facility] it Address [address] [place] [address] Care Team Providers Care Rehabilitation Attendant Name Role Phone Luba Gao MD Primary Care Provider + Surgical History Surgery Date Site/Laterality Comments APPENDECTOMY PROCEDURE: LA APPENDECTOMY CHOLECYSTECTOMY PROCEDURE: HISTORICAL CHOLECYSTECTOMY Medical History Medical History Date Comments Depressive disorder, not els ewhere classified 08/22/2006 DX:Depressive disorder, not elsewhere classified Seizure ([facility], [facility] V28) 05/07/2007 DX:Seizure ([facility]); COMMENT: 10/29 Morbid obesity (CMS/HCC V24, CMS/HCC V28) 008 DX:Morbid obesity (HCC) Allergic rhinitis 12/02/2007 DX:Allergic rh initis Hypercholesteremia [...] Td or Tdap) 05/07/2017 05/07/2007 COVID-19 Vaccine (1 - 2023-2 5 season) 2023 Depression Screening 03/25/2024 Influenza Vaccine (#1) 2024 HIB Vaccines Aged Out No longer eligi [...] age to complete this topic Meningococcal B Vaccine Aged Out No l onger eligible based on patient's age to complete this topic RSV Immunization Patients Un nida 20 months Aged Out No longer eligible b ased on patient's age to complete this topic Varicella Vaccines Aged Out No longer eligible based on patient's age to complete this topic Care Teams Rehabilitation Attendant Relationship Specialty Start Date End Date Luba Gao MD [address] [place] [address] PCP - General 09/19/12
== END 2024-10-14 11:53 | disposition home or self-care (01) ==
LOC: HO.HOS 11:13
PROVIDERS: PCP Internal Medicine; Visit Provider Orthopaedic Surgery
DX: S62.632A Displaced fracture of distal phalanx of right middle finger, initial encounter for closed fracture (principal)
CPT/HCPCS: 99203

== ENCOUNTER 2024-10-27 08:36 | Outpatient (REF) | payer BC, SELFPAY ==
--- NOTE | ~2024-10-27 | XR_ITS ---
EXAMINATION: XR HAND 3 OR MORE VIEWS RIGHT HISTORY: M79.641 - Pain in right hand COMPARISON: Comparison is made with the prior examination of the right middle finger dated 10/12/2024. FINDINGS: Three views of the right hand are submitted. Osseous mineralization is normal. Again seen is a nondisplaced fracture of the distal tuft of the middle finger. The fracture line remains visible. The joint spaces are preserved. The soft tissues are unremarkable. XR/XR hand RT min 3V IMPRESSION: Nondisplaced fracture of the distal tuft of the middle finger. Electronically signed by: Heriberto Merchant MD 10/27/2024 09:18 AM EDT
--- OUTSIDE RECORDS SUMMARY | 2024-10-28 08:48 | XMS_ITS | Clinical Summary ---
Author Organization [facility] it Address [address] [place] [address] Care Team Providers Care Defence Intelligence Analyst Name Role Phone Luba Gao MD Primary Care Provider + Surgical History Surgery Date Site/Laterality Comments APPENDECTOMY PROCEDURE: PA APPENDECTOMY CHOLECYSTECTOMY PROCEDURE: HISTORICAL CHOLECYSTECTOMY Medical History Medical History Date Comments Depressive disorder, not els ewhere classified 08/22/2006 DX:Depressive disorder, not elsewhere classified Seizure ([facility] V24, CMS/[facility] V28) 05/07/2007 DX:Seizure ([facility]); COMMENT: 10/29 Morbid obesity (CMS/HCC V24, CMS/HCC [...] age to complete this topic Care Teams Defence Intelligence Analyst Relationship Specialty Start Date End Date Luba Gao MD [address] [place] [id number] PCP - General 09/19/12
== END 2024-10-27 08:37 | disposition home or self-care (01) ==
LOC: HO.HOSX 08:36
PROVIDERS: Visit Provider Orthopaedic Surgery
DX: S62.632A Displaced fracture of distal phalanx of right middle finger, initial encounter for closed fracture (principal); W23.0XXA Caught, crushed, jammed, or pinched between moving objects, initial encounter; M79.641 Pain in right hand
CPT/HCPCS: 73130

== ENCOUNTER 2024-10-27 09:01 | Outpatient (AMB) | payer BC, SELFPAY ==
[2024-10-27 09:19] VITALS: BMI 43.2
--- NOTE | 2024-10-27 09:19 | MHC.OFFVIS ---
Vital Signs 10/27/24 09:19 Height 5 ft 3 in Weight 244 lb BMI 43.2 Intake Visit Reasons: OV right-sided hand pain(JOVANA is crush injury) Intake Note: Miriam is a 59 year old right hand dominant woman who presents for her follow up visit for her right middle & ring finger fractures, S/P crush injury, DOI: 10/12/24. She caught her right hand in an automatic garage door. At her last visit she was given a finger spica splint to be worn and a note to remain out of work for 2 weeks. Currently states she has soreness, tenderness and swelling. She continues to wear finger splint, states she removed it yesterday and banged her finger accidentally a few things. 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 Her right middle finger tip is turpentine distiller to palpation. Her ring fingertip is nontender to palpation She has a small subungual hematoma beneath the nail of the right middle finger She can fully and actively extend all digits, and she can actively bring all of her fingers close to a weak fist. Her swelling appears to be improving. Sensation is still diminished in the tip of the middle finger. Cap refill is brisk Radiographs: three views of her right hand were taken today and reviewed by me in clinic. They again show the tuft fracture of the right middle finger that appears to be minimally displaced.. Satisfactory fracture alignment today. Assessment & Plan Assessment & Plan (1) Fracture of distal phalanx of right middle finger: Code(s): S62.632A - Displaced fracture of distal phalanx of right middle finger, initial encounter for closed fracture Category: Medical Plan Assessment & Plan: 1. Right middle finger distal phalanx tuft fracture, closed, non-displaced From a crush injury, DOI: 10/12/24 I educated her about this condition She appears to be healing well. She has a finger splint that she will wear for comfort and to avoid re-injury for another couple of weeks. No operative treatment indicated at this time, we will manage this conservatively She is doing well with the range of motion exercises. 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 We kept her out of work for the past 2 weeks. After talking with her she is going to try to return to work on Saturday light duty with a 2 lb weight limit. I have also asked that baby understanding that she is going to be a little slower because she has a broken fingertip. If she has trouble with this she will let me know, as I have no problem keeping her out of work for another 2 weeks if she needs it. She will follow up in 4 weeks. No radiographs are necessary unless she re-injured her finger. At that time we can hopefully return her to full duty. Orders: Orders XR hand RT min 3V Today M79.641 - Pain in right hand Coding Level of Care Code Global (80712) Diagnoses Fracture of distal phalanx of right middle finger S62.632A
--- OUTSIDE RECORDS SUMMARY | 2024-10-27 09:20 | XMS_ITS | Clinical Summary ---
Author Organization [facility] [employer] [facility] it Address [address] [place] [address] Care Team Providers Care Inside Sales Advisor Name Role Phone Luba Gao MD Primary Care Provider + Surgical History Surgery Date Site/Laterality Comments APPENDECTOMY PROCEDURE: [place] APPENDECTOMY CHOLECYSTECTOMY PROCEDURE: HISTORICAL CHOLECYSTECTOMY Medical History Medical History Date Comments Depressive disorder, not els ewhere classified 08/22/2006 DX:Depressive disorder, not elsewhere classified Seizure ([facility] V24, CMS/[facility] V28) 05/07/2007 DX:Seizure ([facility]); COMMENT: 10/29 Morbid obesity (CMS/HCC V24, CMS/HCC [...] age to complete this topic Care Teams Inside Sales Advisor Relationship Specialty Start Date End Date Luba Gao MD [address] [place] [phone] PCP - General 09/19/12
== END 2024-10-27 09:49 | disposition home or self-care (01) ==
LOC: HO.HOS 09:02
PROVIDERS: PCP Internal Medicine; Visit Provider Orthopaedic Surgery
DX: S62.632A Displaced fracture of distal phalanx of right middle finger, initial encounter for closed fracture (principal)
CPT/HCPCS: 99024; 99213

== ENCOUNTER → 2024-10-27 09:04 | Outpatient (BNV) | payer BC, SELFPAY | PROVIDERS: Visit Provider Radiology Diagnostic Radiology | DX: S62.662D Nondisplaced fracture of distal phalanx of right middle finger, subsequent encounter for fracture with routine healing (principal) | CPT/HCPCS: 73130 ==